=== PATIENT | female | born 1950 | race Caucasian/White ===

== ENCOUNTER 2019-11-01 13:56 | Outpatient (CLI) | payer MEDICARE, SELFPAY ==
--- NOTE | ~2019-11-01 | MM_ITS ---
EXAMINATION: MM screening luiza BI w armen HISTORY: Screening mammogram, family history of breast cancer in her mother. TECHNIQUE: Craniocaudal and mediolateral oblique 3-D tomosynthesis images were obtained and synthetic 2-D images were generated. CAD analysis was submitted and interpreted. COMPARISON: 10/27/2018, 08/14/2017, 08/05/2017, 04/22/2016 BREAST PARENCHYMAL COMPOSITION: The breasts are heterogeneously dense, which may obscure small masses . FINDINGS: There is no evidence of suspicious mass, calcification, or architectural distortion to sugg est malignancy in either breast. There has been no suspicious interval change. IMPRESSION: 1. No mammographic evidence of malignancy. 2. Recommend routine screening mammography in one year. BI-RADS Category 1: Negative Reviewed, dictated and finalized at location A.
--- NOTE | ~2019-11-01 | DEXA_ITS ---
Bone Density Report Name: Jane Pereyra Age: 68 Sex: Female Ethnicity: White Date of : 1950 Indication: postmenopausal osteoporosis; parental hip fracture; height loss; prior fracture; hysterectomy; Referring Provider: Valarie Velasquez Study: Bone densitometry was performed. Exam Date: November 01, 2019 Accession number: [id number] Bone Density: Region BMD T-score Z-score Classification AP Spine (L1-L4) 0.797 -2.3 -0.1 Osteopenia Femoral Neck (Left) 0.556 -2.6 -0.8 Osteoporosis Total Hip (Left) 0.646 -2.4 -0.9 Osteopenia Total Hip Bilateral Avg 0.633 -2.5 -1.0 Osteoporosis Femoral Neck (Right) 0.534 -2.8 -1.0 Osteoporosis Total Hip (Right) 0.619 -2.6 -1.1 Osteoporosis World Health Organization criteria for BMD impression classify patients as: Normal (T-score at or above -1.0), Osteopenia (T-score between -1.0 and -2.5), or Osteoporosis (T-score at or below -2.5). 10-year Fracture Risk: FRAX not reported because: Some T-score for Spine Total or Hip Total or Femoral Neck at or below -2.5 Previous Exams: Region Exam Age BMD T-score BMD Change BMD Change Date g/cm2 vs Baseline vs Previous AP Spine(L1-L4) 11/01/2019 68 0.797 -2.3 0.011(1.4%) -0.028(-3.4%)* 02/24/2017 66 0.824 -2.0 0.038(4.9%)* 0.038(4.9%)* 07/11/2014 63 0.786 -2.4 Total Hip(Left) 11/01/2019 68 0.646 -2.4 0.040(6.6%)* 0.026(4.2%) 02/24/2017 66 0.620 -2.6 0.014(2.3%) 0.014(2.3%) 07/11/2014 63 0.606 -2.8 Total Hip(Right) 11/01/2019 68 0.619 -2.6 -0.002(-0.3%) -0.009(-1.4%) 02/24/2017 66 0.627 -2.6 0.006(1.0%) 0.006(1.0%) 07/11/2014 63 0.621 -2.6 *Denotes significance at 95% confidence level, LSC for AP Spine = 0.022 g/cm2, LSC for Total Hip = 0.027 g/cm2 Clinical Information Provided by Patient: Has had a low trauma fracture Parent has had a hip fracture Has used the following medications: Vitamin D Has the following medical conditions: Hysterectomy Patient maximum height was 69 Menopause Age: 43 Drinks caffeinated beverages Onset of menses at age 10 Number of children 2 Impression: The patient has established osteoporosis, based on the Right Femoral Neck T-score and the existence of a prior fracture. The patient has risk factors, including: parental hip fracture, previous fracture. The BMD for the AP Spine(L1-L4) decreased, changing by -3.4% since the last DXA exam. Discussion: HIGH RISK OF FRACTURE. BONE DENSITY IS UNDESIRAB
== END 2019-11-01 13:57 | disposition home or self-care (01) ==
PROVIDERS: PCP Family Medicine; Visit Provider Nurse Practitioner
DX: Z12.31 Encounter for screening mammogram for malignant neoplasm of breast (principal); Z78.0 Asymptomatic menopausal state; M85.89 Other specified disorders of bone density and structure, multiple sites; M81.0 Age-related osteoporosis without current pathological fracture
CPT/HCPCS: 77063; 77067; 77080

== ENCOUNTER 2020-06-09 11:59 | Outpatient (CLI) | payer MEDICARE, SELFPAY ==
--- NOTE | ~2020-06-09 | CT_ITS ---
EXAMINATION:CT chest w con DATE: 06/09/2020 12:33 INDICATION: Ascending aortic aneurysm. TECHNIQUE: Computed tomography (CT) of the chest was performed with 75 mL Omnipaque 350 intravenous c ontrast. Automated exposure control and iterative reconstruction technique were employed. The dose-le ngth product (DLP) was 189.25 mGy-cm. COMPARISON: Chest CT 04/23/2019 FINDINGS: There is mild scarring at the lung apices. Again seen are numerous nodules and groundglass nodules scattered the lungs measuring up to 5 mm, likely benign. No pleural effusion. The heart size is normal. No pericardial effusion. There is ectasia of ascending aorta measuring 4.7 cm. Descending aorta is normal in caliber. There is moderate thoracic spondylosis. There is a hemangioma in upper th oracic spine. IMPRESSION: 1. Stable ectasia of ascending aorta measuring 4.7 cm. Reviewed, dictated and finalized at location A. ER/[facility]
[2020-06-09 12:25] LABS: Estimated Glomerular Filt Rate > 60
== END 2020-06-09 12:00 | disposition home or self-care (01) ==
PROVIDERS: PCP Family Medicine; Visit Provider Internal Medicine Cardiovascular Disease
DX: I71.2 Thoracic aortic aneurysm, without rupture (principal)
CPT/HCPCS: 71260; Q9967

== ENCOUNTER 2020-09-29 16:33 | Outpatient (CLI) | payer MEDICARE, SELFPAY ==
--- NOTE | ~2020-09-29 | CT_ITS ---
EXAMINATION: CT facial bones wo con DATE: 09/29/2020 16:55 INDICATION: Face injury. TECHNIQUE: Computed tomography (CT) of the facial bones and maxillofacial region was performed withou t intravenous contrast. Automated exposure control and iterative reconstruction technique were employ ed. The dose-length product was 283.00 mGy-cm. COMPARISON: None. FINDINGS: There is soft tissue swelling in the perihilar regions and right frontal scalp. The orbits are normal. There is a 2.5 cm mass in right sylvian fissure. There is a fracture of the right nasal b one. There is leftward deviation of the nasal septum. There is mild mucosal thickening in the ethmoid sinuses. IMPRESSION: 1. Fracture of the right nasal bone. 2. 2.5 cm mass in the right sylvian fissure, which may be an aneurysm or meningioma. Head CTA is mahad mmended. Reviewed, dictated and finalized at location A. OW SHADE CUTTER IMPRESSION: 1. Fracture of the right nasal bone. 2. 2.5 cm mass in the right sylvian fissure, which may be an aneurysm or mening ioma. Head CTA is recommended.
--- NOTE | ~2020-09-29 | CT_ITS ---
EXAMINATION: CT brain wo con DATE: 09/29/2020 16:56 INDICATION: Head injury. TECHNIQUE: Computed tomography (CT) of the head was performed without intravenous contrast. The mA wa s adjusted according to patient size. Iterative reconstruction technique was employed. The dose-lengt h product was 605.33 mGy-cm. COMPARISON: Head CT 08/17/2012 FINDINGS: There is a 1.8 x 2.3 x 2.4 cm hyperdense mass in right sylvian fissure. There are scattered areas of low attenuation in the cerebral white matter. There is no intracranial hemorrhage or acute ischemic infarct. There is a right frontal scalp hematoma. There is mild mucosal thickening in the pa ranasal sinuses. The orbits are normal. The mastoid air cells are normal. IMPRESSION: 1. 2.4 cm hyperdense mass in right sylvian fissure, which may be an aneurysm or meningioma. Head CTA is recommended. 2. Mild nonspecific cerebral white matter disease, which likely represents chronic small vessel ische sakshi disease. Reviewed, dictated and finalized at location A. PROFESSOR IMPRESSION: 1. 2.4 cm hyperdense mass in right sylvian fissure, which may be an aneurysm or meningioma. Head CTA is recommended. 2. Mild nonspecific cerebral white matter disease, which likely represents assistant department manager chely small vessel ischemic disease.
== END 2020-09-29 16:34 | disposition home or self-care (01) ==
PROVIDERS: PCP Family Medicine; Visit Provider Nurse Practitioner
DX: S02.2XXA Fracture of nasal bones, initial encounter for closed fracture (principal); S00.83XA Contusion of other part of head, initial encounter; W19.XXXA Unspecified fall, initial encounter; R93.89 Abnormal findings on diagnostic imaging of other specified body structures; R90.82 White matter disease, unspecified
CPT/HCPCS: 70450; 70486

== ENCOUNTER 2020-09-29 17:50 | Emergency (ER) | payer MEDICARE, SELFPAY ==
--- NOTE | ~2020-09-29 | CT_ITS ---
EXAMINATION: CTA brain carotid DATE: 09/29/2020 20:41 INDICATION: Brain mass. TECHNIQUE: Computed tomographic angiography (CTA) of the head was performed with 100 mL Omnipaque-350 intravenous contrast. CTA of the neck was performed with intravenous contrast. Automated exposure co ntrol and iterative reconstruction technique were employed. The dose-length product was 1019.34 mGy-c m. Maximum intensity projection and volume rendered 3D-reconstructions were created by the [employer] on a separate workstation. COMPARISON: Head CT 09/29/2020, chest CT 06/09/2020 FINDINGS: HEAD CTA: There is no acute ischemic infarct or intracranial hemorrhage. There is a 2.4 x 2.1 cm hype rdense mass in right sylvian fissure. The ventricles are normal in size. There is mild mucosal thicke mervin in the ethmoid sinuses. The mastoid air cells are normal. There is soft tissue swelling in the p eriorbital regions and right frontal scalp. There is a 4 mm aneurysm in a sulcus in posterior left fr ontal lobe. Right vertebral artery is dominant. There is no significant stenosis of basilar artery or the posterior cerebral arteries. There is a dissection of distal left cervical internal carotid gricelda ry. There is no significant stenosis of the anterior or middle cerebral arteries. Anterior communicat ing artery is normal. The posterior communicating arteries are normal. NECK CTA: There is mild scarring at the lung apices. Again seen are multiple nodules in the lungs dudley suring up to 4 mm, likely benign. There is ectasia of ascending aorta measuring 4.7 cm. 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 There is an intimal flap in distal right vertebral artery. There is mild plaque in proximal right internal carotid artery. There is 0% stenosis of the proximal right internal carotid artery relative to normal distal artery lumen diameter (NASCET criteria). The re is 0% stenosis of the proximal left internal carotid artery relative to normal distal artery lumen diameter. 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 There is mild cervical spondylosis. There is a hemangioma in T10 vertebral body. IMPRESSION: 1. 2.4 cm mass in right sylvian fissure, consistent with a meningioma. 2. 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 3. 0% stenosis of the proximal internal carotid arteries relative to normal distal artery lumen diam eters (NASCET criteria). 4. Dissections involving right subclavian artery, distal right vertebral artery, and cervical left in ternal carotid artery. 5. Stable ectasia of ascending aorta measuring 4.7 cm. Reviewed, dictated and finalized at location A. STRAIGHTENER IMPRESSION: 1. 2.4 cm mass in right sylvian fissure, consistent with a meningioma. 2. 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 3. 0% stenosis of the proximal internal carotid arteries relative to normal di stal artery lumen diameters (NASCET criteria). 4. Dissections involving right subclavian artery, distal right vertebral artery , and cervical left internal carotid artery. 5. Stable ectasia of ascending aorta measuring 4.7 cm.
[2020-09-29 19:25] VITALS: BP 176/116; PULSE 75; RESP 16; TEMP 37.1; O2SAT 99
[2020-09-29 19:45] VITALS: BP 185/116; PULSE 70; RESP 17; O2SAT 100
--- NOTE | 2020-09-29 19:48 | ED.FALL ---
HPI - Fall General Chief Complaint: Fall <CARTER Gutierrez Last Filed: 09/29/20 22:39> Stated Complaint: fall/needs more imaging <CARTER Gutierrez Last Filed: 09/29/20 22:39> Time Seen by Provider: 09/29/20 19:33 <CARTER Gutierrez Last Filed: 09/29/20 22:39> Source: patient <CARTER Gutierrez Last Filed: 09/29/20 22:39> Mode of arrival: ambulatory <CARTER Gutierrez Last Filed: 09/29/20 22:39> Limitations: no limitations <CARTER Gutierrez Last Filed: 09/29/20 22:39> History of Present Illness HPI Narrative: This is a 69 year old female that presents to the ER for abnormal imaging that was done outpatient. Reports she had a fall yesterday. Reports she was walking in the parking lot and tripped. Reports falling forward and hitting her face. Reports she was seen by her primary today and had some outpatient imaging. Reports she was told to come to the ED for further evaluation due to a mass versus an aneurysm. She is on Xarelto for A. fib. Denies loss of consciousness, other injuries, prodromal symptoms, vision changes, vomiting, numbness, or weakness. <CARTER Gutierrez Last Filed: 09/29/20 22:39> Related Data Home Medications: Home Medications Medication Instructions Recorded Confirmed metoprolol tartrate 100 mg tablet 50 mg PO tablet 09/13/19 09/29/20 rivaroxaban 20 mg tablet 20 mg PO DAILY 03/10/20 09/29/20 lisinopril 10 mg tablet 20 mg PO DAILY tablet 08/31/20 09/29/20 sotalol 80 mg tablet 40 mg PO BID tablet 08/31/20 09/29/20 <CARTER Guteirrez Last Filed: 09/29/20 22:39> Allergies/Adverse Reactions: Allergies Allergy/AdvReac Type Severity Reaction Status Date / Time No Known Allergies Allergy Verified 09/29/20 19:44 <CARTER Gutierrez Last Filed: 09/29/20 22:39> Review of Systems Review of Systems: Narrative: CONSTITUTIONAL: Denies fever EYES: Denies visual changes GASTROINTESTINAL: Denies vomiting MUSCULOSKELETAL: Denies back pain, joint pain, or myalgia. NEUROLOGIC: Denies headache, numbness, or weakness. <Tequila Hale PA-C - Last Filed: 09/29/20 22:39> All systems reviewed & are unremarkable except as noted in HPI and below <Tequila Hale PA-C - Last Filed: 09/29/20 22:39> PMFSH Past Medical History Medical History: Medical History Age-related osteoporosis without current pathological fracture Atrial fibrillation, chronic Breast cancer screening Coronary artery disease involving [place] coronary artery of [place] heart without angina pectoris Essential hypertension Hyperlipidemia, unspecified Hypothyroidism, unspecified <Tequila Hale PA-C - Last Filed: 09/29/20 22:39> Family History Family History: Family History Sibling Family history of malignant neoplasm of male breast, Onset Age: 30 Other Family history of cardiovascular disease Family history of malignant neoplasm of breast Hypertension <Tequila Hale PA-C - Last Filed: 09/29/20 22:39> Social History Social History: Social History Smoking status: Never smoker Second hand tobacco smoke exposure: No Alcohol intake: never Gender identity (if verbalized by the patient): Female Sexual Orientation (if Verbalized by the Patient): Straight or Heterosexual <Tequila Hale PA-C - Last Filed: 09/29/20 22:39> Exam Narrative: Exam Narrative: GENERAL: Elderly, well-nourished, and in no acute distress. HEAD: Normocephalic. Bruising of the upper and lower eyelids EYES: PERRLA and EOMI. ENT: Nares clear, no rhinorrhea or epistaxis. Mucous membranes moist. Oropharynx without tonsillar hypertrophy exudate or other lesions. Bilateral TMs pearly hawkins non-bulging NECK: Supple. No adenopathy or masses. CHEST: Clear to auscultation. No re
[2020-09-29] MEDS: LABETALOL HCL INJ 100 MG/20 ML VIAL 20 MG IV PUSH ×2 (19:54→21:21)
[2020-09-29 19:56] LABS: Basophils Percent Auto 0.5 % (0.2-1.2); Eosinophils Absolute Auto 0.1 K/mm3 (0-0.3); Eosinophils Percent Auto 1.8 % (0-4.4); Hematocrit 41.3 % (37.0-47.0); Hemoglobin 13.4 g/dL (12.0-15.0); Immature Granulocyte Absolute 0.01 K/mm3 (0.00-0.031); Immature Granulocyte Percent A 0.2 % (0-0.5); Lymphocytes Absolute Auto 2.05 K/mm3 (0.9-3.2); Lymphocytes Percent Auto 32.7 % (18.3-44.2); Mean Corpuscular HGB Conc 32.4 g/dl (32-36); Mean Corpuscular Hemoglobin 29.4 pg (26-34); Mean Corpuscular Volume 90.6 fl (80-100); Mean Platelet Volume 10.5 fl (7.4-10.4); Monocytes Absolute Auto 0.5 K/mm3 (0.1-0.6); Monocytes Percent Auto 7.8 % (2.6-8.5); Neutrophils Absolute Auto 3.6 K/mm3 (1.3-6.7); Platelet Count Result 189 k/mm3 (150-375); Red Blood Count 4.56 M/mm3 (4.2-5.4); Red Cell Distribution Width 13.7 % (11.5-14.5); White Blood Count 6.3 K/mm3 (4.5-10.0)
[2020-09-29 20:05] LABS: Prothrombin Time 13.4 Seconds (11.1-14.7)
[2020-09-29 20:06] LABS: Partial Thromboplastin Time 29.3 SECONDS (22.3-36.8)
[2020-09-29 20:09] LABS: Anion Gap 3 mmol/L (8-16); Blood Urea Nitrogen 12 mg/dL (7-17); Calcium 9.1 mg/dL (8.4-10.2); Carbon Dioxide 32 mmol/L (22-30); Chloride 105 mmol/L (98-107); Estimated CRCL calculation 76 ml/min; Estimated Glomerular Filt Rate > 60; Glucose 95 mg/dL (65-105); Potassium 3.6 mmol/L (3.4-5.0); Sodium 140 mmol/L (137-145)
[2020-09-29 20:22] VITALS: BP 176/108; PULSE 71; RESP 16; O2SAT 100
[2020-09-29 21:50] VITALS: BP 156/113; PULSE 75; RESP 16; O2SAT 99
[2020-09-29 22:39] VITALS: BP 152/104; PULSE 82; RESP 16; O2SAT 99
== END 2020-09-29 22:51 | disposition left against medical advice (07) ==
PROVIDERS: Physician Assistant; Emergency Provider Emergency Medicine; PCP Family Medicine
DX: I77.74 Dissection of vertebral artery (principal); I77.71 Dissection of carotid artery; I77.79 Dissection of other specified artery; I67.1 Cerebral aneurysm, nonruptured; S02.2XXA Fracture of nasal bones, initial encounter for closed fracture; I48.20 Chronic atrial fibrillation, unspecified; Z79.01 Long term (current) use of anticoagulants; M81.0 Age-related osteoporosis without current pathological fracture; I25.10 Atherosclerotic heart disease of native coronary artery without angina pectoris; I10 Essential (primary) hypertension; E78.5 Hyperlipidemia, unspecified; E03.9 Hypothyroidism, unspecified; W01.0XXA Fall on same level from slipping, tripping and stumbling without subsequent striking against object, initial encounter
CPT/HCPCS: 36415; 70450; 70486; 70496; 70498; 80048; 85025; 85610; 85730; 96374; 96376; 99284; Q9967

== ENCOUNTER 2020-10-14 00:55 | Inpatient (IN) | payer MEDICARE, SELFPAY ==
[2020-10-14] VITALS (24 sets, daily range): BP systolic 112–151; BP diastolic 78–97; PULSE 60–190; RESP 12–24; TEMP 36.1–36.7; O2SAT 94–99; BMI 28.4
--- NOTE | ~2020-10-14 | XR_ITS ---
EXAMINATION: XR chest 1V portable DATE: 10/14/2020 01:20 INDICATION: Chest pain. TECHNIQUE: A single frontal view of the chest was obtained on 2 radiographs. COMPARISON: Chest 2 views 08/05/2017, chest CT 06/09/2020, neck CTA 09/29/2020 FINDINGS: There is mild scarring at the lung apices. There is mild atelectasis at the lung bases. No pleural effusion or pneumothorax. The heart size is normal. IMPRESSION: 1. Mild atelectasis at the lung bases and mild scarring at the lung apices. Reviewed, dictated and finalized at location A. [facility]
--- NOTE | 2020-10-14 00:59 | PC.NURSE ---
12mg adenosine given at this time.
--- NOTE | 2020-10-14 01:02 | PC.NURSE ---
pt given 20mg cardizem at this time
[2020-10-14 01:24] LABS: Basophils Percent Auto 0.4 % (0.2-1.2); Eosinophils Absolute Auto 0.1 K/mm3 (0-0.3); Eosinophils Percent Auto 0.8 % (0-4.4); Hematocrit 44.2 % (37.0-47.0); Hemoglobin 14.3 g/dL (12.0-15.0); Immature Granulocyte Absolute 0.04 K/mm3 (0.00-0.031); Immature Granulocyte Percent A 0.4 % (0-0.5); Lymphocytes Absolute Auto 2.28 K/mm3 (0.9-3.2); Mean Corpuscular HGB Conc 32.4 g/dl (32-36); Mean Corpuscular Hemoglobin 30.4 pg (26-34); Mean Corpuscular Volume 93.8 fl (80-100); Mean Platelet Volume 10.6 fl (7.4-10.4); Monocytes Absolute Auto 0.5 K/mm3 (0.1-0.6); Monocytes Percent Auto 4.8 % (2.6-8.5); Neutrophils Absolute Auto 7.4 K/mm3 (1.3-6.7); Neutrophils Percent Auto 71.6 % (45.5-73.1); Platelet Count Result 265 k/mm3 (150-375); Red Blood Count 4.71 M/mm3 (4.2-5.4); Red Cell Distribution Width 13.6 % (11.5-14.5); White Blood Count 10.4 K/mm3 (4.5-10.0)
[2020-10-14 01:34] LABS: INR 1.7; Prothrombin Time 20.2 Seconds (11.1-14.7)
[2020-10-14 01:35] LABS: Alanine Aminotransferase 182 U/L (4-35); Albumin Level 3.7 g/dL (3.5-5.1); Alkaline Phosphatase 71 U/L (38-126); Anion Gap 6 mmol/L (8-16); Aspartate Amino Transferase 227 U/L (14-36); Bilirubin,Total 0.4 mg/dL (0.2-1.3); Blood Urea Nitrogen 24 mg/dL (7-17); Carbon Dioxide 29 mmol/L (22-30); Chloride 106 mmol/L (98-107); Estimated CRCL calculation 54 ml/min; Estimated Glomerular Filt Rate 55; Glucose 214 mg/dL (65-105); Partial Thromboplastin Time 36.5 SECONDS (22.3-36.8); Potassium 3.9 mmol/L (3.4-5.0); Sodium 141 mmol/L (137-145)
--- NOTE | 2020-10-14 01:47 | ECG_ITS ---
Measurements Intervals [place] Rate: 193 P: [place]: 0 QRS: 6 QRSD: 101 T: 144 QT: 246 QTc: 441 Interpretive Statements SUPRAVENTRICULAR TACHYCARDIA LEFT VENTRICULAR HYPERTROPHY WITH ST-T CHANGE ST-T WAVE ABNORMALITY IN ANTEROLAT/HIGH LAT LEADS- CONSIDER ISCHEMIA OR RATE RELATED BASELINE WANDER- V3-V5 ABNORMAL ECG Electronically Signed On 10-14-2020 7:34:56 GAME PROGRAMER by Black Zeng D.O.
[2020-10-14 01:49] LABS: NT Pro B Type Natriuretic Pept 1330 PG/ML (5-100); Troponin I 0.084 ng/mL (0.000-0.034)
--- NOTE | 2020-10-14 01:49 | ECG_ITS ---
Measurements Intervals [place] Rate: 81 P: [place]: 0 QRS: 15 QRSD: 87 T: 69 QT: 327 QTc: 381 Interpretive Statements SINUS RHYTHM WITH SINUS ARRHYTHMIA WITH FIRST DEGREE AV BLOCK BORDERLINE ST-T WAVE ABNORMALITY- DIFFUSE LEADS BASELINE ARTIFACT- III, V1-V3 ABNORMAL ECG Electronically Signed On 10-14-2020 7:25:47 CLIENT RELATION SPECIALIST by Black Zeng D.O.
--- NOTE | 2020-10-14 02:04 | ED.GENADULT ---
HPI - General Adult General Chief complaint: Arrhythmia/Palpitations Stated complaint: rapid heart rate History of Present Illness HPI narrative: Patient is a 69-year-old female who presents the emergency department with chief complaint of chest pain and palpitations. The patient reports she has history of atrial fibrillation and tonight noticed that she started having discomfort in her chest. The patient noticed also that her heart was beating fast when EMS was called she was found to have a heart rate in the 200s. Patient was treated with adenosine in the field which had a brief slowing of the patient's heart rate they were unable to tell whether the patient was in a supraventricular rhythm or she was atrial fibrillation. The patient does carry a prior history of atrial fibrillation she is on chronic anticoagulation on sotalol. The patient states that she was having chest discomfort whenever her heart was beating fast. Related Data Home Medications Medication Instructions Recorded Confirmed metoprolol tartrate 100 mg tablet 50 mg PO tablet 09/13/19 09/29/20 rivaroxaban 20 mg tablet 20 mg PO DAILY 03/10/20 09/29/20 lisinopril 10 mg tablet 20 mg PO DAILY tablet 08/31/20 09/29/20 sotalol 80 mg tablet 40 mg PO BID tablet 08/31/20 09/29/20 Allergies Allergy/AdvReac Type Severity Reaction Status Date / Time No Known Allergies Allergy Verified 09/29/20 19:44 Review of Systems Review of Systems: Narrative: GENERAL: Well-appearing, well-nourished, and in no acute distress. HEAD: Normocephalic, atraumatic. EYES: PERRLA and EOMI. ENT: Nares clear, no rhinorrhea or epistaxis. Mucous membranes moist. NECK: Supple. CHEST: Clear to auscultation. No respiratory distress. HEART: Regular rate and rhythm. No murmur heard. Normal peripheral pulses. ABDOMEN: Soft, nontender, nondistended, normal active bowel sounds. EXTREMITIES: Normal range of motion. No edema. SKIN: Warm, dry, no rash. NEURO: No focal deficits. Alert and oriented x3. PSYCH: Normal mood and affect. [facility] Past Medical History Medical History Age-related osteoporosis without current pathological fracture Atrial fibrillation, chronic Breast cancer screening Coronary artery disease involving [place] coronary artery of [place] heart without angina pectoris Essential hypertension Hyperlipidemia, unspecified Hypothyroidism, unspecified Family History Family History Sibling Family history of malignant neoplasm of male breast, Onset Age: 30 Other Family history of cardiovascular disease Family history of malignant neoplasm of breast Hypertension Social History Social History Smoking status: Never smoker Second hand tobacco smoke exposure: No Alcohol intake: never Gender identity (if verbalized by the patient): Female Exam Narrative: Exam Narrative: GENERAL: Well-appearing, well-nourished, and in no acute distress. HEAD: Normocephalic, atraumatic. EYES: PERRLA and EOMI. ENT: Nares clear, no rhinorrhea or epistaxis. Mucous membranes moist. NECK: Supple. CHEST: Clear to auscultation. No respiratory distress. HEART: Regular rate and rhythm. No murmur heard. Normal peripheral pulses. ABDOMEN: Soft, nontender, nondistended, normal active bowel sounds. EXTREMITIES: Normal range of motion. No edema. SKIN: Warm, dry, no rash. NEURO: No focal deficits. Alert and oriented x3. PSYCH: Normal mood and affect. Course Vital Signs Vital signs: Vital Signs Temperature 36.7 C 10/14/20 00:59 Pulse Rate 188 H 10/14/20 00:59 Respiratory Rate 24 H 10/14/20 00:59 Blood Pressure 143/89 H 10/14/20 00:59 Pulse Oximetry 94 10/14/20 00:59 Temperature 36.7 C 10/14/20 00:59 Pulse Rate 64 10/14/20 01:38 Respiratory Rate 18 10/14/20 01:38 Blood Pressure 112
[2020-10-14 02:39] LABS: Add Urine Microscopic? YES; Appearance Urine Cloudy (Clear); Bacteria Urine Trace /hpf; Bilirubin Urine Negative (Negative); Color Urine Yellow (Yellow); Glucose Urine UA 1+ mg/dL (Negative); Ketones Urine Negative (Negative); Leukocyte Esterase Ur Negative LEU/UL (Negative); Mucus Urine Rare /lpf; Nitrate Urine Negative (Negative); Protein Urine 2+ mg/dL (Negative); Specific Grav Ur 1.013 (1.001-1.035); Squamous Epithelial Cell Urine Occasional /hpf (Few); Urobilinogen Urine Negative mg/dL (<2.0)
[2020-10-14 02:40] LABS: Blood Urine Negative (Negative)
[2020-10-14] MEDS: dilTIAZem HCl INJ 25 MG/5 ML VIAL (03:16)
--- NOTE | 2020-10-14 03:16 | PC.NURSE ---
vorb-20mg diltiazem
[2020-10-14 04:35] LABS: Troponin I 0.402 ng/mL (0.000-0.034)
--- NOTE | 2020-10-14 04:49 | ADMGEN ---
This patient, Jane Pereyra, was admitted to IMU Room 205-01. Patient/family oriented to hospital policies and general routines including ID bracelet, bed and alarms, visiting hours, pain management, procedures, bathroom and other care routines, personal items, smoking policy, room service/diet, and visiting hours. Information on how to activate the Rapid Response Team has been discussed. Patient/Family are encouraged to report perceived risks to care and to ask questions if they do not understand what they are told or what they should do.
--- NOTE | 2020-10-14 05:12 | ECG_ITS ---
Measurements Intervals [place] Rate: 66 P: 65 [place]: 181 QRS: 7 QRSD: 85 T: 61 QT: 453 QTc: 475 Interpretive Statements SINUS RHYTHM PROLONGED QT INTERVAL ABNORMAL ECG Electronically Signed On 10-14-2020 7:27:53 JEWEL SETTER by Black Zeng D.O.
[2020-10-14 05:41] LABS: Troponin I 0.453 ng/mL (0.000-0.034)
--- NOTE | 2020-10-14 05:47 | PM.IMHP ---
H&P: HPI History of Present Illness Date/Time: 10/14/20 05:47 Chief Complaint: Palpitations++ Narrative: This is a pleasant 69 year old female with known history of paroxysmal atrial fibrillation on chronic anticoagulation with Xarelto, hypothyroidism, HTN, and hyperlipidemia who presented to the hospital with a complaint of heart palpitations this evening. She states her symptoms started around 8 pm. She denies any overt chest pain but stated that her chest felt weird due to her rapid heart rate. EMS found the patient with a heart rate in the 200s on arrival. ER provider managed to slow her heart rate down and observe a rhythm of atrial fibrillation with 12 mg of Adenosine IVP. The patient was started on a Cardizem IV drip for rate control in the ER. Routine labs were obtained which showed a mildly elevated troponin in the ER today as well as elevated liver enzymes. The patient has been compliant with her medications. She has a previous history of myocardial infarction but denies any history of stents. On further questioning she denies any fever, chills, headache, nausea, coughing, shortness of breath, abdominal pain, vomiting, diarrhea or rectal bleeding. The patient reports suffering a fall a few weeks ago that led to facial trauma. She doesn't believe she passed out but can't tell me the details surrounding her fall. Review of Systems Review of Systems: All systems reviewed & are unremarkable except as noted in HPI and below PMFSH Past Medical History Medical History Age-related osteoporosis without current pathological fracture Atrial fibrillation, chronic Breast cancer screening Coronary artery disease involving [place] coronary artery of [place] heart without angina pectoris Essential hypertension Hyperlipidemia, unspecified Hypothyroidism, unspecified Family History Family History Sibling Family history of malignant neoplasm of male breast, Onset Age: 30 Other Family history of cardiovascular disease Family history of malignant neoplasm of breast Hypertension Social History Social History Smoking status: Never smoker Second hand tobacco smoke exposure: No Alcohol intake: never Substance use: never Gender identity (if verbalized by the patient): Female Spiritual care concerns: Yes ([employer] [place]) Comments Past surgical history is reviewed and noncontributory. Meds Home Medications and Allergies Home Medications Medication Instructions Recorded Confirmed Type metoprolol tartrate 100 mg tablet 50 mg PO BID tablet 09/13/19 10/14/20 History rivaroxaban 20 mg tablet 20 mg PO DAILY 03/10/20 10/14/20 History lisinopril 10 mg tablet 20 mg PO DAILY tablet 08/31/20 10/14/20 History sotalol 80 mg tablet 40 mg PO BID tablet 08/31/20 10/14/20 History alendronate 70 mg PO WEEKLY 10/14/20 10/14/20 History atorvastatin 20 mg PO DAILY 10/14/20 10/14/20 History levothyroxine 75 mcg PO DAILY 10/14/20 10/14/20 History Allergies Allergy/AdvReac Type Severity Reaction Status Date / Time No Known Allergies Allergy Verified 09/29/20 19:44 Vital Signs Vital Signs - 24 hr 10/14/20 00:59 10/14/20 01:08 10/14/20 01:15 Temperature 36.7 C Pulse Rate 188 H 78 98 Respiratory Rate 24 H 18 Blood Pressure 143/89 H 143/89 H 143/89 H Pulse Oximetry 94 99 10/14/20 01:23 10/14/20 01:38 10/14/20 03:12 Temperature Pulse Rate 93 64 190 H Respiratory Rate 16 18 Blood Pressure 112/87 112/84 Pulse Oximetry 96 99 10/14/20 03:18 10/14/20 04:35 10/14/20 05:00 Temperature 36.1 C L Pulse Rate 95 75 72 Respiratory Rate 20 18 18 Blood Pressure 112/94 H 122/91 H 132/87 Pulse Oximetry 97 98 99 Exam Const: General: cooperative, no acute distress, alert and awake Nutritional Appearance: well nourished Orientation/consciousn
[2020-10-14] MEDS: ACETAMINOPHEN 325 MG TABLET 650 MG PO ×2 (06:16→12:15)
--- NOTE | 2020-10-14 06:20 | ECHO_ITS ---
Patient Info Name: Jane Pereyra Age: 69 years : 1950 Gender: Female Ht: 69 in Wt: 192 lbs BSA: 2.08 m2 HR: 78 bpm BP: 132 / 87 mmHg Heart Rhythm: Sinus Rhythm Technical Quality: Good Exam Date: 10/14/2020 8:55 AM Exam Location: [facility] Pulmonary Exam Room: Patient Status: Inpatient Admit Date: 10/14/2020 Staff Ordering Physician: Sae Enriquez MD Post Partum Nurse: Shaye Vides RDCS Attending Provider: Pramod Gonzalez MD Referring Physician: Zoe LINDSAY; Exam Type: CA echo doppler color flow Study Info Indications - AFIB W/ RVRV Complete two-dimensional, color flow and Doppler transthoracic echocardiogram is performed. Summary 1. Complete two-dimensional, color flow and Doppler transthoracic echocardiogram is performed. 2. Left ventricular systolic function is normal, estimated at 65-70%. 3. There is mildly increased left ventricular wall thickness. 4. The left ventricular diastolic function is grade II diastolic dysfunction. 5. Left atrial chamber dimension is mildly enlarged. 6. There is no aortic valve stenosis. 7. There is mild tricuspid valve regurgitation. 8. Mild pulmonary hypertension, estimated pulmonary arterial systolic pressure is 35 mmHg. Left Ventricle Left ventricular chamber dimension is normal. Left ventricular systolic function is normal, estimated at 65-70%. There is mildly increased left ventricular wall thickness. The left ventricular diastolic function is grade II diastolic dysfunction. Right Ventricle Right ventricular chamber dimension is normal. Right ventricular systolic function is normal. Left Atria Left atrial chamber dimension is mildly enlarged. Right Atria Right atrial chamber dimension is mildly enlarged. Aortic Valve The aortic valve is probable trileaflet. There is mild aortic valve sclerosis. There is no aortic valve stenosis. There is no aortic valve regurgitation. Pulmonic Valve The pulmonic valve is not well visualized. There is trace pulmonic regurgitation. Mitral Valve The mitral valve has normal leaflets. There is trace mitral valve regurgitation. The mitral valve annulus is mildly calcified. Tricuspid Valve The tricuspid valve leaflets are normal. There is mild tricuspid valve regurgitation. Mild pulmonary hypertension, estimated pulmonary arterial systolic pressure is 35 mmHg. Pericardium/Pleural The pericardium appears normal. There is small pericardial effusion. Inferior Vena Cava Normal inferior vena cava with >50% collapse upon inspiration consistent with normal right atrial pressure, 5 mmHg. Aorta The aortic root size at the sinus of Valsalva is normal. There is mild aortic atherosclerosis. Left Ventricular Outflow Tract Name Value Normal LVOT 2D LVOT Diameter 2.0 cm LVOT Doppler LVOT Peak Gradient 5 mmHg LVOT Mean Gradient 3 mmHg LVOT VTI 25 cm LVOT VTI/AV VTI Ratio 0.8 LVOT Stroke Volume 78 ml LVOT CO
[2020-10-14 07:26] LABS: Hemoglobin A1C 5.2 % (<5.7)
[2020-10-14 07:46] LABS: Troponin I 0.483 ng/mL (0.000-0.034)
[2020-10-14] MEDS: METOPROLOL TARTRATE 50 MG TAB PO (08:18)
[2020-10-14] MEDS: ASPIRIN 81 MG CHEWABLE TABLET PO (08:18)
[2020-10-14] MEDS: LEVOTHYROXINE SODIUM 75 MCG TABLET PO (08:18)
[2020-10-14] MEDS: SOTALOL HCL 40 MG TABLET PO ×2 (08:18→16:14)
[2020-10-14] MEDS: ATORVASTATIN 20 MG TABLET PO (08:18)
[2020-10-14] MEDS: lisinopriL 20 MG TABLET PO (08:18)
--- NOTE | 2020-10-14 09:17 | PM.IMPN ---
Progress Note: A&P Assessment and Plan (1) Atrial fibrillation with rapid ventricular response: Code(s): I48.91 - Unspecified atrial fibrillation Status: Resolved Assessment and Plan: convered to sinus rhytm with cardizem gtt. restarted on sotalol and metoprolol which are home meds. TSH nromal. ECHO pending. (2) Elevated troponin: Code(s): R77.8 - Other specified abnormalities of plasma proteins Status: Acute Assessment and Plan: serial CE with elevation. cardiology consultation (3) Transaminitis: Code(s): R74.01 - Elevation of levels of liver transaminase levels Status: Acute Assessment and Plan: unclear etiology. will rehcekc to monitor. (4) Abnormal glucose: Code(s): R73.09 - Other abnormal glucose Status: Acute Assessment and Plan: check a1c (5) Hypothyroidism, unspecified: Qualifiers: Hypothyroidism type: unspecified Qualified Code(s): E03.9 - Hypothyroidism, unspecified Code(s): E03.9 - Hypothyroidism, unspecified Status: Chronic Assessment and Plan: tsh nromal (6) Hyperlipidemia, unspecified: Qualifiers: Hyperlipidemia type: unspecified Qualified Code(s): E78.5 - Hyperlipidemia, unspecified Code(s): E78.5 - Hyperlipidemia, unspecified Status: Chronic Assessment and Plan: home meds (7) Essential hypertension: Code(s): I10 - Essential (primary) hypertension Status: Chronic Assessment and Plan: stable. home meds (8) Aneurysm, cerebral: Code(s): I67.1 - Cerebral aneurysm, nonruptured Status: Acute Assessment and Plan: Recent fall with noted workup found 4 mm saccular aneurysm left frontal lobe: Head/Neck CTA 09/29/20 20:43 IMPRESSION: 1. 2.4 cm mass in right sylvian fissure, consistent with a meningioma. 2. 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 3. 0% stenosis of the proximal internal carotid arteries relative to normal distal artery lumen diameters (NASCET criteria). 4. Dissections involving right subclavian artery, distal right vertebral artery, and cervical left internal carotid artery. 5. Stable ectasia of ascending aorta measuring 4.7 cm. She left against medical advice at that time a month ago. she is planned to see neurosurgery soon for this. Subjective Date/time seen: 10/14/20 09:17 Interval history: no overnight events, remainson sinus rhythm. no chest pain, sob. feels well. fell couple of week ago and had aneurysm in her brain. no weakness or headache Review of Systems Constitutional: Constitutional: Denies chills and Denies lethargy Eyes: Eyes: Denies blurry vision and Denies photophobia ENT: Denies epistaxis, Denies nasal discharge and Denies tinnitus Cardiovascular: Cardiovascular: Denies chest pain, Reports lightheadedness and Reports palpitations Respiratory: Respiratory: Denies dyspnea and Denies dyspnea on exertion Gastrointestinal: Gastrointestinal: Denies abdominal pain, Denies bloating, Denies nausea and Denies vomiting Genitourinary: Genitourinary: Denies hematuria and Denies flank pain Musculoskeletal: Musculoskeletal: Denies arthralgias and Denies joint swelling Integumentary/Breasts: Skin/Breast: Denies dry skin and Denies pruritus Neurologic: Denies headache(s) and Denies numbness Psychiatric: Psychiatric: Denies anxiety and Denies depression Exam Const: General: cooperative, no acute distress, alert and awake Nutritional Appearance: well nourished Orientation/consciousness: patient oriented x3 HENMT: Head: normal to inspection and periorbital ecchymosis General nose exam: Normal external nose present Face and sinus: edema Mouth: Yes Normal oral and palatal mucosa present and Yes oropharynx normal Eyes: Pupils: Equal, round and reactive pupils present EOM: EOMs intact bilaterally Neck: Neck: supple and no JVD Thyroid: thyroid normal Lymphatic: lympha
[2020-10-14 10:31] LABS: Alanine Aminotransferase 168 U/L (4-35); Albumin Level 3.9 g/dL (3.5-5.1); Alkaline Phosphatase 77 U/L (38-126); Aspartate Amino Transferase 146 U/L (14-36); Bilirubin,Total 0.4 mg/dL (0.2-1.3)
[2020-10-14] MEDS: RIVAROXABAN 20 MG TABLET PO (16:14)
--- NOTE | 2020-10-14 16:57 | PM.CNCAR ---
Assessment and Plan Assessment and plan (1) SVT (supraventricular tachycardia): Code(s): I47.1 - Supraventricular tachycardia Status: Acute Assessment and Plan: This appears to be a new diagnosis. Rapid narrow complex regular arrhythmia consistent with SVT, possible AVNRT, less likely atrial flutter with 1:1 conduction. Patient highly symptomatic and did not tolerate well. No documented atrial fibrillation thus far this hospitalization. Maintaining sinus rhythm upon resumption of home medical therapy. Continue metoprolol and sotalol. Discussed that titration of metoprolol to 75 mg twice daily as tolerated. Continue telemetry monitoring overnight. If stable without recurrence consider discharge home tomorrow. (2) Paroxysmal atrial fibrillation: Code(s): I48.0 - Paroxysmal atrial fibrillation Status: Acute Assessment and Plan: Longstanding history none this hospitalization today. Continue medical therapy and systemic anticoagulation. (3) Encounter for monitoring sotalol therapy: Code(s): Z51.81 - Encounter for therapeutic drug level monitoring; Z79.899 - Other intermediate project manager (current) drug therapy Status: Acute Assessment and Plan: QT corrected 475 milliseconds. Continue current regimen. Recheck 12 lead EKG in a.m.. (4) QT prolongation: Code(s): R94.31 - Abnormal electrocardiogram [ECG] [EKG] Status: Acute Assessment and Plan: Mild prolongation 475 milliseconds as noted above. Recheck in a.m.. Continue sotalol 40 mg twice daily. (5) Elevated troponin: Code(s): R77.8 - Other specified abnormalities of plasma proteins Status: Acute Assessment and Plan: Most likely secondary to very rapid SVT. Patient has a history of elevated troponin with negative ischemic evaluation. Records indicate normal coronary anatomy left heart catheterization 2008. Follow-up with us as an outpatient. Will discuss ischemic evaluation at that time. EKG without acute ischemic changes. 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 Expressed my concerns given these findings and the fact that she left against medical advice from the emergency department. We discussed the risks on anticoagulation and or propagation of the dissections with potential catastrophic complications in this regard. Defer to primary service. (7) Aortic aneurysm: Code(s): I71.9 - Aortic aneurysm of unspecified site, without rupture Status: Acute Assessment and Plan: Moderate in size 4.7 cm stable. History of Present Illness History of Present Illness Consult date/time: Date of service: 10/14/20 16:57 Cardiology consultation at the request of Dr. Enriquez for our opinion regarding atrial fibrillation with RVR Requesting physician: Sae Enriquez MD Consult reason: atrial fibrillation Reason For Visit: atrial fibrillation w/ rapid ventricular response Narrative: Patient is a complicated 69 year female followed by Dr. Christine as an outpatient with a history of paroxysmal atrial fibrillation maintained on sotalol, metoprolol, and Xarelto. Patient presents to the emergency department with complaints of very rapid heart rate, fatigue, chest discomfort radiating to her left arm, and shortness of breath. Patient states symptoms began around 8 or 9:00 p.m. and she called EMS as she could not take it any longer. Upon their arrival she was noted to be very tachycardic with heart rate around 200 beats per minute. She is given IV adenosine 6 mg and 12 mg subsequently which day described as suggesting underlying atrial fibrillation. Twelve lead EKG in the emergency department is clearly not atrial fi
[2020-10-14] MEDS: METOPROLOL TARTRATE 25 MG TABLET 75 MG PO (20:20)
[2020-10-15] VITALS (18 sets, daily range): BP systolic 110–136; BP diastolic 70–90; PULSE 56–85; RESP 18–20; TEMP 36.3–36.4; O2SAT 92–100
--- NOTE | 2020-10-15 03:01 | PC.NURSE ---
Daylight Savings Time For Daylight Savings Time Ending in the Fall - Clocks are moved back. For Daylight Savings Time Beginning in the Spring - Clocks are moved ahead. For [facility], the time of change occurs at 0200 hrs. Time is taken from the senior sql server developer. This entry on the patient's chart recognizes the change in time reflected during documentation. Example: 2 entries for vital signs may be charted for 0200 hrs.
[2020-10-15 04:58] LABS: Basophils Percent Auto 0.4 % (0.2-1.2); Eosinophils Absolute Auto 0.2 K/mm3 (0-0.3); Eosinophils Percent Auto 2.4 % (0-4.4); Hematocrit 39.9 % (37.0-47.0); Immature Granulocyte Absolute 0.02 K/mm3 (0.00-0.031); Immature Granulocyte Percent A 0.3 % (0-0.5); Lymphocytes Absolute Auto 2.28 K/mm3 (0.9-3.2); Lymphocytes Percent Auto 32.7 % (18.3-44.2); Mean Corpuscular HGB Conc 32.6 g/dl (32-36); Mean Corpuscular Hemoglobin 29.6 pg (26-34); Mean Corpuscular Volume 90.9 fl (80-100); Mean Platelet Volume 10.6 fl (7.4-10.4); Monocytes Absolute Auto 0.5 K/mm3 (0.1-0.6); Monocytes Percent Auto 7.7 % (2.6-8.5); Neutrophils Absolute Auto 3.9 K/mm3 (1.3-6.7); Neutrophils Percent Auto 56.5 % (45.5-73.1); Platelet Count Result 194 k/mm3 (150-375); Red Blood Count 4.39 M/mm3 (4.2-5.4); Red Cell Distribution Width 13.8 % (11.5-14.5)
[2020-10-15 05:11] LABS: Alanine Aminotransferase 96 U/L (4-35); Albumin Level 3.3 g/dL (3.5-5.1); Alkaline Phosphatase 59 U/L (38-126); Anion Gap 2 mmol/L (8-16); Aspartate Amino Transferase 53 U/L (14-36); Bilirubin,Total 0.5 mg/dL (0.2-1.3); Blood Urea Nitrogen 16 mg/dL (7-17); Calcium 8.9 mg/dL (8.4-10.2); Carbon Dioxide 30 mmol/L (22-30); Chloride 108 mmol/L (98-107); Estimated CRCL calculation 75 ml/min; Estimated Glomerular Filt Rate > 60; Glucose 101 mg/dL (65-105); Potassium 3.7 mmol/L (3.4-5.0); Sodium 140 mmol/L (137-145)
[2020-10-15] MEDS: LEVOTHYROXINE SODIUM 75 MCG TABLET PO (05:50)
[2020-10-15] MEDS: ACETAMINOPHEN 325 MG TABLET 650 MG PO (08:10)
[2020-10-15] MEDS: SOTALOL HCL 40 MG TABLET PO (09:32)
[2020-10-15] MEDS: METOPROLOL TARTRATE 25 MG TABLET 75 MG PO ×2 (09:32→21:02)
[2020-10-15] MEDS: lisinopriL 20 MG TABLET PO (09:32)
[2020-10-15] MEDS: ATORVASTATIN 20 MG TABLET PO (09:33)
[2020-10-15] MEDS: ASPIRIN 81 MG CHEWABLE TABLET PO (09:34)
--- NOTE | 2020-10-15 10:52 | ECG_ITS ---
Measurements Intervals [place] Rate: 55 P: -41 NM: 156 QRS: -6 QRSD: 85 T: 47 QT: 516 QTc: 497 Interpretive Statements SINUS BRADYCARDIA ATRIAL AND VENTRICULAR PREMATURE COMPLEXES BORDERLINE ST ABNORMALITY- HIGH LATERAL LEADS PROLONGED QT INTERVAL BASELINE ARTIFACT- I, III, AVL, AVF ABNORMAL ECG Electronically Signed On 10-15-2020 14:14:42 CDT by Black Zeng D.O.
--- NOTE | 2020-10-15 12:40 | PM.PNCARD ---
Progress Note: A&P Assessment and Plan (1) SVT (supraventricular tachycardia): Code(s): I47.1 - Supraventricular tachycardia Status: Acute Assessment and Plan: This appears to be a new diagnosis. Rapid narrow complex regular arrhythmia consistent with SVT, possible AVNRT, less likely atrial flutter with 1:1 conduction. Patient highly symptomatic and did not tolerate well. No documented atrial fibrillation thus far this hospitalization. Maintaining sinus rhythm upon resumption of home medical therapy. Discontinue sotalol due to QT prolongation. Increase metoprolol to 100 mg twice daily starting 2 days post discharge. Follow-up in the office in 2 weeks. (2) Paroxysmal atrial fibrillation: Code(s): I48.0 - Paroxysmal atrial fibrillation Status: Acute Assessment and Plan: Longstanding history none this hospitalization today. Continue medical therapy and systemic anticoagulation. (3) Encounter for monitoring sotalol therapy: Code(s): Z51.81 - Encounter for therapeutic drug level monitoring; Z79.899 - Other residential (current) drug therapy Status: Acute Assessment and Plan: QT corrected 475 milliseconds. Continue current regimen. Recheck 12 lead EKG in a.m.. (4) QT prolongation: Code(s): R94.31 - Abnormal electrocardiogram [ECG] [EKG] Status: Acute Assessment and Plan: QT prolonged 505 milliseconds on 12 EKG this morning. Unfortunately risk for continuing sotalol likely outweighs benefit. Recommend discontinuation at this time. Increase metoprolol to 100 mg twice daily in 2 days post discharge. (5) Elevated troponin: Code(s): R77.8 - Other specified abnormalities of plasma proteins Status: Acute Assessment and Plan: Most likely secondary to very rapid SVT. Patient has a history of elevated troponin with negative ischemic evaluation. Records indicate normal coronary anatomy left heart catheterization 2008. Follow-up with us as an outpatient. Will discuss ischemic evaluation at that time. EKG without acute ischemic changes. 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 Expressed my concerns given these findings and the fact that she left against medical advice from the emergency department. We discussed the risks on anticoagulation and or propagation of the dissections with potential catastrophic complications in this regard. Defer to primary service. (7) Aortic aneurysm: Code(s): I71.9 - Aortic aneurysm of unspecified site, without rupture Status: Acute Assessment and Plan: Moderate in size 4.7 cm stable. Subjective Date/time seen: Date of Service: 10/15/20 12:40 Follow-up for SVT, history of atrial fibrillation No new issues overnight. Telemetry revealed asymptomatic transient atrial fibrillation with RVR earlier this morning. Otherwise no other episodes, no recurrent SVT. No chest pain, shortness of breath. Patient states she feels well on his rate to be discharged home. Review of Systems Review of Systems: All systems reviewed & are unremarkable except as noted in HPI and below Constitutional: Constitutional: Reports as per HPI, Reports no additional constitutional complaints and Reports weakness Eyes: Eyes: Reports as per HPI and Reports no additional eye complaints ENT: Reports system reviewed and no additional complaints, except as documented and Reports as per HPI Cardiovascular: Cardiovascular: Reports as per HPI, Reports no additional cardiovascular complaints, Reports chest pain, Reports palpitations and Reports dyspnea Respiratory: Respiratory: Reports as per HPI, Reports no additional respiratory complaints
--- NOTE | 2020-10-15 15:07 | PM.IMPN ---
Progress Note: A&P Assessment and Plan (1) SVT (supraventricular tachycardia): Code(s): I47.1 - Supraventricular tachycardia Status: Acute Assessment and Plan: On Metoprolol Sotalol has been discontinued due to QT prolongation. Appreciate Cardiology note (2) QT prolongation: Code(s): R94.31 - Abnormal electrocardiogram [ECG] [EKG] Status: Acute Assessment and Plan: Will stay overnight on Telemetry to monitor Sotalol has been stopped. (3) Elevated troponin: Code(s): R77.8 - Other specified abnormalities of plasma proteins Status: Acute Assessment and Plan: Likely secondary to tachycardia Type ii most likely (4) Transaminitis: Code(s): R74.01 - Elevation of levels of liver transaminase levels Status: Acute Assessment and Plan: Likely secondary to liver congestion. (5) Fall: Code(s): W19.XXXA - Unspecified fall, initial encounter Status: Acute Assessment and Plan: Only minor injuries Supportive care (6) Aortic aneurysm: Code(s): I71.9 - Aortic aneurysm of unspecified site, without rupture Status: Acute Assessment and Plan: Metoprol has been increased Follow up in the outpaient setting. Subjective Date/time seen: 10/15/20 15:07 States that she feels fine. Review of Systems Review of Systems: Narrative: no new issues overnight. Constitutional: Comments: no fevers, no rigors, no chills. Cardiovascular: Comments: no chest pain. Respiratory: Comments: no sob, no cough, no sputum production. Gastrointestinal: Comments: no n/v/abdominal pain. Musculoskeletal: Comments: no joint pain. Integumentary/Breasts: Comments: no rashes. Neurologic: Comments: no sensory motor deficit. Exam Narrative: Exam Narrative: Lying in bed. Const: General: comfortable, no acute distress, alert, awake and Physically active Nutritional Appearance: average body habitus Orientation/consciousness: patient oriented x3 HENMT: Head: normal to inspection and normocephalic Ears: hearing grossly normal bilaterally General nose exam: Normal external nose present Face and sinus: normal facial exam Eyes: Pupils: Equal, round and reactive pupils present EOM: EOMs intact bilaterally Neck: Neck: no lymphadenopathy, supple and no JVD Resp: Effort & Inspection: normal respiratory effort and able to speak in complete sentences Auscultation: clear to auscultation bilaterally Cardio: Jugular venous distension: no JVD Rate: regular rate Rhythm: regular rhythm GI: Inspection: normal to inspection GI Palp: Yes Soft to palpation and Yes No hepatosplenomegaly present Skin: Rashes: no rashes Wounds: no wounds Neuro: General: patient oriented x3 and CN's II-XI intact bilaterally Cranial nerves: Yes CN's II-XII intact bilaterally, Yes Equal, round and reactive pupils present and Yes Bilaterally intact EOM present Speech: normal speech Motor exam (neuro): 5/5 motor strength present throughout Extrem: General: no pedal edema Objective Data Vital Signs Vital Signs: Vital Signs - 24 hr 10/14/20 16:00 10/14/20 16:14 10/14/20 18:00 Temperature 97.7 F Pulse Rate 60 66 75 Respiratory Rate 16 Blood Pressure 136/92 H Pulse Oximetry 97 10/14/20 19:52 10/14/20 20:00 10/14/20 20:20 Temperature 97.8 F Pulse Rate 68 72 69 Respiratory Rate 18 Blood Pressure 133/87 Pulse Oximetry 97 10/14/20 21:56 10/14/20 23:40 10/15/20 00:00 Temperature 97.7 F Pulse Rate 66 67 60 Respiratory Rate 16 Blood Pressure 135/88 Pulse Oximetry 96 10/15/20 03:00 10/15/20 04:00 10/15/20 06:00 Temperature 97.5 F L Pulse Rate 62 65 60 Respiratory Rate 18 Blood Pressure 110/75 Pulse Oximetry 92 10/15/20 08:00 10/15/20 08:07 10/15/20 09:32 Temperature 97.3 F L Pulse Rate 69 72 85 Respiratory Rate 20 Blood Pressure 130/88 Pulse Oximetry 99 10/15/20 10:00 10/15/20 12:00 10/15/20
[2020-10-15] MEDS: RIVAROXABAN 20 MG TABLET PO (16:55)
[2020-10-16] VITALS (10 sets, daily range): BP systolic 112–130; BP diastolic 72–90; PULSE 63–83; RESP 20; TEMP 36.3; O2SAT 97–98
--- NOTE | 2020-10-16 06:00 | ECG_ITS ---
Measurements Intervals [place] Rate: 76 P: 36 MD: 186 QRS: -1 QRSD: 83 T: 66 QT: 421 QTc: 475 Interpretive Statements SINUS RHYTHM ATRIAL PREMATURE COMPLEX LEFT VENTRICULAR HYPERTROPHY WITH ST-T CHANGE BASELINE ARTIFACT- I, III, AVL, AVF, V1-V2, V5-V6 BORDERLINE ECG Electronically Signed On 10-17-2020 15:22:37 CDT by Black Zeng D.O.
[2020-10-16] MEDS: LEVOTHYROXINE SODIUM 75 MCG TABLET PO (06:13)
[2020-10-16] MEDS: METOPROLOL TARTRATE 25 MG TABLET 75 MG PO (07:58)
[2020-10-16] MEDS: ATORVASTATIN 20 MG TABLET PO (07:58)
[2020-10-16] MEDS: lisinopriL 20 MG TABLET PO (07:59)
[2020-10-16] MEDS: ASPIRIN 81 MG CHEWABLE TABLET PO (07:59)
[2020-10-16] MEDS: METOPROLOL TARTRATE 25 MG TABLET PO (09:35)
--- NOTE | 2020-10-16 09:53 | PM.PNCARD ---
Progress Note: A&P Assessment and Plan (1) SVT (supraventricular tachycardia): Code(s): I47.1 - Supraventricular tachycardia Status: Acute Assessment and Plan: This appears to be a new diagnosis. Rapid narrow complex regular arrhythmia consistent with SVT, possible AVNRT, less likely atrial flutter with 1:1 conduction. Patient highly symptomatic and did not tolerate well. -No recurrence of this new arrhythmia. However, subsequent discontinuation of sotalol may increase recurrence risk. ----Likely outpatient electrophysiology referral and consideration for ablation. Discussed with Dr. Christine who agrees. -Follow-up in 1 week in the office. Patient to remain off work until seen in the office. -notify the office immediately with recurrence and or new concerns. Patient verbalized understanding and agreed with plan of care. Avoid any and all strenuous activity. -Stable for discharge home today per hospitalist service. (2) Paroxysmal atrial fibrillation: Code(s): I48.0 - Paroxysmal atrial fibrillation Status: Acute Assessment and Plan: Longstanding history none this hospitalization today. Continue medical therapy and systemic anticoagulation. -continue Xarelto 20 mg daily. -metoprolol tartrate 100 mg twice daily. (3) Encounter for monitoring sotalol therapy: Code(s): Z51.81 - Encounter for therapeutic drug level monitoring; Z79.899 - Other intermediate teacher (current) drug therapy Status: Acute Assessment and Plan: Sotalol discontinued secondary to QT prolongation at greater than 500 milliseconds. Unable to consider alternative antiarrhythmic therapy until further washout sotalol. This will need to be considered as an outpatient basis. Discussed with Dr. Christine who agrees. -do not resume sotalol at discharge. (4) QT prolongation: Code(s): R94.31 - Abnormal electrocardiogram [ECG] [EKG] Status: Acute Assessment and Plan: QT prolonged 505 milliseconds 10/15/2020 by EKG improved to 475 once again this morning after discontinuation of sotalol. Unfortunately risk for continuing sotalol likely outweighs benefit. -as above, do not resume sotalol discharge. (5) Elevated troponin: Code(s): R77.8 - Other specified abnormalities of plasma proteins Status: Acute Assessment and Plan: Most likely secondary to very rapid SVT. Patient has a history of elevated troponin with negative ischemic evaluation. Records indicate normal coronary anatomy left heart catheterization 2008. Follow-up with us as an outpatient. Will discuss ischemic evaluation at that time. EKG without acute ischemic changes. 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 Expressed my concerns given these findings and the fact that she left against medical advice from the emergency department. We discussed the risks on anticoagulation and or propagation of the dissections with potential catastrophic complications in this regard. Defer to primary service. (7) Aortic aneurysm: Code(s): I71.9 - Aortic aneurysm of unspecified site, without rupture Status: Acute Assessment and Plan: Moderate in size 4.7 cm stable. Subjective Date/time seen: Date of service: 10/16/20 09:53 Follow-up for SVT, paroxysmal atrial fibrillation, QT prolongation Stable overnight had transient AFib with RVR early this morning for several minutes. Asymptomatic. Patient denies chest pain, shortness of breath or dizziness. Sotalol discontinued yesterday. No fevers, chills, palpitations. No bleeding. Review of Systems Review of Systems: All systems reviewed & are unremarkable except as noted in HPI and below C
--- NOTE | 2020-10-16 11:54 | PM.DS ---
DS: Admitting Diagnosis Admitting Diagnosis Admitting Diagnosis: palpitation DS: Discharge Diagnosis Discharge Diagnosis (1) QT prolongation: Code(s): R94.31 - Abnormal electrocardiogram [ECG] [EKG] Status: Acute Assessment and Plan: repeat ECG showed resolution of QT prolonging (2) Encounter for monitoring sotalol therapy: Code(s): Z51.81 - Encounter for therapeutic drug level monitoring; Z79.899 - Other snf (current) drug therapy Status: Acute Assessment and Plan: sotalol was discontinued (3) Paroxysmal atrial fibrillation: Code(s): I48.0 - Paroxysmal atrial fibrillation Status: Acute Assessment and Plan: converted to sinus rhythm (4) SVT (supraventricular tachycardia): Code(s): I47.1 - Supraventricular tachycardia Status: Acute Assessment and Plan: resolved (5) Aneurysm, cerebral: Code(s): I67.1 - Cerebral aneurysm, nonruptured Status: Acute Assessment and Plan: will follow-up in the outpatient setting (6) Atrial fibrillation with rapid ventricular response: Code(s): I48.91 - Unspecified atrial fibrillation Status: Resolved Assessment and Plan: patient maintained sinus rhythm follow-up in the outpatient setting on metoprolol and rivaroxaban (7) Essential hypertension: Code(s): I10 - Essential (primary) hypertension Status: Chronic Assessment and Plan: continue home meds continue to monitor (8) Coronary artery disease involving [place] coronary artery of [place] heart without angina pectoris: Code(s): I25.10 - Atherosclerotic heart disease of [place] coronary artery without angina pectoris Status: Chronic Assessment and Plan: no history of stents DS: Summary Hospital Course Reason for hospitalization: palpitation Hospital Course: This is a pleasant 69 year old female with past medical history of paroxysmal atrial fibrillation on chronic anticoagulation with Xarelto, hypothyroidism, HTN, and hyperlipidemia who presented to emergency room with a complaint of heart palpitations. She states that this started at around dinner time. She had no chest pain but weird feeling due to her rapid heart rate. EMS found the patient with a heart rate in the 200s on arrival. In ED managed to slow her heart rate down and observe a rhythm of atrial fibrillation with 12 mg of Adenosine given IV push. The patient was started on a Cardizem IV drip for rate control in the ER. Routine labs were obtained which showed a mildly elevated troponin as well as elevated liver enzymes. The patient has been compliant with her medications. She has history of myocardial infarction but denied having any stents. On further questioning she denied any fever, chills, headache, nausea, coughing, shortness of breath, abdominal pain, vomiting, diarrhea or rectal bleeding. the patient had been in her usual state of health up to the point that set up for a mechanical fall that she suffered while in the parking lot she fell face forward with trauma to her forehead. patient was admitted to IMU on Cardizem drip and sotalol therapy was started, after cardiology consult was obtained. patient converted to sinus rhythm however she had QT prolonging and she was kept overnight for monitoring. no new issues where present overnight patient remained in sinus rhythm no events were registered on telemonitoring she was discharged home in a stable medical condition with follow-up in the outpatient setting with Cardiology. consults obtained : Cardiology Procedures: None Status at Discharge Cognitive/behavioral status at discharge: AOx3 Functional status at discharge: independent ambulation Time Spent with Patient Time attestation: Total time spent providing and/or coordinating discharge services: Time spent: Greater than 30 minutes Exam Const: General: comfortable, no acute distress,
== END 2020-10-16 14:26 | disposition home or self-care (01) | DRG 310 ==
LOC: ANHED 02:05 → ANHIMU 05:38
PROVIDERS: Admitting Provider Family Medicine; Emergency Provider Emergency Medicine; PCP Family Medicine; Visit Provider Internal Medicine
DX: I48.91 Unspecified atrial fibrillation (principal); E03.9 Hypothyroidism, unspecified; E78.5 Hyperlipidemia, unspecified; I25.10 Atherosclerotic heart disease of native coronary artery without angina pectoris; I67.1 Cerebral aneurysm, nonruptured; I47.1 Supraventricular tachycardia; Z91.81 History of falling
CPT/HCPCS: 36415; 51701; 71045; 80053; 80076; 81001; 83036; 83735; 83880; 84443; 84484; 85025; 85610; 85730; 87086; 93005; 93306; 96365; 99285; A9270

== ENCOUNTER 2020-10-20 01:54 | Emergency (ER) | payer MEDICARE, SELFPAY ==
[2020-10-20] VITALS (7 sets, daily range): BP systolic 89–110; BP diastolic 66–78; PULSE 66–183; RESP 16–22; TEMP 36.5; O2SAT 93–100
--- NOTE | ~2020-10-20 | XR_ITS ---
EXAMINATION: XR chest 1V portable DATE: 10/20/2020 02:28 INDICATION: Chest pain. TECHNIQUE: A single frontal view of the chest was obtained. COMPARISON: Chest single view 10/14/2020, chest CT 06/09/2020 FINDINGS: There is a diffuse interstitial pattern in the lungs, consistent with mild pulmonary edema. No pleural effusion or pneumothorax. The heart size is normal. IMPRESSION: 1. Mild pulmonary edema. Reviewed, dictated and finalized at location A. IMPRESSION: 1. Mild pulmonary edema.
[2020-10-20] MEDS: SODIUM CHLORIDE 0.9% IV 1,000 ML 999 ML ×2 (02:00→02:49)
--- NOTE | 2020-10-20 02:04 | ECG_ITS ---
Measurements Intervals [place] Rate: 166 P: [place]: 0 QRS: 66 QRSD: 85 T: 116 QT: 269 QTc: 447 Interpretive Statements SUPRAVENTRICULAR TACHYCARDIA ST-T WAVE ABNORMALITY IN INF/LAT LEADS- CONSIDER ISCHEMIA BASELINE WANDER- II, III, AVR, AVL, AVF, V2 ABNORMAL ECG Electronically Signed On 10-20-2020 7:10:39 CDT by Black Zeng D.O.
--- NOTE | 2020-10-20 02:05 | PC.NURSE ---
Pt presents to ED with complaints of chest pain and chest tightness that onset 2200. Pt rates pain 2200. Pt noted to be alert and oriented x4 and conversing with staff. Pacer pads attached and pt on monitoring and evaluation advisor. EDMD presented to bedside.
[2020-10-20] MEDS: dilTIAZem HCl INJ 25 MG/5 ML VIAL 20 MG IV PUSH (02:08)
--- NOTE | 2020-10-20 02:08 | PC.NURSE ---
Pt is diaphoretic but remains alert and oriented and conversing with staff.
--- NOTE | 2020-10-20 02:13 | PC.NURSE ---
Pt resting on cart in its lowest position with call button and personal items within reach. Pt remains alert and oriented x4 and breathing is even and unlabored at this time. Pt states whatever he gave me, I feel so much better . HR is now 75 with atrial fibrillation and bigeminy. Pt now rates pain at a zero.
[2020-10-20 02:15] LABS: Basophils Absolute Auto 0.1 K/mm3 (0.0-0.1); Basophils Percent Auto 0.5 % (0.2-1.2); Eosinophils Absolute Auto 0.2 K/mm3 (0-0.3); Eosinophils Percent Auto 1.8 % (0-4.4); Hematocrit 45.1 % (37.0-47.0); Hemoglobin 14.8 g/dL (12.0-15.0); Immature Granulocyte Absolute 0.03 K/mm3 (0.00-0.031); Immature Granulocyte Percent A 0.3 % (0-0.5); Lymphocytes Absolute Auto 3.77 K/mm3 (0.9-3.2); Lymphocytes Percent Auto 39.4 % (18.3-44.2); Mean Corpuscular HGB Conc 32.8 g/dl (32-36); Mean Corpuscular Hemoglobin 30.5 pg (26-34); Monocytes Absolute Auto 0.6 K/mm3 (0.1-0.6); Monocytes Percent Auto 6.6 % (2.6-8.5); Neutrophils Absolute Auto 4.9 K/mm3 (1.3-6.7); Neutrophils Percent Auto 51.4 % (45.5-73.1); Platelet Count Result 211 k/mm3 (150-375); Red Blood Count 4.85 M/mm3 (4.2-5.4); Red Cell Distribution Width 13.6 % (11.5-14.5); White Blood Count 9.6 K/mm3 (4.5-10.0)
--- NOTE | 2020-10-20 02:17 | PC.NURSE ---
Pt provided 20ml bolus of cardizem and heart rate improved from 187 and is now 75. Hypotension noted 84/65 and pt placed in trendelenburg position and tolerating well with BP 93/66. pt remains alert and oriented x4.
[2020-10-20 02:29] LABS: INR 1.9; Partial Thromboplastin Time 35.1 SECONDS (22.3-36.8); Prothrombin Time 22.7 Seconds (11.1-14.7)
[2020-10-20 02:49] LABS: Alanine Aminotransferase 115 U/L (4-35); Albumin Level 3.4 g/dL (3.5-5.1); Alkaline Phosphatase 79 U/L (38-126); Anion Gap 4 mmol/L (8-16); Aspartate Amino Transferase 162 U/L (14-36); Bilirubin,Total 0.3 mg/dL (0.2-1.3); Blood Urea Nitrogen 21 mg/dL (7-17); Calcium 8.8 mg/dL (8.4-10.2); Carbon Dioxide 24 mmol/L (22-30); Chloride 110 mmol/L (98-107); Estimated Glomerular Filt Rate > 60; Glucose 207 mg/dL (65-105); Lipase 164 U/L (23-300); Potassium 3.2 mmol/L (3.4-5.0); Sodium 138 mmol/L (137-145)
--- NOTE | 2020-10-20 02:49 | ED.GENADULT ---
HPI - General Adult General Chief complaint: Chest Pain Stated complaint: svt with chest tightness Time Seen by Provider: 10/20/20 02:04 History of Present Illness HPI narrative: Patient is a 69-year-old female presents to emergency department with chief complaint of palpitations and chest discomfort. Patient reports she has history of A. fib with RVR and was recently admitted to the hospital after she had had an episode of A. fib requiring a Cardizem bolus and Cardizem drip the patient states this evening she started feeling as though her heart was racing and had tightness in her chest. Patient states it felt exactly like whenever she had A. fib before in the past. Related Data Home Medications Medication Instructions Recorded Confirmed rivaroxaban 20 mg tablet 20 mg PO DAILY 03/10/20 10/14/20 lisinopril 10 mg tablet 20 mg PO DAILY tablet 08/31/20 10/14/20 alendronate 70 mg PO WEEKLY 10/14/20 10/14/20 atorvastatin 20 mg PO DAILY 10/14/20 10/14/20 levothyroxine 75 mcg PO DAILY 10/14/20 10/14/20 Allergies Allergy/AdvReac Type Severity Reaction Status Date / Time No Known Allergies Allergy Verified 09/29/20 19:44 Review of Systems Review of Systems: Narrative: A 10 system review of systems was completed on the patient and is negative except for what is stated in the HPI. Nursing and ancillary documentation was reviewed. [facility] Past Medical History Medical History Age-related osteoporosis without current pathological fracture Atrial fibrillation, chronic Breast cancer screening Coronary artery disease involving [place] coronary artery of [place] heart without angina pectoris Essential hypertension Hyperlipidemia, unspecified Hypothyroidism, unspecified Family History Family History Sibling Family history of malignant neoplasm of male breast, Onset Age: 30 Other Family history of cardiovascular disease Family history of malignant neoplasm of breast Hypertension Social History Social History Smoking status: Never smoker Second hand tobacco smoke exposure: No Alcohol intake: never Substance use: never Gender identity (if verbalized by the patient): Female Spiritual care concerns: Yes ([facility]) Exam Narrative: Exam Narrative: GENERAL: Well-appearing, well-nourished, and in no acute distress. HEAD: Normocephalic, atraumatic. EYES: PERRLA and EOMI. ENT: Nares clear, no rhinorrhea or epistaxis. Mucous membranes moist. NECK: Supple. CHEST: Clear to auscultation. No respiratory distress. HEART: Regular rate and rhythm. No murmur heard. Normal peripheral pulses. ABDOMEN: Soft, nontender, nondistended, normal active bowel sounds. EXTREMITIES: Normal range of motion. No edema. SKIN: Warm, dry, no rash. NEURO: No focal deficits. Alert and oriented x3. PSYCH: Normal mood and affect. Course Course Emergency Course: Patient was treated by EMS with adenosine without resolution patient was given a bolus of Cardizem in the emergency department and had resolution in her narrow complex tachycardia. The patient is currently asymptomatic the case was discussed with Dr. Lorenzo who recommended that the patient follow-up as an outpatient with cardiology the case was discussed with cardiology they will be happy to follow the patient up as an outpatient Vital Signs Vital signs: Vital Signs Pulse Oximetry 97 10/20/20 02:00 Pulse Rate 68 10/20/20 03:27 Respiratory Rate 22 H 10/20/20 03:27 Blood Pressure 110/78 10/20/20 03:27 Pulse Oximetry 97 10/20/20 03:27 Medical Decision Making Vital Signs Vital Signs: Vital Signs Pulse Oximetry 97 10/20/20 02:00 Pulse Rate 68 10/20/20 03:27 Respiratory Rate 22 H 10/20/20 03:27 Blood Pressure 110/78 10/20/20 03:27 Pulse Oximetry 97 03
[2020-10-20 03:01] LABS: Troponin I < 0.012 ng/mL (0.000-0.034)
--- NOTE | 2020-10-20 03:22 | PC.NURSE ---
Pt has been removed from [place] position and is tolerating well. Pt remains alert and oriented x4. Pt has been assisted on and off of bed [place]. No complaints or concerns voiced at this time. Pt advise to press call button for assistance.
--- NOTE | 2020-10-20 04:57 | PC.NURSE ---
Pt resting on cart in its lowest position with call button and personal items within reach. Pt noted to have incontinent episode of urine. Pt lolly area cleansed and linens changed. Pt has no complaints or concerns voiced and is aware of poc. Pt resting comfortably with stable vitals and is in no obvious distress at this time. Pt advised to press call button for assistance.
--- NOTE | 2020-10-20 06:32 | PC.NURSE ---
Pt resting on cart in its lowest position with call button and personal items within reach. Pt states she will have a friend pick her up in approx one hour. pt resting on cart and in no obvious distress with call button and personal items within reach. Advised to press call button for assistance.
--- NOTE | 2020-10-20 07:27 | PC.NURSE ---
Pt dc home with friend alert, stable and in no obvious distress. Pt left ER via wheelchair.
== END 2020-10-20 07:27 | disposition home or self-care (01) ==
PROVIDERS: Emergency Provider Emergency Medicine; PCP Family Medicine
DX: I47.1 Supraventricular tachycardia (principal); I48.20 Chronic atrial fibrillation, unspecified; I10 Essential (primary) hypertension; I25.10 Atherosclerotic heart disease of native coronary artery without angina pectoris; E03.9 Hypothyroidism, unspecified; M81.0 Age-related osteoporosis without current pathological fracture; Z79.01 Long term (current) use of anticoagulants; R94.31 Abnormal electrocardiogram [ECG] [EKG]
CPT/HCPCS: 36415; 71045; 80053; 83690; 84484; 85025; 85610; 85730; 93005; 96361; 96365; 99284; J7030

== ENCOUNTER 2020-10-29 20:54 | Observation (INO) | payer MEDICARE, SELFPAY ==
[2020-10-29] VITALS (12 sets, daily range): BP systolic 88–140; BP diastolic 64–91; PULSE 65–188; RESP 18–23; TEMP 36.1–36.4; O2SAT 95–98; BMI 28.2
--- NOTE | ~2020-10-29 | XR_ITS ---
EXAMINATION: XR chest 1V portable EXAM DATE: 10/29/2020 21:16 INDICATION: Rapid atrial fibrillation, SVT, chest tightness. History of coronary artery disease and h ypertension. TECHNIQUE: Portable AP frontal chest x-ray was obtained. Comparison is made to prior examination from 10/20/2020. FINDINGS: The lungs are hyperinflated which can be seen with chronic obstructive pulmonary disease (a clinical diagnosis of functional impairment), but is not diagnostic of it. There is tortuosity of th e aorta. The cardiomediastinal silhouette is prominent but magnified on this AP technique. No conflue nt consolidation, pneumothorax or pleural effusion suspected. There are bony degenerative changes. IMPRESSION: No acute cardiopulmonary findings. Hyperinflation. Reviewed, dictated and finalized at location A.
--- NOTE | 2020-10-29 20:59 | ECG_ITS ---
Measurements Intervals [place] Rate: 181 P: [place]: 0 QRS: 16 QRSD: 98 T: 198 QT: 247 QTc: 429 Interpretive Statements SUPRAVENTRICULAR TACHYCARDIA VENTRICULAR PREMATURE COMPLEX ST-T WAVE ABNORMALITY IN DIFFUSE LEADS- CONSIDER ISCHEMIA OR RATE RELATED ABNORMAL ECG Electronically Signed On 11-03-2020 13:23:59 CDT by Black Zeng D.O.
[2020-10-29] MEDS: dilTIAZem HCl INJ 25 MG/5 ML VIAL 10 MG IV PUSH ×2 (21:09→21:56)
[2020-10-29 21:16] LABS: Basophils Percent Auto 0.5 % (0.2-1.2); Eosinophils Absolute Auto 0.1 K/mm3 (0-0.3); Eosinophils Percent Auto 1.4 % (0-4.4); Hematocrit 41.1 % (37.0-47.0); Hemoglobin 13.6 g/dL (12.0-15.0); Immature Granulocyte Absolute 0.03 K/mm3 (0.00-0.031); Immature Granulocyte Percent A 0.4 % (0-0.5); Lymphocytes Absolute Auto 2.32 K/mm3 (0.9-3.2); Lymphocytes Percent Auto 27.3 % (18.3-44.2); Mean Corpuscular HGB Conc 33.1 g/dl (32-36); Mean Corpuscular Hemoglobin 30.4 pg (26-34); Mean Corpuscular Volume 91.7 fl (80-100); Mean Platelet Volume 10.7 fl (7.4-10.4); Monocytes Absolute Auto 0.8 K/mm3 (0.1-0.6); Monocytes Percent Auto 9.5 % (2.6-8.5); Neutrophils Absolute Auto 5.2 K/mm3 (1.3-6.7); Neutrophils Percent Auto 60.9 % (45.5-73.1); Platelet Count Result 180 k/mm3 (150-375); Red Blood Count 4.48 M/mm3 (4.2-5.4); Red Cell Distribution Width 13.5 % (11.5-14.5); White Blood Count 8.5 K/mm3 (4.5-10.0)
--- NOTE | 2020-10-29 21:16 | ED.CHESTPAIN ---
HPI - Chest Pain General Chief Complaint: Arrhythmia/Palpitations Stated Complaint: CP/ RAPID HR Time Seen by Provider: 10/29/20 21:00 Source: patient, EMS and RN notes reviewed Mode of arrival: EMS Limitations: no limitations History of Present Illness HPI narrative: Patient is 69 years old white female presented to the ED by ambulance with chest pain, started 1 hour prior to arrival to the emergency room. threat monitoring analyst showed tachycardia, patient received adenosine twice without any improvement. On arrival to the emergency room patient EKG showing A. fib with RVR. Patient denies any fever, chills, nausea, vomiting, shortness of breath, lightheadedness, back pain or headache patient on metoprolol tartrate 100 mg twice daily and Xarelto. Related Data Home Medications Medication Instructions Recorded Confirmed rivaroxaban 20 mg tablet 20 mg PO DAILY 03/10/20 10/14/20 lisinopril 10 mg tablet 20 mg PO DAILY tablet 08/31/20 10/14/20 alendronate 70 mg PO WEEKLY 10/14/20 10/14/20 atorvastatin 20 mg PO DAILY 10/14/20 10/14/20 levothyroxine 75 mcg PO DAILY 10/14/20 10/14/20 Allergies Allergy/AdvReac Type Severity Reaction Status Date / Time No Known Allergies Allergy Verified 09/29/20 19:44 Review of Systems Review of Systems: Narrative: CONSTITUTIONAL: Denies fever, chills, or sweats. EYES: Denies visual changes, redness, or discharge. ENT: Denies rhinorrhea, congestion, sore throat, or otalgia. CARDIOVASCULAR: Denies chest pain, palpitations, or edema. RESPIRATORY: Denies cough or dyspnea. GASTROINTESTINAL: Denies abdominal pain, nausea, vomiting, or diarrhea. GENITOURINARY: Denies dysuria or hematuria. SKIN: Denies rash or itching. MUSCULOSKELETAL: Denies back pain, joint pain, or myalgia. NEUROLOGIC: Denies headache, numbness, or weakness. PSYCHIATRIC: Denies anxiety or depression. [facility] Past Medical History Medical History Age-related osteoporosis without current pathological fracture Atrial fibrillation, chronic Breast cancer screening Coronary artery disease involving [place] coronary artery of [place] heart without angina pectoris Essential hypertension Hyperlipidemia, unspecified Hypothyroidism, unspecified Family History Family History Sibling Family history of malignant neoplasm of male breast, Onset Age: 30 Other Family history of cardiovascular disease Family history of malignant neoplasm of breast Hypertension Social History Social History Smoking status: Never smoker Second hand tobacco smoke exposure: No Alcohol intake: never Substance use: never Gender identity (if verbalized by the patient): Female Spiritual care concerns: Yes ([facility]) Exam Narrative: Exam Narrative: General appearance: Well-developed, well-nourished Skin: Normal color Head: Normocephalic, nontraumatic Eyes: Clear conjunctiva ENT: Oropharynx normal, ears normal, nose normal Neck: Supple, nontender Chest and respiratory: Airway patent, no respiratory distress, no accessory muscle use Heart: Irregular irregularity, tachycardia Abdomen: Soft, nontender, no organomegaly, quiet bowel sounds Vascular: Normal peripheral pulses, normal capillary refill. Musculoskeletal: Normal range of motion, nontender back Neurologic: Alert and oriented ?3, [employer] is normal as tested, no gross motor deficit Course Course Emergency Course: Improving Vital Signs Vital signs: Vital Signs Temperature 36.4 C L 10/29/20 21:01 Pulse Rate 188 H 10/29/20 21:01 Respiratory Rate 18
[2020-10-29 21:24] LABS: INR 2.2; Prothrombin Time 25.2 Seconds (11.1-14.7)
[2020-10-29 21:27] LABS: Alanine Aminotransferase 20 U/L (4-35); Albumin Level 3.9 g/dL (3.5-5.1); Alkaline Phosphatase 63 U/L (38-126); Anion Gap 3 mmol/L (8-16); Aspartate Amino Transferase 24 U/L (14-36); Bilirubin,Total 0.3 mg/dL (0.2-1.3); Blood Urea Nitrogen 15 mg/dL (7-17); Carbon Dioxide 28 mmol/L (22-30); Chloride 108 mmol/L (98-107); Estimated CRCL calculation 59 ml/min; Estimated Glomerular Filt Rate > 60; Glucose 146 mg/dL (65-105); Potassium 3.6 mmol/L (3.4-5.0); Sodium 139 mmol/L (137-145)
[2020-10-29 21:52] LABS: NT Pro B Type Natriuretic Pept 631 PG/ML (5-100); Troponin I 0.047 ng/mL (0.000-0.034)
--- NOTE | 2020-10-29 22:25 | ECG_ITS ---
Measurements Intervals [place] Rate: 93 P: 91 [place]: 228 QRS: 6 QRSD: 91 T: 61 QT: 370 QTc: 462 Interpretive Statements SINUS RHYTHM WITH FIRST DEGREE AV BLOCK LOW QRS VOLTAGE IN PRECORDIAL LEADS BORDERLINE ST-T WAVE ABNORMALITY- HIGH LATERAL LEADS BASELINE ARTIFACT- I, II, III, AVR, AVL, AVF ABNORMAL ECG Electronically Signed On 10-30-2020 7:03:41 CDT by Black Zeng D.O.
--- NOTE | 2020-10-29 22:25 | ECG_ITS ---
Measurements Intervals [place] Rate: 91 P: 90 [place]: 243 QRS: 9 QRSD: 85 T: 69 QT: 377 QTc: 465 Interpretive Statements SINUS RHYTHM WITH FIRST DEGREE AV BLOCK BORDERLINE ST ABNORMALITY- LAT/HIGH LAT LEADS BASELINE ARTIFACT- I, II, III, AVR, AVL,A VF ABNORMAL ECG Electronically Signed On 10-30-2020 7:02:38 CDT by Black Zeng D.O.
[2020-10-29] MEDS: SODIUM CHLORIDE 0.9% IV 1,000 ML 999 ML IV CONT (22:39)
--- NOTE | 2020-10-29 22:40 | PM.IMHP ---
H&P: HPI History of Present Illness Date/Time: 10/29/20 22:40 this is a 69-year-old female patient who has a history of SVT, atrial fibrillation, versus atrial flutter. The patient had been on sotalol at 1 point but developed a prolonged QT wave and therefore was taken off of her sotalol and her metoprolol had been increased. The patient stated that her heart rate usually under control. However tonight she took a shower and 10 minutes later she laid on the bed and felt like she was having palpitations. She had no nausea vomiting. No fever chills. This started 1 hour prior to the emergency room. The patient was given adenosine 6 mg and 12 mg in the ambulance. When the patient arrived to the emergency room according to the ED her EKG was showing AFib with RVR. The patient was placed on a Cardizem drip after she received 2 boluses Cardizem. However since I have was in the room the patient was showing sinus rhythm with frequent PVCs. The patient was in his sinus rhythm until she got to the bedside commode and that is when she went back into the AFib. At this current time a Cardizem drip is off due to low blood pressure and she was given an IV bolus. Patient has no complaints of shortness of breath or chest pain at this time. The patient stated that she has been compliant with her medications. The patient stated that she has 2 aneurysms and she recently had an angiogram to check on her cerebral aneurysm. The only complaint that the patient has at this time is back pain. First troponin was mildly 0.047. BNP 631. 1st degree AV block. With frequent PVCs. Heart rates 93. According to cardiology note from her last admission on 10/16/2020 Dr. Cheek it noted that the patient likely needs outpatient electrophysiology referral and consideration for ablation. This was discussed with Dr. merino at the time who agreed. She has a follow-up and 1 week in the office however she has not been back to the cardiology office since then. Patient is being admitted to observation the date of service of 10/21/2020 Chief Complaint: Palpitations Review of Systems Review of Systems: All systems reviewed & are unremarkable except as noted in HPI and below Constitutional: Constitutional: Reports as per HPI and Reports no additional constitutional complaints Eyes: Eyes: Reports as per HPI and Reports no additional eye complaints ENT: Reports system reviewed and no additional complaints, except as documented and Reports Normal hearing present Cardiovascular: Cardiovascular: Reports no additional cardiovascular complaints Respiratory: Respiratory: Reports no additional respiratory complaints and Reports no additional respiratory complaints Gastrointestinal: Gastrointestinal: Reports as per HPI and Reports no additional gastrointestinal complaints Musculoskeletal: Musculoskeletal: Reports no additional musculoskeletal complaints Integumentary/Breasts: Skin/Breast: Reports system reviewed and no additional complaints, except as docu and Reports as per HPI Neurologic: Reports system reviewed and no additional complaints, except as documented, Reports as per HPI and Reports Normal hearing present Psychiatric: Psychiatric: Reports no additional psychiatric complaints and Reports as per HPI Endocrine: Endocrine: Reports no additional endocrine complaints Hematologic/Lymphatic: Hematologic/Lymphatic: Reports no additional hematologic/lymphatic complaints Allergic/Immunologic: Allergic/Immunologic: Reports no additional allergic/immunologic complaints [facility] Past Medical History Medical History (Updated 10/29/20 @ 22:54 by Flor Tadeo NP) Age-related osteoporosis without current pathological fracture Atrial fibrillation, chronic Breast cancer screening Coronary aneurysm Follows with [facility] Coronary artery disease involving [place] coronary artery of [place] heart without angina pectoris Essential hypertension Hyperlipidemia, unspecified Hypothyroidism, u
--- NOTE | 2020-10-29 23:35 | PC.NURSE ---
Report given by Abel in the ED at 1742. Report given by telephone.
--- NOTE | 2020-10-29 23:53 | ADMGEN ---
This patient, Jane Pereyra, was admitted to IMU Room 200-01 at 2345 from the Emergency Department. Patient/family oriented to hospital policies and general routines including ID bracelet, bed and alarms, visiting hours, pain management, procedures, bathroom and other care routines, personal items, smoking policy, room service/diet, and visiting hours. Information on how to activate the Rapid Response Team has been discussed. Patient/Family are encouraged to report perceived risks to care and to ask questions if they do not understand what they are told or what they should do.
[2020-10-30] VITALS (15 sets, daily range): BP systolic 123–146; BP diastolic 76–106; PULSE 61–103; RESP 16–20; TEMP 36.1–36.5; O2SAT 96–100
[2020-10-30 01:28] LABS: Troponin I 0.055 ng/mL (0.000-0.034)
[2020-10-30 04:01] LABS: Troponin I 0.068 ng/mL (0.000-0.034)
[2020-10-30 06:30] LABS: Anion Gap 5 mmol/L (8-16); Blood Urea Nitrogen 12 mg/dL (7-17); Calcium 8.3 mg/dL (8.4-10.2); Carbon Dioxide 25 mmol/L (22-30); Chloride 111 mmol/L (98-107); Estimated CRCL calculation 86 ml/min; Estimated Glomerular Filt Rate > 60; Glucose 99 mg/dL (65-105); Magnesium 1.9 mg/dL (1.6-2.3); Potassium 3.5 mmol/L (3.4-5.0); Sodium 141 mmol/L (137-145)
[2020-10-30 06:32] LABS: Basophils Percent Auto 0.3 % (0.2-1.2); Eosinophils Absolute Auto 0.1 K/mm3 (0-0.3); Eosinophils Percent Auto 1.4 % (0-4.4); Hematocrit 36.5 % (37.0-47.0); Hemoglobin 11.9 g/dL (12.0-15.0); Immature Granulocyte Absolute 0.02 K/mm3 (0.00-0.031); Immature Granulocyte Percent A 0.3 % (0-0.5); Lymphocytes Absolute Auto 2.08 K/mm3 (0.9-3.2); Lymphocytes Percent Auto 31.2 % (18.3-44.2); Mean Corpuscular HGB Conc 32.6 g/dl (32-36); Mean Corpuscular Hemoglobin 30.3 pg (26-34); Mean Corpuscular Volume 92.9 fl (80-100); Mean Platelet Volume 11.2 fl (7.4-10.4); Monocytes Absolute Auto 0.6 K/mm3 (0.1-0.6); Monocytes Percent Auto 8.9 % (2.6-8.5); Neutrophils Absolute Auto 3.9 K/mm3 (1.3-6.7); Neutrophils Percent Auto 57.9 % (45.5-73.1); Platelet Count Result 156 k/mm3 (150-375); Red Blood Count 3.93 M/mm3 (4.2-5.4); Red Cell Distribution Width 13.6 % (11.5-14.5); White Blood Count 6.7 K/mm3 (4.5-10.0)
--- NOTE | 2020-10-30 15:12 | PM.CNCAR ---
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 Her regimen of metoprolol is obviously not preventing recurrences of this this was discontinued and changed from sotalol to a couple of weeks ago because of long QT interval. The concept of an EP referral was discussed with the patient but no arrangements for this have been made. I am going to recommend continuing her Xarelto, I will reduce her metoprolol to 50 mg b.i.d. and start flecainide at a dosage of 100 mg q.12 hours in hopes of effectively treating this atrial flutter in this fashion. Certainly if we cannot find a medical regimen that provides a good response an EP referral will be in order. I have made clear to the patient and her family that [facility] does not have those facilities. I am not sure of the reason for concerned that this patient had a cerebral angiogram done last week at [place]. I will try to assemble some of that information when I am able to look in her electronic record. We will keep patient in the hospital at least about 48 hours to assess her response to initiation of flecainide. Carlitos Butler MD [facility] History of Present Illness History of Present Illness Consult date/time: 10/30/20 15:12 Reason For Visit: A. fib with RVR converted to normal sinus rhythm Narrative: This is a 69-year-old woman I am seeing at the request of the hospitalist for assistance with the evaluation and management of atrial tachyarrhythmias. The patient is unknown to me prior to this encounter and has a history of episodes of rapid tachycardia and palpitations associated with some sense of chest discomfort that began to happen earlier in October of this year. She was hospitalized within the last couple weeks for this and was seen by Dr. Edwards. The patient apparently had been taking sotalol for antiarrhythmic treatment with the diagnosis of paroxysmal atrial fibrillation. It was noted during the hospitalization that her QT interval was over 500 milliseconds and so sotalol was stopped and she was placed on standard metoprolol at a dosage of 100 mg b.i.d.. She also had been anticoagulated with Xarelto. The patient has a history of a normal coronary angiogram being done back in 2008 when some chest pain was being evaluated. Apparently she had a fall at home recently with some facial trauma that was being evaluated downtown at [place]. She says that after her most recent discharge from [facility] she was down at [place] as an outpatient on Friday of last week having a cerebral angiogram performed and she is post go back there next week to receive the results of that. In that whole background she came to the hospital again here last night with a rapid tachycardia and palpitations she was treated with intravenous adenosine and looks like was some intravenous diltiazem as well. Her heart rate has improved and now it looks like she is back in sinus rhythm with heart rates in the 70s. She is currently asymptomatic. The possibility of referring her to an general manager food for evaluation treatment of this were discussed during the last hospitalization no appointments for this have been arranged at the time of this dictation. The the EKGs during this admission in the last admission were reviewed by myself in detail. I believe the most likely atrial arrhythmia is 8 is atypical atrial flutter with rapid ventricular response. Review of Systems Constitutional: Constitutional: Reports no additional constitutional complaints Eyes: Eyes: Reports no additional eye complaints ENT: Reports system reviewed and no additional complaints, except as documented Cardiovascular: Cardiovascular: Reports as per HPI Respiratory: Respiratory: Reports as per HPI and Reports dyspnea Gastrointestinal: Gastrointestinal: Reports no additional gastrointestinal complaints Musculoskeletal: Musculoskelet
[2020-10-30] MEDS: POTASSIUM CHLORIDE 20 MEQ TABLET 40 MEQ PO (15:16)
--- NOTE | 2020-10-30 15:28 | PM.IMPN ---
Progress Note: A&P Assessment and Plan (1) Atrial fibrillation with rapid ventricular response: Code(s): I48.91 - Unspecified atrial fibrillation Status: Acute Assessment and Plan: Patient had been on a Cardizem drip. However her rate is now in the 80s to 90s. Her blood pressure was starting dropped to her drip was stopped. Cardiology has been consulted. The patient was seen by Cardiology earlier this month and she did not had the opportunity to follow-up outpatient isidro. However it was recommended that the patient remain off work until she was seen at the office. The patient was sent notify the office immediately for recurrence or do concerns. The patient has been taking medications on a regular basis. The patient had been on sotalol but then developed a prolonged QT. It was noted per Dr. 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 Likely outpatient electrophysiology referral consideration for ablation. This was discussed with Dr. merino who agreed with this. Patient had her metoprolol increased her last admission. Will continue with that if her blood pressure allows. The patient is on Xarelto. The patient was thought to be in SVT with narrow complex QRS with a heart rate in the 180s. The patient was given adenosine and route to the ER. 10/30/20 15:28 patient is a 69-year-old female with history of atrial fibrillation initially patient was treated with sotalol but it was discontinued because of prolonged QT interval, patient was switched over metoprolol however patient presented emergency depart with complaint palpitation and just not feeling very well, in emergency depart patient was found to after fibrillation with RVR and was given IV diltiazem which did improve her rate, today patient is seen by her Principal Cyber Engineer and started the patient metoprolol 50 mg b.i.d.and started flecainide at a dosage of 100 mg q.12 hours to bring the patient rate under control, and Xarelto for anticoagulation if this treatment does not improve her rate and symptoms patient will benefit consultation with EP, will continue to monitor and further recommendation to follow. (2) Aortic aneurysm: Code(s): I71.9 - Aortic aneurysm of unspecified site, without rupture Status: Acute Assessment and Plan: The patient is being followed outpatient. (3) QT prolongation: Code(s): R94.31 - Abnormal electrocardiogram [ECG] [EKG] Status: Acute Assessment and Plan: Patient who was taken off of sotalol. She is being followed by Cardiology. (4) Elevated troponin: Code(s): R77.8 - Other specified abnormalities of plasma proteins Status: Acute Assessment and Plan: Most likely related to her RVR. However will continue to trend. (5) Hypothyroidism, unspecified: Qualifiers: Hypothyroidism type: unspecified Qualified Code(s): E03.9 - Hypothyroidism, unspecified Code(s): E03.9 - Hypothyroidism, unspecified Status: Chronic Assessment and Plan: Check her thyroid level and continue levothyroxine (6) Essential hypertension: Code(s): I10 - Essential (primary) hypertension Status: Chronic Assessment and Plan: Going to hold the lisinopril for tonight because her blood pressure is soft. Please re-evaluate tomorrow. Subjective Date/time seen: 10/30/20 15:28 patient is a 69-year-old female with history of atrial fibrillation initially patient was treated with sotalol but it was discontinued because of prolonged QT interval, patient was switched over metoprolol however patient presented emergency depart with complaint palpitation and just not feeling very well, in emergency depart patient was found to after fibrillation with RVR and was given IV diltiazem which did improve her rate, today patient is seen by her Principal Cyber Engineer and started the patient metoprolol 50 mg b.i.d.and started flecainide at a dosage of 100 mg q.12 hours to
[2020-10-30] MEDS: RIVAROXABAN 20 MG TABLET PO (16:36)
[2020-10-30] MEDS: METOPROLOL TARTRATE 50 MG TAB PO (21:04)
[2020-10-30] MEDS: FLECAINIDE ACETATE 100 MG TABLET PO (21:04)
[2020-10-31] VITALS (20 sets, daily range): BP systolic 132–142; BP diastolic 64–105; PULSE 62–83; RESP 18–20; TEMP 35.7–36.7; O2SAT 96–100
[2020-10-31 05:00] LABS: Hematocrit 36.1 % (37.0-47.0); Hemoglobin 12.1 g/dL (12.0-15.0); Mean Corpuscular HGB Conc 33.5 g/dl (32-36); Mean Corpuscular Hemoglobin 30.9 pg (26-34); Mean Corpuscular Volume 92.1 fl (80-100); Mean Platelet Volume 10.7 fl (7.4-10.4); Platelet Count Result 147 k/mm3 (150-375); Red Blood Count 3.92 M/mm3 (4.2-5.4); Red Cell Distribution Width 13.7 % (11.5-14.5); White Blood Count 5.8 K/mm3 (4.5-10.0)
[2020-10-31 05:18] LABS: Anion Gap 1 mmol/L (8-16); Blood Urea Nitrogen 13 mg/dL (7-17); Calcium 8.6 mg/dL (8.4-10.2); Carbon Dioxide 31 mmol/L (22-30); Chloride 108 mmol/L (98-107); Estimated CRCL calculation 86 ml/min; Estimated Glomerular Filt Rate > 60; Glucose 89 mg/dL (65-105); Potassium 4.2 mmol/L (3.4-5.0); Sodium 140 mmol/L (137-145)
[2020-10-31] MEDS: METOPROLOL TARTRATE 50 MG TAB PO ×2 (08:37→20:31)
[2020-10-31] MEDS: FLECAINIDE ACETATE 100 MG TABLET PO ×2 (08:37→20:32)
--- NOTE | 2020-10-31 11:44 | PM.PNCARD ---
Progress Note: A&P Assessment and Plan (1) Atrial fibrillation with rapid ventricular response: Code(s): I48.91 - Unspecified atrial fibrillation Status: Acute Assessment and Plan: In sinus rhythm on flecainide and Xarelto for anticoagulation. EKG is ordered to evaluate QRS and QT intervals. Likely DC home tomorrow (2) SVT (supraventricular tachycardia): Code(s): I47.1 - Supraventricular tachycardia Status: Acute Assessment and Plan: Found sinus rhythm (3) Essential hypertension: Code(s): I10 - Essential (primary) hypertension Status: Chronic Assessment and Plan: At goal (4) Elevated troponin: Code(s): R77.8 - Other specified abnormalities of plasma proteins Status: Acute Assessment and Plan: Probably a type 2 infarction but given flecainide use, she will need an outpatient stress test even though she had no no obstructive coronary disease but this was over 10 years Subjective Date/time seen: 10/31/20 11:44 Interval history: 69-year-old admitted because of atrial tachyarrhythmia. Started on flecainide yesterday and is currently doing well. She also chest pain. Date of service 10/31/2020: She feels well today. She has no chest pain, shortness of breath, arrhythmia. No palpitations or syncope Review of Systems Constitutional: Constitutional: Reports no additional constitutional complaints Eyes: Eyes: Reports no additional eye complaints ENT: Reports system reviewed and no additional complaints, except as documented Cardiovascular: Cardiovascular: Reports as per HPI and Reports dyspnea Respiratory: Respiratory: Reports as per HPI and Reports dyspnea Gastrointestinal: Gastrointestinal: Reports no additional gastrointestinal complaints Musculoskeletal: Musculoskeletal: Reports no additional musculoskeletal complaints Integumentary/Breasts: Skin/Breast: Reports system reviewed and no additional complaints, except as docu Neurologic: Reports system reviewed and no additional complaints, except as documented Endocrine: Endocrine: Reports no additional endocrine complaints Hematologic/Lymphatic: Hematologic/Lymphatic: Reports no additional hematologic/lymphatic complaints Allergic/Immunologic: Allergic/Immunologic: Reports no additional allergic/immunologic complaints Exam Const: General: comfortable and no acute distress Other: Pleasant somewhat frail looking elderly lady visiting with her family in no distress of any kind currently HENMT: Mouth: Yes moist mucous membranes Eyes: Pupils: Equal, round and reactive pupils present Neck: Neck: supple and no JVD Thyroid: thyroid normal Other: Carotid upstrokes are intact there are no audible bruits Resp: Effort & Inspection: normal respiratory effort Auscultation: clear to auscultation bilaterally Cardio: Rate: regular rate Rhythm: regular rhythm Other: Very soft systolic murmur at the left precordial region no radiation no diastolic murmur GI: Auscultation: normal bowel sounds Skin: General skin exam: normal color Neuro: Cranial nerves: Yes Equal, round and reactive pupils present Cognition (Neuro): normal cognition Extrem: General: normal to inspection Objective Data Vital Signs Vital Signs: Vital Signs - 24 hr 10/30/20 11:53 10/30/20 12:00 10/30/20 14:00 Temperature 36.5 C Pulse Rate 70 79 80 Respiratory Rate 16 Blood Pressure 129/97 H Pulse Oximetry 99 10/30/20 16:00 10/30/20 18:00 10/30/20 20:00 Temperature 36.4 C L 36.5 C Pulse Rate 103 H 76 90 Respiratory Rate 16 20 Blood Pressure 123/90 131/106 H Pulse Oximetry 100 96 10/30/20 21:04 10/30/20 22:00 10/30/20 23:25 Temperature 36.4 C Pulse Rate 78 61 63 Respiratory Rate 18 Blood Pressure 130/76 Pulse Oximetry 96 10/31/20 00:00 10/31/20 02:00 10/31/20 04:00 Temperature 36.7 C Pulse Rate 65 69 78 Respiratory Rate 20 Blood Pressure 137/67 Pulse Oximetry 96 9
--- NOTE | 2020-10-31 14:55 | PM.IMPN ---
Progress Note: A&P Assessment and Plan (1) Atrial fibrillation with rapid ventricular response: Code(s): I48.91 - Unspecified atrial fibrillation Status: Acute Assessment and Plan: 10/31/20 14:55 Patient had been on a Cardizem drip. However her rate is now in the 80s to 90s. Her blood pressure was starting dropped to her drip was stopped. Cardiology has been consulted. The patient was seen by Cardiology earlier this month and she did not had the opportunity to follow-up outpatient isidro. However it was recommended that the patient remain off work until she was seen at the office. The patient was sent notify the office immediately for recurrence or do concerns. The patient has been taking medications on a regular basis. The patient had been on sotalol but then developed a prolonged QT. It was noted per Dr. 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 Likely outpatient electrophysiology referral consideration for ablation. This was discussed with Dr. merino who agreed with this. Patient had her metoprolol increased her last admission. Will continue with that if her blood pressure allows. The patient is on Xarelto. The patient was thought to be in SVT with narrow complex QRS with a heart rate in the 180s. The patient was given adenosine and route to the ER. 10/30/20 15:28 patient is a 69-year-old female with history of atrial fibrillation initially patient was treated with sotalol but it was discontinued because of prolonged QT interval, patient was switched over metoprolol however patient presented emergency depart with complaint palpitation and just not feeling very well, in emergency depart patient was found to after fibrillation with RVR and was given IV diltiazem which did improve her rate, today patient is seen by her Cost Engineer and started the patient metoprolol 50 mg b.i.d.and started flecainide at a dosage of 100 mg q.12 hours to bring the patient rate under control, and Xarelto for anticoagulation if this treatment does not improve her rate and symptoms patient will benefit consultation with EP, will continue to monitor and further recommendation to follow. 10/31 on 10/30 Cost Engineer and started the patient metoprolol 50 mg b.i.d.and started flecainide at a dosage of 100 mg q.12 hours and anticoagulated with Eliquis today patient is sinus rhythm and stats feeling much better compare to yesterday, today patient is seen by her math and science instructor and recommended to [facility] and ordered EKG to check QT interval, will continue monitor and if remains clinically stable, will discharge patient home tomorrow. (2) Aortic aneurysm: Code(s): I71.9 - Aortic aneurysm of unspecified site, without rupture Status: Acute Assessment and Plan: The patient is being followed outpatient. (3) QT prolongation: Code(s): R94.31 - Abnormal electrocardiogram [ECG] [EKG] Status: Acute Assessment and Plan: Patient who was taken off of sotalol. She is being followed by Cardiology. (4) Elevated troponin: Code(s): R77.8 - Other specified abnormalities of plasma proteins Status: Acute Assessment and Plan: Most likely related to her RVR. However will continue to trend. (5) Hypothyroidism, unspecified: Qualifiers: Hypothyroidism type: unspecified Qualified Code(s): E03.9 - Hypothyroidism, unspecified Code(s): E03.9 - Hypothyroidism, unspecified Status: Chronic Assessment and Plan: Check her thyroid level and continue levothyroxine (6) Essential hypertension: Code(s): I10 - Essential (primary) hypertension Status: Chronic Assessment and Plan: Going to hold the lisinopril for tonight because her blood pressure is soft. Please re-evaluate tomorrow. Subjective Date/time seen: 10/31/20 14:55 Patient had been on a Cardizem drip. However her rate is now in the 80s to 90s. Her blood pressure was starting dr
[2020-10-31] MEDS: RIVAROXABAN 20 MG TABLET PO (16:02)
[2020-11-01] VITALS (8 sets, daily range): BP systolic 112–128; BP diastolic 72–90; PULSE 58–74; RESP 12–20; TEMP 36.6–36.7; O2SAT 98–99
[2020-11-01 05:52] LABS: Hematocrit 38.4 % (37.0-47.0); Hemoglobin 12.6 g/dL (12.0-15.0); Mean Corpuscular HGB Conc 32.8 g/dl (32-36); Mean Corpuscular Hemoglobin 30.3 pg (26-34); Mean Corpuscular Volume 92.3 fl (80-100); Platelet Count Result 169 k/mm3 (150-375); Red Blood Count 4.16 M/mm3 (4.2-5.4); Red Cell Distribution Width 13.5 % (11.5-14.5)
[2020-11-01 06:05] LABS: Anion Gap 5 mmol/L (8-16); Blood Urea Nitrogen 13 mg/dL (7-17); Calcium 8.9 mg/dL (8.4-10.2); Carbon Dioxide 29 mmol/L (22-30); Chloride 106 mmol/L (98-107); Estimated CRCL calculation 75 ml/min; Estimated Glomerular Filt Rate > 60; Glucose 88 mg/dL (65-105); Sodium 140 mmol/L (137-145)
[2020-11-01] MEDS: METOPROLOL TARTRATE 50 MG TAB PO (08:19)
[2020-11-01] MEDS: FLECAINIDE ACETATE 100 MG TABLET PO (08:19)
--- NOTE | 2020-11-01 08:48 | ECG_ITS ---
Measurements Intervals [place] Rate: 54 P: 58 AK: 203 QRS: 3 QRSD: 86 T: 50 QT: 484 QTc: 460 Interpretive Statements SINUS BRADYCARDIA CHANGE IN SINGLE QRS MORPHOLOGY COMPLEX BORDERLINE AV CONDUCTION DELAY BORDERLINE ST ABNORMALITY- HIGH LATERAL LEADS BORDERLINE ECG Electronically Signed On 11-01-2020 8:35:39 CDT by Black Zeng D.O.
--- NOTE | 2020-11-01 09:46 | PM.PNCARD ---
Progress Note: A&P Assessment and Plan (1) Atrial fibrillation with rapid ventricular response: Code(s): I48.91 - Unspecified atrial fibrillation Status: Acute Assessment and Plan: In sinus rhythm on flecainide and Xarelto for anticoagulation. EKG is ordered to evaluate QRS and QT intervals. Likely DC home tomorrow (2) SVT (supraventricular tachycardia): Code(s): I47.1 - Supraventricular tachycardia Status: Acute Assessment and Plan: Found sinus rhythm (3) Essential hypertension: Code(s): I10 - Essential (primary) hypertension Status: Chronic Assessment and Plan: Resume lisinopril. Will start her at a lower dose lisinopril at 10 mg daily. Continue lower dose of metoprolol 50 mg p.o. b.i.d. (4) Elevated troponin: Code(s): R77.8 - Other specified abnormalities of plasma proteins Status: Acute Assessment and Plan: Type 2 infarction from supply demand mismatch from her elevated heart rate but given flecainide use, she will need an outpatient stress test even though she had no no obstructive coronary disease but this was over 10 years Continue alendronate, atorvastatin, levothyroxine. Okay for discharge from cardiac perspective Subjective Date/time seen: 11/01/20 09:46 Interval history: 69-year-old admitted because of atrial tachyarrhythmia. Started on flecainide yesterday and is currently doing well. She also chest pain. Date of service 10/31/2020: She feels well today. She has no chest pain, shortness of breath, arrhythmia. No palpitations or syncope Review of Systems Constitutional: Constitutional: Reports no additional constitutional complaints Eyes: Eyes: Reports no additional eye complaints ENT: Reports system reviewed and no additional complaints, except as documented Cardiovascular: Cardiovascular: Reports as per HPI and Reports dyspnea Respiratory: Respiratory: Reports as per HPI and Reports dyspnea Gastrointestinal: Gastrointestinal: Reports no additional gastrointestinal complaints Musculoskeletal: Musculoskeletal: Reports no additional musculoskeletal complaints Integumentary/Breasts: Skin/Breast: Reports system reviewed and no additional complaints, except as docu Neurologic: Reports system reviewed and no additional complaints, except as documented Endocrine: Endocrine: Reports no additional endocrine complaints Hematologic/Lymphatic: Hematologic/Lymphatic: Reports no additional hematologic/lymphatic complaints Allergic/Immunologic: Allergic/Immunologic: Reports no additional allergic/immunologic complaints Exam Const: General: comfortable and no acute distress Other: Pleasant somewhat frail looking elderly lady visiting with her family in no distress of any kind currently HENMT: Mouth: Yes moist mucous membranes Eyes: Pupils: Equal, round and reactive pupils present Neck: Neck: supple and no JVD Thyroid: thyroid normal Other: Carotid upstrokes are intact there are no audible bruits Resp: Effort & Inspection: normal respiratory effort Auscultation: clear to auscultation bilaterally Cardio: Rate: regular rate Rhythm: regular rhythm Other: Very soft systolic murmur at the left precordial region no radiation no diastolic murmur GI: Auscultation: normal bowel sounds Skin: General skin exam: normal color Neuro: Cranial nerves: Yes Equal, round and reactive pupils present Cognition (Neuro): normal cognition Extrem: General: normal to inspection Objective Data Vital Signs Vital Signs: Vital Signs - 24 hr 10/31/20 10:00 10/31/20 12:00 10/31/20 12:57 Temperature 35.8 C L Pulse Rate 71 66 62 Respiratory Rate 18 Blood Pressure 140/87 Pulse Oximetry 100 10/31/20 14:00 10/31/20 16:00 10/31/20 16:37 Temperature 36.1 C L Pulse Rate 70 66 67 Respiratory Rate 18 Blood Pressure 132/81 Pulse Oximetry 96 10/31/20 18:00 10/31/20 19:48 10/31/20 20:00 Temperature 36.4 C P
[2020-11-01] MEDS: lisinopriL 10 MG TABLET PO (10:35)
--- NOTE | 2020-11-01 11:11 | PM.DS ---
DS: Admitting Diagnosis Admitting Diagnosis Admitting Diagnosis: Chief Complaint: Palpitations DS: Discharge Diagnosis Discharge Diagnosis (1) Atrial fibrillation with rapid ventricular response: Code(s): I48.91 - Unspecified atrial fibrillation Status: Acute Assessment and Plan: 10/31/20 14:55 Patient had been on a Cardizem drip. However her rate is now in the 80s to 90s. Her blood pressure was starting dropped to her drip was stopped. Cardiology has been consulted. The patient was seen by Cardiology earlier this month and she did not had the opportunity to follow-up outpatient isidro. However it was recommended that the patient remain off work until she was seen at the office. The patient was sent notify the office immediately for recurrence or do concerns. The patient has been taking medications on a regular basis. The patient had been on sotalol but then developed a prolonged QT. It was noted per Dr. 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 Likely outpatient electrophysiology referral consideration for ablation. This was discussed with Dr. merino who agreed with this. Patient had her metoprolol increased her last admission. Will continue with that if her blood pressure allows. The patient is on Xarelto. The patient was thought to be in SVT with narrow complex QRS with a heart rate in the 180s. The patient was given adenosine and route to the ER. 10/30/20 15:28 patient is a 69-year-old female with history of atrial fibrillation initially patient was treated with sotalol but it was discontinued because of prolonged QT interval, patient was switched over metoprolol however patient presented emergency depart with complaint palpitation and just not feeling very well, in emergency depart patient was found to after fibrillation with RVR and was given IV diltiazem which did improve her rate, today patient is seen by her Manager Summer and started the patient metoprolol 50 mg b.i.d.and started flecainide at a dosage of 100 mg q.12 hours to bring the patient rate under control, and Xarelto for anticoagulation if this treatment does not improve her rate and symptoms patient will benefit consultation with EP, will continue to monitor and further recommendation to follow. 10/31 on 10/30 Manager Summer and started the patient metoprolol 50 mg b.i.d.and started flecainide at a dosage of 100 mg q.12 hours and anticoagulated with Eliquis today patient is sinus rhythm and stats feeling much better compare to yesterday, today patient is seen by her manager air and recommended to [facility] and ordered EKG to check QT interval, will continue monitor and if remains clinically stable, will discharge patient home tomorrow. (2) Aortic aneurysm: Code(s): I71.9 - Aortic aneurysm of unspecified site, without rupture Status: Acute Assessment and Plan: The patient is being followed outpatient. (3) QT prolongation: Code(s): R94.31 - Abnormal electrocardiogram [ECG] [EKG] Status: Acute Assessment and Plan: Patient who was taken off of sotalol. She is being followed by Cardiology. (4) Elevated troponin: Code(s): R77.8 - Other specified abnormalities of plasma proteins Status: Acute Assessment and Plan: Most likely related to her RVR. However will continue to trend. (5) Hypothyroidism, unspecified: Qualifiers: Hypothyroidism type: unspecified Qualified Code(s): E03.9 - Hypothyroidism, unspecified Code(s): E03.9 - Hypothyroidism, unspecified Status: Chronic Assessment and Plan: Check her thyroid level and continue levothyroxine (6) Essential hypertension: Code(s): I10 - Essential (primary) hypertension Status: Chronic Assessment and Plan: Going to hold the lisinopril for tonight because her blood pressure is soft. Please re-evaluate tomorrow. DS: Summary Hospital Course Reason for hospitalizati
== END 2020-11-01 12:25 | disposition home or self-care (01) ==
LOC: ANHED 21:40 → ANHIMU 10-30 01:08
PROVIDERS: Admitting Provider Internal Medicine; Emergency Provider Emergency Medicine; PCP Family Medicine; Visit Provider Family Medicine
DX: I48.91 Unspecified atrial fibrillation (principal); R00.2 Palpitations; I71.9 Aortic aneurysm of unspecified site, without rupture; R94.31 Abnormal electrocardiogram [ECG] [EKG]; R77.8 Other specified abnormalities of plasma proteins; E03.9 Hypothyroidism, unspecified; I10 Essential (primary) hypertension; I47.1 Supraventricular tachycardia; Z79.899 Other long term (current) drug therapy
CPT/HCPCS: 36415; 71045; 80048; 80053; 83735; 83880; 84484; 85025; 85027; 85610; 85730; 93005; 96361; 96365; 96366; 96367; 99285; A9270; G0378; J0131; J7030

== ENCOUNTER 2021-01-10 15:15 | Emergency (ER) | payer MEDICARE, SELFPAY ==
[2021-01-10] VITALS (21 sets, daily range): BP systolic 116–156; BP diastolic 81–103; PULSE 16–96; RESP 13–25; TEMP 36.8; O2SAT 78–100
--- NOTE | ~2021-01-10 | XR_ITS ---
EXAMINATION: XR chest 2V DATE: 01/10/2021 15:29 INDICATION: Chest tightness. TECHNIQUE: Frontal and lateral views of the chest were obtained. COMPARISON: Chest single view 10/29/2020 FINDINGS: There is mild scarring at the lung apices. A calcified left lung nodule is consistent with old granulomatous disease. No pleural effusion or pneumothorax. The heart size is normal. IMPRESSION: 1. Mild scarring at the lung apices. Reviewed, dictated and finalized at location A.
--- NOTE | 2021-01-10 15:17 | ECG_ITS ---
Measurements Intervals [place] Rate: 55 P: 58 [place]: 196 QRS: 0 QRSD: 102 T: 59 QT: 473 QTc: 454 Interpretive Statements SINUS BRADYCARDIA LEFT VENTRICULAR HYPERTROPHY WITH ST-T CHANGE BASELINE ARTIFACT- I, II, III, AVR, AVL, AVF, V1-V6 BORDERLINE ECG Electronically Signed On 01-10-2021 15:37:09 CDT by Black Zeng D.O.
[2021-01-10 16:27] LABS: Basophils Percent Auto 0.3 % (0.2-1.2); Eosinophils Absolute Auto 0.1 K/mm3 (0-0.3); Eosinophils Percent Auto 1.8 % (0-4.4); Hematocrit 43.7 % (37.0-47.0); Hemoglobin 14.2 g/dL (12.0-15.0); Immature Granulocyte Absolute 0.02 K/mm3 (0.00-0.031); Immature Granulocyte Percent A 0.3 % (0-0.5); Lymphocytes Absolute Auto 1.84 K/mm3 (0.9-3.2); Lymphocytes Percent Auto 25.6 % (18.3-44.2); Mean Corpuscular HGB Conc 32.5 g/dl (32-36); Mean Corpuscular Hemoglobin 29.6 pg (26-34); Mean Corpuscular Volume 91.2 fl (80-100); Mean Platelet Volume 10.3 fl (7.4-10.4); Monocytes Absolute Auto 0.5 K/mm3 (0.1-0.6); Monocytes Percent Auto 6.7 % (2.6-8.5); Neutrophils Absolute Auto 4.7 K/mm3 (1.3-6.7); Neutrophils Percent Auto 65.3 % (45.5-73.1); Platelet Count Result 196 k/mm3 (150-375); Red Blood Count 4.79 M/mm3 (4.2-5.4); Red Cell Distribution Width 13.2 % (11.5-14.5); White Blood Count 7.2 K/mm3 (4.5-10.0)
[2021-01-10 16:40] LABS: Prothrombin Time 13.9 Seconds (11.1-14.7)
[2021-01-10 16:41] LABS: Partial Thromboplastin Time 27.4 SECONDS (22.3-36.8)
[2021-01-10 16:43] LABS: Anion Gap 10 mmol/L (8-16); Blood Urea Nitrogen 17 mg/dL (7-17); Calcium 9.5 mg/dL (8.4-10.2); Carbon Dioxide 25 mmol/L (22-30); Chloride 106 mmol/L (98-107); Estimated CRCL calculation 68 ml/min; Estimated Glomerular Filt Rate > 60; Glucose 119 mg/dL (65-105); Potassium 3.9 mmol/L (3.4-5.0); Sodium 141 mmol/L (137-145)
[2021-01-10 16:55] LABS: Troponin I < 0.012 ng/mL (0.000-0.034)
[2021-01-10] MEDS: ASPIRIN 81 MG CHEWABLE TABLET 324 MG PO (16:56)
--- NOTE | 2021-01-10 17:14 | ED.CHESTPAIN ---
HPI - Chest Pain General Chief Complaint: Chest Pain Stated Complaint: RAPID HR,CHEST TIGHTNESS Time Seen by Provider: 01/10/21 16:07 Source: patient, RN notes reviewed and old records reviewed Mode of arrival: ambulatory Limitations: no limitations History of Present Illness HPI narrative: Patient is a 70-year-old female who presents to emergency department for evaluation of sensation of rapid heart rate and chest discomfort that occurred today patient notes that she had 2 of these episodes which were self-limited and presents to emergency department on arrival notes that her symptoms have resolved patient has had similar occurrences in the past noting that she had had some yesterday patient notes history of A. fib with RVR and is currently being set up to see ladle operator or cardiology at an outside facility for ablation patient is followed by cardiology at [facility] Dr. Christine patient notes that she has been compliant with her medications to include anticoagulation on arrival patient in no distress denies any recent illness or other complaints lives at home by herself Related Data Home Medications Medication Instructions Recorded Confirmed rivaroxaban 20 mg tablet 20 mg PO DAILY 03/10/20 10/30/20 lisinopril 10 mg tablet 20 mg PO DAILY tablet 08/31/20 10/30/20 Allergies Allergy/AdvReac Type Severity Reaction Status Date / Time No Known Allergies Allergy Verified 01/10/21 15:18 Review of Systems Review of Systems: All systems reviewed & are unremarkable except as noted in HPI and below PMFSH Past Medical History Medical History Age-related osteoporosis without current pathological fracture Atrial fibrillation, chronic Breast cancer screening Coronary aneurysm Follows with Dr. merino Coronary artery disease involving [place] coronary artery of [place] heart without angina pectoris Essential hypertension Hyperlipidemia, unspecified Hypothyroidism, unspecified S/P angiogram of extremity Right femoral area Surgical History Surgical History H/O: hysterectomy Family History Family History Mother Family history of malignant neoplasm of breast Other Family history of cardiovascular disease Hypertension Social History Social History Social History: The patient is . She has 2 children a son and a daughter. She does not have a durable power shuttle hand but would appoint her daughter as the power shuttle hand. The patient denies any alcohol, marijuana, or illicit drugs. 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 Smoking status: Never smoker Second hand tobacco smoke exposure: No Alcohol intake: never Substance use: never Substance use type: does not use Gender identity (if verbalized by the patient): Female Spiritual care concerns: No Exam Narrative: Exam Narrative: GENERAL: Well-appearing, well-nourished, and in no acute distress. HEAD: Normocephalic, atraumatic. EYES: PERRLA and EOMI. ENT: Nares clear, no rhinorrhea or epistaxis. Mucous membranes moist. CHEST: Clear to auscultation. No respiratory distress. No wheezes rales or rhonchi HEART: Regular rate and rhythm. No murmur heard. Normal peripheral pulses. ABDOMEN: Soft, nontender, nondistended EXTREMITIES: Normal range of motion. No edema. SKIN: Warm, dry, no rash. NEURO: No focal deficits. Alert and oriented x3. Cranial nerves II through XII grossly intact PSYCH: Normal mood and affect. Course Reevaluation(s) Reevaluation #1: Patient resting in the room at this time in no distress does not appear uncomfortable. Patient denying any pain patient with sinus bradycardia on the cardiac rn. Case was discussed with the patient's pharmacy technician who agrees the
[2021-01-10 17:17] LABS: Add Urine Microscopic? YES; Appearance Urine Clear (Clear); Bacteria Urine Trace /hpf; Bilirubin Urine Negative (Negative); Blood Urine Negative (Negative); Color Urine Yellow (Yellow); Glucose Urine UA Negative (Negative); Ketones Urine Negative (Negative); Leukocyte Esterase Ur 2+ LEU/UL (Negative); Nitrate Urine Negative (Negative); Protein Urine Negative (Negative); RBC Urine 0-2 /hpf (0-2); Specific Grav Ur 1.012 (1.001-1.035); Squamous Epithelial Cell Urine Rare /hpf (Few); Urobilinogen Urine Negative mg/dL (<2.0); WBC Urine 31-50 /hpf
[2021-01-10 18:30] LABS: Troponin I < 0.012 ng/mL (0.000-0.034)
== END 2021-01-10 19:58 | disposition home or self-care (01) ==
PROVIDERS: Emergency Medicine; Emergency Medicine Emergency Medical Services; Emergency Provider Emergency Medicine; PCP Family Medicine
DX: R07.9 Chest pain, unspecified (principal); N39.0 Urinary tract infection, site not specified; I48.20 Chronic atrial fibrillation, unspecified; I25.10 Atherosclerotic heart disease of native coronary artery without angina pectoris; E78.5 Hyperlipidemia, unspecified; E03.9 Hypothyroidism, unspecified; M81.0 Age-related osteoporosis without current pathological fracture; Z79.01 Long term (current) use of anticoagulants; R00.1 Bradycardia, unspecified; I51.7 Cardiomegaly
CPT/HCPCS: 36415; 71046; 80048; 81001; 84484; 85025; 85610; 85730; 87086; 93005; 96365; 99284; A9270; J0696

== ENCOUNTER 2021-03-30 11:12 | Emergency (ER) | payer MEDICARE, MEDICAID, SELFPAY ==
[2021-03-30 11:57] VITALS: BP 133/83; PULSE 64; RESP 16; TEMP 36.4; O2SAT 99
[2021-03-30 12:03] VITALS: BP 133/83; PULSE 64; RESP 16; TEMP 36.4; O2SAT 99
--- NOTE | 2021-03-30 13:04 | ED.GENADULT ---
HPI - General Adult General Chief complaint: Extremity Problem,Nontraumatic Stated complaint: Left Hip Pain Time Seen by Provider: 03/30/21 13:10 Source: patient Mode of arrival: ambulatory Limitations: no limitations History of Present Illness HPI narrative: Jane Pereyra is a 70-year-old female with a prior history of A. fib, hypertension, high cholesterol, chronic anticoagulation, 3 heart attacks in October, atrial ablation, numbness of pain in her left butt cheek that goes into her posterior upper thigh when bends forward. Started 3 days ago pain can be elicited by moving leg posteriorly and anteriorly and is painful for her to try and stand on the left leg Related Data Home Medications Medication Instructions Recorded Confirmed rivaroxaban 20 mg tablet 20 mg PO DAILY 03/10/20 03/30/21 atorvastatin 20 mg PO DAILY 03/30/21 03/30/21 levothyroxine 75 mcg PO DAILY 03/30/21 03/30/21 lisinopril 20 mg PO DAILY 03/30/21 03/30/21 pantoprazole 40 mg PO DAILY 03/30/21 03/30/21 Allergies Allergy/AdvReac Type Severity Reaction Status Date / Time No Known Allergies Allergy Verified 03/30/21 11:55 Review of Systems Review of Systems: CONSTITUTIONAL: Denies fever, chills, sweats. EYES: Denies visual changes, redness, discharge. ENT: Denies rhinorrhea, congestion, sore throat, otalgia. CARDIOVASCULAR: Denies chest pain, palpitations, edema. RESPIRATORY: Denies dyspnea, wheezing, cough GASTROINTESTINAL: Denies abdominal pain, nausea, vomiting, diarrhea. GENITOURINARY: Denies dysuria, hematuria, abnormal discharge SKIN: Denies rash or itching. NEUROLOGIC: Denies numbness, or focal weakness. PSYCHIATRIC: Denies anxiety or depression. Left buttock pain PMFSH Past Medical History Medical History Age-related osteoporosis without current pathological fracture Atrial fibrillation with rapid ventricular response Atrial fibrillation, chronic Breast cancer screening Coronary aneurysm Follows with Dr. merino Coronary artery disease involving [place] coronary artery of [place] heart without angina pectoris Essential hypertension Fall Hyperlipidemia, unspecified Hypothyroidism, unspecified S/P angiogram of extremity Right femoral area SVT (supraventricular tachycardia) Surgical History Surgical History H/O: hysterectomy Family History Family History Mother Family history of malignant neoplasm of breast Other Family history of cardiovascular disease Hypertension Social History Social History Social History: The patient is . She has 2 children a son and a daughter. She does not have a durable power contract attorney but would appoint her daughter as the power contract attorney. The patient denies any alcohol, marijuana, or illicit drugs. 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 Smoking status: Never smoker Second hand tobacco smoke exposure: No Alcohol intake: never Substance use: never Substance use type: does not use Gender identity (if verbalized by the patient): Female Sexual Orientation (if Verbalized by the Patient): Straight or Heterosexual Spiritual care concerns: No Comments At time of signature, I agree with nursing past medical, surgical, social and family history. There is no relevant family history pertinent to the presenting complaint. Exam Narrative: GENERAL: This is a well-nourished, well-developed patient, in moderate distress. HEAD: normocephalic, atraumatic. EYES: Sclera clear/white. Vision is grossly intact. EARS: External ears normal, Hearing grossly intact. NOSE: External nose normal without nasal discharge, nares without redness, no rhinorrhea. THROAT: Mucous membranes moist, NECK: Neck supple, CARDIOVASCULAR: Regular rate and r
== END 2021-03-30 13:21 | disposition home or self-care (01) ==
PROVIDERS: Emergency Provider Nurse Practitioner; PCP Family Medicine
DX: G57.02 Lesion of sciatic nerve, left lower limb (principal); M81.0 Age-related osteoporosis without current pathological fracture; I48.91 Unspecified atrial fibrillation; I25.10 Atherosclerotic heart disease of native coronary artery without angina pectoris; I10 Essential (primary) hypertension; E78.5 Hyperlipidemia, unspecified; E03.9 Hypothyroidism, unspecified
CPT/HCPCS: 99213; G0463

== ENCOUNTER 2021-06-11 11:02 | Outpatient (CLI) | payer MEDICARE, MEDICAID, SELFPAY ==
--- NOTE | ~2021-06-11 | CT_ITS ---
EXAMINATION: CT diagnostic chest wo con EXAM DATE: 06/11/2021 11:27 INDICATION: Ascending aortic aneurysm. TECHNIQUE: Spiral CT of the chest without contrast. Axial, coronal and sagittal images of the chest were reviewed. Coronal maximum intensity pixel images of chest reviewed. The dose-length product ( DLP) for this examination was 240.24 mGy-cm. The exposure was tailored according to patient size (au to mA exposure control), and iterative reconstruction (ASIR) was used as additional dose reduction te chnique. Comparison is made to prior examination from 06/09/2020. FINDINGS: The ascending aorta measures up to 4.8 cm, not significantly changed. Again there are innu merable upper lobe predominant tree-in-bud pattern nodular opacities up to 4 mm in size likely postin fectious process. There are no pleural or pericardial effusions. Mild emphysema. Tracheobronchial tr ee is patent. There is no mediastinal, hilar or axillary lymphadenopathy. There is no pneumothora x. Heart normal in size. No evidence of coronary arterial calcification. Upper abdomen is unrema rkable. There is mild thoracic spondylosis without osteoblastic or osteolytic lesions identified. IMPRESSION: 1. Stable ascending aortic 4.8 cm aneurysm. 2. Chronic lobe predominant tree-in-bud nodules, likely postinfectious. 3. Mild emphysema. Reviewed, dictated and finalized at location A. SAFETY INSPECTOR
== END 2021-06-11 11:03 | disposition home or self-care (01) ==
LOC: ANHIMG 11:06
PROVIDERS: PCP Family Medicine; Visit Provider Internal Medicine Cardiovascular Disease
DX: I71.2 Thoracic aortic aneurysm, without rupture (principal); R91.8 Other nonspecific abnormal finding of lung field; J43.9 Emphysema, unspecified
CPT/HCPCS: 71250

== ENCOUNTER 2021-10-05 19:39 | Emergency (ER) | payer OTHER, MEDICARE, MEDICAID, SELFPAY ==
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
[2021-10-05 19:43] VITALS: BP 161/126; PULSE 75; RESP 18; TEMP 36.9; O2SAT 99
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
[2021-10-05 21:22] VITALS: BP 133/96; PULSE 63; RESP 16; O2SAT 96
== END 2021-10-05 21:24 | disposition home or self-care (01) ==
PROVIDERS: Emergency Provider Emergency Medicine; PCP Family Medicine
DX: Z04.1 Encounter for examination and observation following transport accident (principal); M81.0 Age-related osteoporosis without current pathological fracture; I48.91 Unspecified atrial fibrillation; I48.20 Chronic atrial fibrillation, unspecified; I25.10 Atherosclerotic heart disease of native coronary artery without angina pectoris; I10 Essential (primary) hypertension; E78.5 Hyperlipidemia, unspecified; E03.9 Hypothyroidism, unspecified; Z79.01 Long term (current) use of anticoagulants; G93.89 Other specified disorders of brain; V43.52XA Car driver injured in collision with other type car in traffic accident, initial encounter
CPT/HCPCS: 70450; 99284

== ENCOUNTER 2022-09-04 09:36 | Outpatient (CLI) | payer MEDICARE, MEDICAID, SELFPAY ==
--- NOTE | ~2022-09-04 | CT_ITS ---
EXAMINATION: CT diagnostic chest wo con DATE: 09/04/2022 11:51 INDICATION: Thoracic aortic aneurysm TECHNIQUE: Computed tomography (CT) of the chest was performed without intravenous contrast. The dose -length product (DLP) was 188.63 mGy-cm. Automated exposure control and iterative reconstruction tech [employer] were employed. COMPARISON: 06/11/2021 FINDINGS: There is a stable fusiform aneurysm of the ascending aorta measuring 4.8 cm in maximum dime nsion at the level of the main pulmonary artery. No dissection is identified. There are chronic upper lung zone predominant nodules without significant change. There is mild dependent atelectasis. No pl eural effusion or pneumothorax. Mild emphysema is noted. No pathologically enlarged thoracic lymph no michel are identified. The heart size is normal. There is mild thoracic spondylosis. IMPRESSION: 1. Stable 4.8 cm fusiform aneurysm of the ascending aorta. 2. Chronic upper lung zone predominant pulmonary nodules, consistent with chronic infection. Reviewed, dictated and finalized at location F. IVING SUPERVISOR IMPRESSION: 1. Stable 4.8 cm fusiform aneurysm of the ascending aorta. 2. Chronic upper lung zone predominant pulmonary nodules, consistent with chron ic infection.
== END 2022-09-04 09:37 | disposition home or self-care (01) ==
PROVIDERS: PCP Family Medicine; Visit Provider Internal Medicine Cardiovascular Disease
DX: I71.21 Aneurysm of the ascending aorta, without rupture (principal); R91.8 Other nonspecific abnormal finding of lung field
CPT/HCPCS: 71250

== ENCOUNTER 2022-10-22 14:36 | Emergency (ER) | payer MEDICARE, MEDICAID, SELFPAY ==
--- NOTE | 2022-10-22 15:14 | PC.NURSE ---
Pt left before being triaged.
== END 2022-10-22 16:43 | disposition left against medical advice (07) ==
LOC: ANHED 15:11
PROVIDERS: PCP Family Medicine
DX: Z53.21 Procedure and treatment not carried out due to patient leaving prior to being seen by health care provider (principal)
CPT/HCPCS: 99199

== ENCOUNTER 2023-01-01 07:03 | Emergency (ER) | payer MEDICARE, MEDICAID, SELFPAY ==
[2023-01-01] VITALS (7 sets, daily range): BP systolic 97–142; BP diastolic 71–105; PULSE 73–84; RESP 15–18; TEMP 36.6; O2SAT 97–100
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
--- NOTE | ~2023-01-01 | CT_ITS ---
EXAMINATION: CTA chest abdomen pelvis DATE: 01/01/2023 08:04 INDICATION: Chest pain. TECHNIQUE: Computed tomographic angiography (CTA) of the chest, abdomen, and pelvis was performed wit h 100 mL Omnipaque-350 intravenous contrast. Automated exposure control and iterative reconstruction technique were employed. The dose-length product was 755.45 mGy-cm. Maximum intensity projection 3D-r econstructions of the aorta and other arteries were constructed by the technologist on a separate wor kstation. COMPARISON: Chest CT 09/04/2022, CT abdomen and pelvis 02/04/2019 FINDINGS: CHEST CTA: There is mild scarring at the lung apices. There is mild atelectasis bilaterally. There is septal thi ckening in the lungs, consistent with mild pulmonary edema. Again seen are numerous nodules scattered in the lungs measuring up to 4 mm, likely benign. A calcified left lung nodule is consistent with ol d granulomatous disease. No pleural effusion. Cardiomegaly is noted. No pericardial effusion. There i s ectasia of ascending aorta measuring 4.7 cm. There is mild aortic atherosclerosis. There is moderat e thoracic spondylosis. There is mild chronic anterior wedging of multiple midthoracic vertebral bodi es. ABDOMEN AND PELVIS CTA: The liver is normal. The common duct is mildly dilated to 9 mm. The gallbladder is distended. The spl een, pancreas, and adrenal glands are normal. There is cortical thinning of the kidneys. There are cy sts in the kidneys measuring up to 11 mm on the left. There are no dilated loops of bowel. The append ix is normal. There are no pathologically enlarged lymph nodes. There is no free intraperitoneal flui d. Abdominal aorta is normal in caliber. There is mild aortic atherosclerosis. No dissection. There i s no significant stenosis of celiac axis, superior mesenteric artery, the renal arteries, or inferior mesenteric artery. There is moderate lumbar spondylosis. IMPRESSION: 1. Stable ectasia of ascending aorta measuring 4.7 cm. 2. Mildly dilated common duct. 3. Gallbladder distention, which may be secondary to fasting. Correlate with physical exam to exclude acute cholecystitis. 4. Mild pulmonary edema. Reviewed, dictated and finalized at location A. IMPRESSION: 1. Stable ectasia of ascending aorta measuring 4.7 cm. 2. Mildly dilated common duct. 3. Gallbladder distention, which may be secondary to fasting. Correlate with ph ysical exam to exclude acute cholecystitis. 4. Mild pulmonary edema.
--- NOTE | ~2023-01-01 | CT_ITS ---
EXAMINATION: CT cervical spine wo con DATE: 01/01/2023 08:04 INDICATION: Fall with head injury TECHNIQUE: Computed tomography (CT) of the cervical spine was performed without intravenous contrast. Automated exposure control and iterative reconstruction technique were employed. The dose-length pro duct was 161.24 mGy-cm. COMPARISON: 08/05/2017 FINDINGS: Alignment is normal. Vertebral body and disc heights are normal. No fracture. Moderate osteoarthritis at the atlantoaxial articulation. No stenosis of the osseous central canal. There is multilevel mild uncovertebral osteoarthritis and severe left-sided and moderate to severe right-sided cervical facet osteoarthritis. The left C2-C3 facet joint is fused. This contributes to multilevel bilateral mild c ervical neural foraminal stenosis. Cervical soft tissues are unremarkable. Biapical pleural-parenchym al scarring. IMPRESSION: 1. Severe cervical facet osteoarthritis. No acute osseous abnormality. Reviewed, dictated and finalized at location B.
--- NOTE | ~2023-01-01 | XR_ITS ---
EXAMINATION: XR chest 2V DATE: 01/01/2023 07:43 INDICATION: Midsternal chest pain radiating to the left arm TECHNIQUE: frontal and lateral views of the chest were obtained. COMPARISON: Chest radiograph dated 01/10/[address] dated 09/04/2022 FINDINGS: Unchanged mild biapical pleural-parenchymal scarring. Calcified nodule at the left upper lung zone co nsistent with old granulomatous disease. No other airspace opacities, pulmonary edema, pleural effusi on or pneumothorax. Heart size is normal. Tortuous thoracic aorta. Upper thoracic kyphosis with moder ate spondylosis and chronic mild anterior wedging of a few mid thoracic vertebral bodies. IMPRESSION: 1. No acute cardiopulmonary disease. Reviewed, dictated and finalized at location B.
--- NOTE | 2023-01-01 07:12 | ECG_ITS ---
Measurements Intervals [place] Rate: 78 P: 95 [place]: 184 QRS: -6 QRSD: 88 T: 55 QT: 432 QTc: 494 Interpretive Statements SINUS RHYTHM SEPTAL MYOCARDIAL INFARCTION , PROBABLY RECENT BASELINE ARTIFACT- I, II, AVR, AVL, AVF ABNORMAL ECG COMPARED TO ECG 01/10/2021 15:19:02 SINUS RHYTHM NOW PRESENT SEPTAL INFARCT, RECENT NOW PRESENT Electronically Signed On 01-01-2023 8:26:32 CDT by Black Zeng D.O.
--- NOTE | 2023-01-01 07:14 | ECG_ITS ---
Measurements Intervals [place] Rate: 75 P: 234 [place]: 140 QRS: 194 QRSD: 95 T: 138 QT: 455 QTc: 509 Interpretive Statements SINUS RHYTHM LATERAL MYOCARDIAL INFARCTION , OF INDETERMINATE AGE [40+ ms Q WAVE AND/OR ST/T ABNORMALITY IN I/aVL/V5/V6] ABNORMAL ECG Electronically Signed On 01-08-2023 13:28:50 CDT by Kem Christensen M.D.
[2023-01-01 07:24] LABS: Basophils Percent Auto 0.2 % (0.2-1.2); Eosinophils Percent Auto 0.2 % (0-4.4); Hemoglobin 13.1 g/dL (12.0-15.0); Immature Granulocyte Absolute 0.05 K/mm3 (0.00-0.031); Immature Granulocyte Percent A 0.4 % (0-0.5); Lymphocytes Absolute Auto 1.07 K/mm3 (0.9-3.2); Lymphocytes Percent Auto 8.6 % (18.3-44.2); Mean Corpuscular HGB Conc 33.6 g/dl (32-36); Mean Corpuscular Hemoglobin 30.5 pg (26-34); Mean Corpuscular Volume 90.7 fl (80-100); Mean Platelet Volume 9.7 fl (7.4-10.4); Monocytes Absolute Auto 0.8 K/mm3 (0.1-0.6); Monocytes Percent Auto 6.7 % (2.6-8.5); Neutrophils Absolute Auto 10.5 K/mm3 (1.3-6.7); Neutrophils Percent Auto 83.9 % (45.5-73.1); Platelet Count Result 223 k/mm3 (150-375); Red Cell Distribution Width 13.3 % (11.5-14.5); White Blood Count 12.5 K/mm3 (4.5-10.0)
[2023-01-01 07:35] LABS: INR 1.2
[2023-01-01 07:36] LABS: Alanine Aminotransferase 20 U/L (6-35); Albumin Level 4.2 g/dL (3.5-5.1); Alkaline Phosphatase 54 U/L (38-126); Anion Gap 7 mmol/L (8-16); Aspartate Amino Transferase 41 U/L (14-36); Bilirubin,Total 0.7 mg/dL (0.2-1.3); Blood Urea Nitrogen 13 mg/dL (7-17); Calcium 9.1 mg/dL (8.4-10.2); Carbon Dioxide 25 mmol/L (22-30); Chloride 100 mmol/L (98-107); Estimated CRCL calculation 86 ml/min; Estimated Glomerular Filt Rate > 60; Glucose 140 mg/dL (65-110); Lipase 81 U/L (23-300); Partial Thromboplastin Time 29.2 SECONDS (22.3-36.8); Potassium 3.5 mmol/L (3.4-5.0); Sodium 132 mmol/L (137-145)
--- NOTE | 2023-01-01 07:57 | PC.NURSE ---
Pt to CT scan/Xray via stretcher at this time.
[2023-01-01] MEDS: HEPARIN SODIUM 5,000 UNITS/ML VIAL 4000 UNITS IV PUSH (08:55)
[2023-01-01] MEDS: HEPARIN SOD/D5W 100 UNITS/ML 25,000 UNITS/250 ML BAG 8 UNITS IV CONT (08:57)
[2023-01-01] MEDS: MORPHINE SULFATE (*CRX) 4 MG/ML INJ IV PUSH ×2 (08:58→11:34)
[2023-01-01] MEDS: NITROGLYCERIN SL 0.4 MG TABLET SUBLINGUAL (08:59)
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
== END 2023-01-01 11:34 | disposition short-term general hospital (02) ==
PROVIDERS: Emergency Provider Emergency Medicine; PCP Family Medicine; Referring Provider Internal Medicine Cardiovascular Disease
DX: I21.4 Non-ST elevation (NSTEMI) myocardial infarction (principal); D32.0 Benign neoplasm of cerebral meninges; G93.6 Cerebral edema; I71.21 Aneurysm of the ascending aorta, without rupture; S79.911A Unspecified injury of right hip, initial encounter; S00.83XA Contusion of other part of head, initial encounter; I48.20 Chronic atrial fibrillation, unspecified; I10 Essential (primary) hypertension; E78.5 Hyperlipidemia, unspecified; E03.9 Hypothyroidism, unspecified; Z90.710 Acquired absence of both cervix and uterus; M47.812 Spondylosis without myelopathy or radiculopathy, cervical region; M16.0 Bilateral primary osteoarthritis of hip; Z79.01 Long term (current) use of anticoagulants; W19.XXXA Unspecified fall, initial encounter
CPT/HCPCS: 36415; 70450; 71046; 71275; 72125; 73502; 74174; 80053; 83690; 84484; 85025; 85610; 85730; 93005; 96365; 96366; 96375; 96376; 99285; A9270; J1644; J2270; Q9967

== ENCOUNTER 2023-02-11 17:24 | Observation (INO) | payer MEDICARE, SELFPAY ==
--- NOTE | ~2023-02-11 | CT_ITS ---
EXAMINATION: CT cervical spine wo con DATE: 02/11/2023 18:07 INDICATION: Neck injury. Fall. TECHNIQUE: Computed tomography (CT) of the cervical spine was performed without intravenous contrast. Automated exposure control and iterative reconstruction technique were employed. The dose-length pro duct was 259.84 mGy-cm. COMPARISON: CT cervical spine 01/01/2023 FINDINGS: Bone alignment is normal. Vertebral body heights are normal. There is mildly decreased disc height at C5-C6 and C6-C7. There is a hemangioma in T1 vertebral body. The following disc levels are specifically discussed: C2-C3: There is mild right uncovertebral joint osteoarthritis. There is ankylosis of the left facet j oints with mild hypertrophy. There is mild right facet joint osteoarthritis. There is no neural noreen inal stenosis. There is no central canal stenosis. C3-C4: There is mild bilateral uncovertebral joint osteoarthritis. There is severe bilateral facet cruz int osteoarthritis. There is mild right neural foraminal stenosis. There is no central canal stenosis . C4-C5: There is no uncovertebral joint osteoarthritis. There is severe bilateral facet joint osteoart hritis. There is mild bilateral neural foraminal stenosis. There is no central canal stenosis. C5-C6: There is no uncovertebral joint osteoarthritis. There is severe bilateral facet joint osteoart hritis. There is mild bilateral neural foraminal stenosis. There is no central canal stenosis. C6-C7: There is no uncovertebral joint osteoarthritis. There is severe bilateral facet joint osteoart hritis. There is mild bilateral neural foraminal stenosis. There is no central canal stenosis. C7-T1: There is no uncovertebral joint osteoarthritis. There is severe bilateral facet joint osteoart hritis. There is mild bilateral neural foraminal stenosis. There is no central canal stenosis. IMPRESSION: 1. No fracture. 2. Mild cervical spondylosis. Reviewed, dictated and finalized at location E.
--- NOTE | ~2023-02-11 | XR_ITS ---
EXAMINATION: XR chest 2V DATE: 02/11/2023 17:57 INDICATION: Weakness. Fall. TECHNIQUE: Frontal and lateral views of the chest were obtained. COMPARISON: Chest 2 views 01/01/2023, chest CT 01/01/2023 FINDINGS: Again seen is mild scarring at the lung apices. A calcified left lung nodule is consistent with old granulomatous disease. No pleural effusion or pneumothorax. The heart size is normal. There is ectasia of ascending aorta. IMPRESSION: 1. No acute cardiopulmonary disease. Reviewed, dictated and finalized at location E.
--- NOTE | ~2023-02-11 | CT_ITS ---
EXAMINATION: CT thoracic lumbar wo con DATE: 02/11/2023 19:07 INDICATION: Back pain. Fall. TECHNIQUE: Computed tomography (CT) of the thoracic and lumbar spine was performed without intravenou s contrast. Automated exposure control and iterative reconstruction technique were employed. The dose -length product was 1051.98 mGy-cm. COMPARISON: CT chest, abdomen, and pelvis 01/01/2023 FINDINGS: CT THORACIC SPINE: There is ectasia of ascending aorta measuring 4.9 cm. There is 8 degrees levocurva ture of thoracic spine. There is kyphosis of thoracic spine. There is mild chronic anterior wedging o f T6, T7, and T9 vertebral bodies. There is a hemangioma in T5 vertebral body. There is moderately de creased disc height at T5-T6 and T6-T7. There is mildly decreased disc height at multiple other level s. There is multilevel facet joint osteoarthritis, severe in upper thoracic spine. On the right, ther e is mild neural foraminal stenosis at T2-T3, T3-T4, T4-T5, and T8-T9. On the left, there is mild mikal ral foraminal stenosis at T3-T4 and T4-T5. No central canal stenosis. CT LUMBAR SPINE: Bone alignment is normal. Vertebral body heights are normal. There is mildly decreas ed disc height from L2-L3 through L5-S1. The following disc levels are specifically discussed: L1-L2: The disc does not extend beyond the endplate margin. There is no facet joint osteoarthritis. T here is no neural foraminal stenosis. There is no central canal stenosis. L2-L3: The disc is bulging. There is mild bilateral facet joint osteoarthritis. There is mild bilater al neural foraminal stenosis. There is mild central canal stenosis. L3-L4: The disc is bulging. There is mild bilateral facet joint osteoarthritis. There is mild bilater al neural foraminal stenosis. There is mild central canal stenosis. L4-L5: The disc is bulging. There is severe bilateral facet joint osteoarthritis. There is mild bilat eral neural foraminal stenosis. There is mild central canal stenosis. L5-S1: The disc is bulging. There is severe bilateral facet joint osteoarthritis. There is mild bilat eral neural foraminal stenosis. There is mild central canal stenosis. IMPRESSION: 1. Moderate thoracic spondylosis and mild lumbar spondylosis. 2. Ectasia of ascending aorta measuring 4.9 cm. Reviewed, dictated and finalized at location E.
--- NOTE | ~2023-02-11 | CT_ITS ---
EXAMINATION: CT brain wo con DATE: 02/11/2023 18:04 INDICATION: Headache. Fall. Weakness. TECHNIQUE: Computed tomography (CT) of the head was performed without intravenous contrast. The mA wa s adjusted according to patient size. Iterative reconstruction technique was employed. The dose-lengt h product was 1362.00 mGy-cm. COMPARISON: Head CT 01/01/2023, 10/05/21, CTA 09/29/20 FINDINGS: There is a 2.5 x 2.0 x 2.9 cm mass in right sylvian fissure. There is a large distribution of vasogenic edema in right cerebral hemisphere. There is a small old infarct in right cerebellum. Th ere is no acute ischemic infarct or intracranial hemorrhage. There is 10 mm leftward midline shift at the foramen of Monro. Right-sided uncal herniation is noted. The orbits are normal. There is mild mu cosal thickening in the ethmoid sinuses. The mastoid air cells are normal. IMPRESSION: 1. 2.9 cm mass in right sylvian fissure, increased from 2.6 cm on 10/05/21, consistent with a meningiom a. 2. Extensive right-sided cerebral vasogenic edema with leftward midline shift and right-sided uncal h erniation, present on 01/01/23, but new from 10/05/21. Reviewed, dictated and finalized at location E. IMPRESSION: 1. 2.9 cm mass in right sylvian fissure, increased from 2.6 cm on 10/05/21, consi stent with a meningioma. 2. Extensive right-sided cerebral vasogenic edema with leftward midline shift a nd right-sided uncal herniation, present on 01/01/23, but new from 10/05/21.
--- NOTE | ~2023-02-11 | XR_ITS ---
EXAMINATION: XR foot RT min 3V DATE: 02/11/2023 19:11 INDICATION: Right foot pain. Fall. TECHNIQUE: 4 views of right foot were obtained. COMPARISON: None. FINDINGS: Bone alignment is normal. No fracture. There is mild osteoarthritis of talonavicular joint and some of the interphalangeal joints. There are enthesophytes at the posterior and plantar aspects of calcaneal tuberosity. There is heterotopic ossification dorsal to navicular. IMPRESSION: 1. Mild polyarticular osteoarthritis. Reviewed, dictated and finalized at location E.
[2023-02-11 17:21] VITALS: BP 128/85; PULSE 62; RESP 22; TEMP 36.2; O2SAT 98
--- NOTE | 2023-02-11 17:26 | ECG_ITS ---
Measurements Intervals [place] Rate: 66 P: -16 PA: 174 QRS: -9 QRSD: 89 T: 71 QT: 452 QTc: 474 Interpretive Statements SINUS RHYTHM ATRIAL PREMATURE COMPLEX LEFT VENTRICULAR HYPERTROPHY WITH ST-T CHANGE CONSIDER INFERIOR INFARCT, AGE INDETERMINATE T WAVE ABNORMALITY IN ANTEROSEPTAL LEADS- CONSIDER ISCHEMIA BASELINE ARTIFACT- I, II, III, AVR, AVL, AVF ABNORMAL ECG COMPARED TO ECG 01/01/2023 07:14:56 NO SIGNIFICANT CHANGES Electronically Signed On 02-11-2023 20:21:44 CDT by Black Zeng D.O.
--- NOTE | 2023-02-11 17:52 | PC.NURSE ---
Pt to xray via stretcher at this time
[2023-02-11 18:01] LABS: Basophils Percent Auto 0.4 % (0.2-1.2); Eosinophils Absolute Auto 0.1 K/mm3 (0-0.3); Eosinophils Percent Auto 0.7 % (0-4.4); Hematocrit 38.5 % (37.0-47.0); Hemoglobin 12.6 g/dL (12.0-15.0); Immature Granulocyte Absolute 0.06 K/mm3 (0.00-0.031); Immature Granulocyte Percent A 0.7 % (0-0.5); Lymphocytes Absolute Auto 1.12 K/mm3 (0.9-3.2); Lymphocytes Percent Auto 12.4 % (18.3-44.2); Mean Corpuscular HGB Conc 32.7 g/dl (32-36); Mean Corpuscular Hemoglobin 31.3 pg (26-34); Mean Corpuscular Volume 95.5 fl (80-100); Mean Platelet Volume 9.7 fl (7.4-10.4); Monocytes Absolute Auto 0.6 K/mm3 (0.1-0.6); Monocytes Percent Auto 6.5 % (2.6-8.5); Neutrophils Absolute Auto 7.2 K/mm3 (1.3-6.7); Neutrophils Percent Auto 79.3 % (45.5-73.1); Platelet Count Result 199 k/mm3 (150-375); Red Blood Count 4.03 M/mm3 (4.2-5.4); Red Cell Distribution Width 14.6 % (11.5-14.5)
[2023-02-11 18:13] VITALS: BP 136/93; PULSE 69; RESP 20; O2SAT 98
[2023-02-11 18:23] LABS: Alanine Aminotransferase 17 U/L (6-35); Albumin Level 3.4 g/dL (3.5-5.1); Alkaline Phosphatase 55 U/L (38-126); Anion Gap 0 mmol/L (8-16); Aspartate Amino Transferase 21 U/L (14-36); Bilirubin,Total 0.5 mg/dL (0.2-1.3); Blood Urea Nitrogen 17 mg/dL (7-17); Calcium 8.6 mg/dL (8.4-10.2); Carbon Dioxide 29 mmol/L (22-30); Chloride 104 mmol/L (98-107); Creatine Kinase < 20 U/L (30-135); Estimated CRCL calculation 63 ml/min; Estimated Glomerular Filt Rate > 60; Glucose 109 mg/dL (65-110); Potassium 4.2 mmol/L (3.4-5.0); Sodium 133 mmol/L (137-145)
--- NOTE | 2023-02-11 18:25 | ED.WEAKNESS ---
HPI - Weakness General Chief complaint: Weakness <Tequila Hale PA-C - Last Filed: 02/12/23 09:30> Stated complaint: weakness, fall out of bed <Tequila Hale PA-C - Last Filed: 02/12/23 09:30> Source: patient <Tequila Hale PA-C - Last Filed: 02/12/23 09:30> Mode of arrival: EMS <Tequila Hale PA-C - Last Filed: 02/12/23 09:30> Limitations: other (poor historian) <Tequila Hale PA-C - Last Filed: 02/12/23 09:30> History of Present Illness HPI Narrative: This is a 72 year old female that presents to the ER after a fall today. Reports she was sitting on the end of her bed and fell off of her bed. EMS reported they were unsure how long she had been on the floor. She reports back pain and right foot pain. Otherwise has no focal complaints. She is unsure if she hit her head. She did not lose consciousness. Reports history of a brain tumor for which she follows with a doctor at [facility]. Denies fever, chest pain, shortness of breath, abdominal pain, vomiting, or dysuria. <Tequila Hale PA-C - Last Filed: 02/12/23 09:30> Related Data Home medications: Home Medications Medication Instructions Recorded Confirmed rivaroxaban 20 mg tablet (Xarelto) 20 mg PO DAILY 03/10/20 02/17/23 lisinopril 20 mg tablet 20 mg PO DAILY 03/30/21 02/17/23 atorvastatin 20 mg tablet 20 mg PO QHS 10/30/22 02/17/23 cholecalciferol (vitamin D3) 50 50 mcg PO DAILY 10/30/22 02/17/23 mcg (2,000 unit) capsule metoprolol tartrate 100 mg tablet 100 mg PO BID 10/30/22 02/17/23 vitamin E mixed 1,000 unit capsule 1,000 unit PO DAILY 10/30/22 02/17/23 [id number]-[id number] 8 mg-folic 400 1 tablet PO DAILY 01/01/23 02/17/23 mcg-K 50 mcg-lutein 300 mcg tablet (Centrum Silver Women) <Tequila Hale PA-C - Last Filed: 02/12/23 09:30> Allergies/Adverse reactions: Allergies Allergy/AdvReac Type Severity Reaction Status Date / Time No Known Allergies Allergy Verified 02/17/23 13:21 <Tequila Hale PA-C - Last Filed: 02/12/23 09:30> Review of Systems Review of Systems: CONSTITUTIONAL: Denies fever EYES: Denies visual changes CARDIOVASCULAR: Denies chest pain RESPIRATORY: Denies dyspnea. GASTROINTESTINAL: Denies abdominal pain, nausea, vomiting GENITOURINARY: Denies dysuria MUSCULOSKELETAL: Reports back pain, joint pain, and myalgia. NEUROLOGIC: Reports generalized weakness. Denies numbness <Tequila Hale PA-C - Last Filed: 02/12/23 09:30> All systems reviewed & are unremarkable except as noted in HPI and below <Tequila Hale PA-C - Last Filed: 02/12/23 09:30> [facility] Past Medical History Medical History: Medical History Age-related osteoporosis without current pathological fracture Atrial fibrillation with rapid ventricular response Atrial fibrillation, chronic Elbow fracture, left (~05/2021) Essential hypertension Fall Hyperlipidemia, unspecified Hypothyroidism, unspecified Meningioma, cerebral Positive colorectal cancer screening using Cologuard test S/P angiogram of extremity Right femoral area SVT (supraventricular tachycardia) <Tequila Hale PA-C - Last Filed: 02/12/23 09:30> Surgical History Surgical History: Surgical History H/O: hysterectomy History of cardiac radiofrequency ablation (~03/2021) for SVT History of elbow surgery (~05/2021) ORIF left elbow fracture <Tequila Hale PA-C - Last Filed: 02/12/23 09:30> Family History Family History: Family History Mother Family history of malignant neoplasm of breast Other Family history of cardiovascular disease Hypertension <CARTER Gutierrez Last Filed: 02/12/23 09:30> Social History Social History: Social History Social History: The patient is .
[2023-02-11] MEDS: ACETAMINOPHEN 500 MG TABLET 1000 MG PO (18:38)
[2023-02-11 18:57] LABS: Appearance Urine Clear (Clear); Bacteria Urine None Seen /hpf; Bilirubin Urine Negative (Negative); Blood Urine Negative (Negative); Color Urine Yellow (Yellow); Glucose Urine UA Negative (Negative); Ketones Urine Negative (Negative); Leukocyte Esterase Ur Negative LEU/UL (Negative); Nitrate Urine Negative (Negative); Non Pathogenic Casts 0-2; Protein Urine Trace mg/dL (Negative); RBC Urine 0-2 /hpf (0-2); Specific Grav Ur 1.009 (1.001-1.035); Squamous Epithelial Cell Urine None seen /hpf (Few); Urobilinogen Urine 0.2 mg/dL (<2.0); WBC Urine 0-5 /hpf; pH Urine 7.5 (5.0-9.0)
[2023-02-11 19:23] LABS: Add Urine Microscopic? YES
[2023-02-11 21:34] VITALS: BP 138/95; PULSE 70; RESP 19; O2SAT 99
--- NOTE | 2023-02-11 21:53 | PM.IMHP ---
H&P: HPI History of Present Illness Date/Time: 02/11/23 21:53 Chief Complaint: Fall Narrative: this is a 72-year-old female with past medical history significant for osteoporosis, meningioma, hypertension, chronic atrial fibrillation. patient was found down at home after she slipped off her bed I was not able to get back up patient denies any loss of consciousness she was brought to the emergency room for evaluation after she called EMS. preliminary workup was significant for CT of the head was reported as: EXAMINATION: CT brain wo con DATE: 02/11/2023 18:04 INDICATION: Headache. Fall. Weakness. TECHNIQUE: Computed tomography (CT) of the head was performed without intravenous contrast. The mA was adjusted according to patient size. Iterative reconstruction technique was employed. The dose-length product was 1362.00 mGy-cm. COMPARISON: Head CT 01/01/2023, 10/05/21, CTA 09/29/20 FINDINGS: There is a 2.5 x 2.0 x 2.9 cm mass in right sylvian fissure. There is a large distribution of vasogenic edema in right cerebral hemisphere. There is a small old infarct in right cerebellum. There is no acute ischemic infarct or intracranial hemorrhage. There is 10 mm leftward midline shift at the foramen of Monro. Right-sided uncal herniation is noted. The orbits are normal. There is mild mucosal thickening in the ethmoid sinuses. The mastoid air cells are normal. IMPRESSION: 1. 2.9 cm mass in right sylvian fissure, increased from 2.6 cm on 10/05/21, consistent with a meningioma. 2. Extensive right-sided cerebral vasogenic edema with leftward midline shift and right-sided uncal herniation, present on 01/01/23, but new from 10/05/21. Review of Systems Review of Systems: fall, generalized weakness. Constitutional: Constitutional: Denies chills, Denies fatigue, Denies fever(s), Denies frequent falls, Denies headache(s), Denies malaise, Denies night sweats and Reports weakness Eyes: Eyes: Denies change in vision ENT: Denies dysphagia, Denies vertigo, Denies dizziness and Denies odynophagia Cardiovascular: Cardiovascular: Denies chest pain, Denies syncope, Denies leg edema, Denies radiating jaw, neck or arm pain and Denies palpitations Respiratory: Respiratory: Denies chest congestion, Denies cough and Denies excessive phlegm production Gastrointestinal: Gastrointestinal: Denies dyspepsia, Denies heartburn, Denies diarrhea, Denies nausea and Denies vomiting Genitourinary: Genitourinary: Denies dysuria and Denies flank pain Musculoskeletal: Musculoskeletal: Reports muscle weakness Integumentary/Breasts: Skin/Breast: Denies rash Neurologic: Denies vertigo, Denies dizziness, Denies focal weakness, Denies Sensory deficit (Neuro), Denies tingling, Denies paresthesias, Denies tremor(s), Denies disequilibrium and Reports weakness Psychiatric: Psychiatric: Reports no additional psychiatric complaints and Reports as per HPI Endocrine: Endocrine: Denies cold intolerance, Denies flushing, Denies heat intolerance, Denies polyphagia, Denies polydipsia and Denies palpitations PMFSH Past Medical History Medical History Age-related osteoporosis without current pathological fracture Atrial fibrillation with rapid ventricular response Atrial fibrillation, chronic Elbow fracture, left (~05/2021) Essential hypertension Fall Hyperlipidemia, unspecified Hypothyroidism, unspecified Meningioma, cerebral Positive colorectal cancer screening using Cologuard test S/P angiogram of extremity Right femoral area SVT (supraventricular tachycardia) Surgical History Surgical History H/O: hysterectomy History of cardiac radiofrequency ablation (~03/2021) for SVT History of elbow surgery (~05/2021) ORIF left elbow fracture Family History Family History Mother Family history of
[2023-02-11 23:30] VITALS: BP 142/94; PULSE 77; RESP 18; TEMP 37; O2SAT 100; BMI 28.1
[2023-02-11 23:38] VITALS: BMI 28.1
--- NOTE | 2023-02-11 23:54 | ADMGEN ---
This patient, Jane Pereyra, was admitted to 3 [facility] Surg Room 303-01. Patient/family oriented to hospital policies and general routines including ID bracelet, bed and alarms, visiting hours, pain management, procedures, bathroom and other care routines, personal items, smoking policy, room service/diet, and visiting hours. Information on how to activate the Rapid Response Team has been discussed. Patient/Family are encouraged to report perceived risks to care and to ask questions if they do not understand what they are told or what they should do.
[2023-02-12 06:00] VITALS: BP 143/91; PULSE 92; RESP 19; TEMP 36.6; O2SAT 98
[2023-02-12] MEDS: DEXAMETHASONE SOD PHOS INJ 4 MG/ML VIAL IV PUSH ×4 (06:12→23:36)
--- NOTE | 2023-02-12 10:42 | PM.IMPN ---
Progress Note: A&P Assessment and Plan (1) Fall: Qualifiers: Encounter type: initial encounter Qualified Code(s): W19.XXXA - Unspecified fall, initial encounter Code(s): W19.XXXA - Unspecified fall, initial encounter Status: Acute Assessment and Plan: admit to regular medical floor physical therapy and occupational therapy evaluation fall precautions (2) Weakness: Code(s): R53.1 - Weakness Status: Acute Assessment and Plan: likely secondary to the use of steroids and chronic illness PT OT consult (3) Meningioma: Code(s): D32.9 - Benign neoplasm of meninges, unspecified Status: Acute Assessment and Plan: patient goes for treatment and to outside hospital on the cement as on for vasogenic edema. (4) Vasogenic cerebral edema: Code(s): G93.6 - Cerebral edema Status: Acute Assessment and Plan: unchanged according to CT comparison continue to monitor (5) Atrial fibrillation, chronic: Code(s): I48.20 - Chronic atrial fibrillation, unspecified Status: Chronic Assessment and Plan: rate control and anticoagulated Subjective Date/time seen: 02/12/23 10:42 Interval history: No complaints Exam Narrative: Patient is laying in a stretcher Const: General: comfortable, no acute distress, well developed, alert, awake and average body habitus Nutritional Appearance: average body habitus Orientation/consciousness: patient oriented x3 HENMT: Head: normal to inspection, normocephalic and atraumatic Ears: hearing grossly normal bilaterally Face/Nose/Sinus: normal facial exam Face and sinus: normal facial exam Eyes: General: appearance normal, both eyes and all related structures Pupils: Equal, round and reactive pupils present EOM: EOMs intact bilaterally Neck: Neck: full ROM, no lymphadenopathy and no JVD Thyroid: thyroid normal Lymphatic: no lymphadenopathy noted Resp: Effort & Inspection: normal respiratory effort and able to speak in complete sentences Auscultation: clear to auscultation bilaterally Cardio: Jugular venous distension: no JVD Rate: regular rate Rhythm: regular rhythm Heart sounds: S1 normal heart sound present and S2 normal heart sound present : General: Yes deferred Skin: Rashes: no rashes Wounds: no wounds Neuro: General: patient oriented x3, CN's II-XI intact bilaterally and Unable to assess gait Cranial nerves: Yes CN's II-XII intact bilaterally and Yes Equal, round and reactive pupils present Cognition (Neuro): normal cognition Speech: normal speech Gait exam (Neuro): Unable to assess gait Motor exam (neuro): 5/5 motor strength present throughout Sensory Exam: No Sensory deficit (Neuro) Extrem: General: normal to inspection, full ROM, no joint enlargement and no pedal edema Objective Data Vital Signs Vital Signs: Vital Signs - 24 hr 02/11/23 17:21 02/11/23 18:13 02/11/23 18:13 Temperature 97.2 F L Pulse Rate 62 69 69 Respiratory Rate 22 H 20 Blood Pressure 128/85 136/93 H Pulse Oximetry 98 98 Oxygen Delivery Room Air 02/11/23 21:34 02/11/23 23:30 02/12/23 06:00 Temperature 98.6 F 97.9 F Pulse Rate 70 77 92 Respiratory Rate 19 18 19 Blood Pressure 138/95 H 142/94 H 143/91 H Pulse Oximetry 99 100 98 Oxygen Delivery 02/12/23 08:00 Temperature Pulse Rate Respiratory Rate Blood Pressure Pulse Oximetry Oxygen Delivery Room Air Intake/Output Intake/Output: Intake & Output 02/09/23 02/10/23 02/11/23 02/12/23 23:59 23:59 23:59 23:59 Intake Total 440 Output Total 400 Balance 40 Meds/Results Medications: Active Medications Generic Name Dose Route Start Last Admin Trade Name Freq PRN Reason Stop Dose Admin Dexamethasone Sodium Phosphate 4 mg 02/12/23 06:02 02/12/23 06:12 Dexamethasone Sod Phos Inj 4 Mg/Ml Vial IV PUSH 4 mg Q6HR JYOTI Administration Radiology Results: ITS Impressio
[2023-02-12 11:26] VITALS: PULSE 86
[2023-02-12] MEDS: CHOLECALCIFEROL 1,000 UNITS TABLET 2000 UNITS PO (11:26)
[2023-02-12] MEDS: LEVOTHYROXINE SODIUM 75 MCG TABLET PO (11:26)
[2023-02-12] MEDS: METOPROLOL TARTRATE 50 MG TAB 100 MG PO ×2 (11:26→20:43)
[2023-02-12] MEDS: THERAPEUTIC MULTIVITAMINS/MINERALS TAB (*BKC) 1 TABLET PO (11:26)
[2023-02-12] MEDS: lisinopriL 20 MG TABLET PO (11:26)
[2023-02-12 14:00] VITALS: BP 123/87; PULSE 85; RESP 20; TEMP 37; O2SAT 98
--- NOTE | 2023-02-12 15:11 | PCCCNOTE ---
On 02/12/23, the student, [Cathie Hoover ], provided care and completed [facility] documentation on this patient. I have reviewed the student's documentation and agree with the findings.
[2023-02-12] MEDS: RIVAROXABAN 20 MG TABLET PO (17:29)
[2023-02-12 19:39] VITALS: BP 116/80; PULSE 95; RESP 18; TEMP 37.5; O2SAT 100
[2023-02-12 20:43] VITALS: PULSE 78
[2023-02-12] MEDS: ATORVASTATIN 20 MG TABLET PO (20:44)
[2023-02-13] MEDS: DEXAMETHASONE SOD PHOS INJ 4 MG/ML VIAL IV PUSH (05:41)
[2023-02-13] MEDS: LEVOTHYROXINE SODIUM 75 MCG TABLET PO (05:41)
[2023-02-13 06:00] VITALS: BP 141/89; PULSE 81; RESP 18; TEMP 37; O2SAT 99
[2023-02-13 09:04] VITALS: PULSE 80
[2023-02-13] MEDS: METOPROLOL TARTRATE 50 MG TAB 100 MG PO (09:04)
[2023-02-13] MEDS: VITAMIN E 1,000 UNIT CAPSULE 1000 UNIT PO (09:04)
[2023-02-13] MEDS: THERAPEUTIC MULTIVITAMINS/MINERALS TAB (*BKC) 1 TABLET PO (09:04)
[2023-02-13] MEDS: CHOLECALCIFEROL 1,000 UNITS TABLET 2000 UNITS PO (09:05)
[2023-02-13] MEDS: lisinopriL 20 MG TABLET PO (09:05)
--- NOTE | 2023-02-13 11:07 | PM.DS ---
DS: Admitting Diagnosis Discharge Date February 13, 2023 Admitting Diagnosis Fall, weakness DS: Discharge Diagnosis Discharge Diagnosis (1) Fall: Qualifiers: Encounter type: initial encounter Qualified Code(s): W19.XXXA - Unspecified fall, initial encounter Code(s): W19.XXXA - Unspecified fall, initial encounter Status: Acute Assessment and Plan: admit to regular medical floor physical therapy and occupational therapy evaluation fall precautions (2) Weakness: Code(s): R53.1 - Weakness Status: Acute Assessment and Plan: likely secondary to the use of steroids and chronic illness PT OT consult (3) Meningioma: Code(s): D32.9 - Benign neoplasm of meninges, unspecified Status: Acute Assessment and Plan: patient goes for treatment and to outside hospital on the cement as on for vasogenic edema. (4) Vasogenic cerebral edema: Code(s): G93.6 - Cerebral edema Status: Acute Assessment and Plan: unchanged according to CT comparison continue to monitor (5) Atrial fibrillation, chronic: Code(s): I48.20 - Chronic atrial fibrillation, unspecified Status: Chronic Assessment and Plan: rate control and anticoagulated DS: Summary Hospital Course Hospital Course: Patient is a 72-year-old female who came in with fall and generalized weakness. She does have a history of chronic steroid exposure. She is on steroids for chronic meningioma which she is following with a neurosurgeon for. She has no focal neurological deficits. Patient is ambulating in the halls and doing her normal activities. Physical therapy recommended home PT which will be set up on discharge. Otherwise patient needs follow-up with her neurosurgeon. One week of steroids were prescribed. Time Spent with Patient Time attestation: Total time spent providing and/or coordinating discharge services: Exam Narrative: Patient is laying in a stretcher Const: General: comfortable, no acute distress, well developed, alert, awake and average body habitus Nutritional Appearance: average body habitus Orientation/consciousness: patient oriented x3 HENMT: Head: normal to inspection, normocephalic and atraumatic Ears: hearing grossly normal bilaterally Face/Nose/Sinus: normal facial exam Face and sinus: normal facial exam Eyes: General: appearance normal, both eyes and all related structures Pupils: Equal, round and reactive pupils present EOM: EOMs intact bilaterally Neck: Neck: full ROM, no lymphadenopathy and no JVD Thyroid: thyroid normal Lymphatic: no lymphadenopathy noted Resp: Effort & Inspection: normal respiratory effort and able to speak in complete sentences Auscultation: clear to auscultation bilaterally Cardio: Jugular venous distension: no JVD Rate: regular rate Rhythm: regular rhythm Heart sounds: S1 normal heart sound present and S2 normal heart sound present : General: Yes deferred Skin: Rashes: no rashes Wounds: no wounds Neuro: General: patient oriented x3, CN's II-XI intact bilaterally and Unable to assess gait Cranial nerves: Yes CN's II-XII intact bilaterally and Yes Equal, round and reactive pupils present Cognition (Neuro): normal cognition Speech: normal speech Gait exam (Neuro): Unable to assess gait Motor exam (neuro): 5/5 motor strength present throughout Sensory Exam: No Sensory deficit (Neuro) Extrem: General: normal to inspection, full ROM, no joint enlargement and no pedal edema Discharge Plan Discharge Attending physician on discharge: Carlitos Cox Consulting providers: Tequila Hale Discharging Clinician: Carlitos Cox Patient Disposition: Home, Self-Care Activity: as tolerated Diet: as tolerated Patient Instructions: Antibiotic Form, Fall Prevention (DC) Stand Alone Forms: General Discharge Information Follow-up/Referrals: Quoc Johansen MD [Primary Care Pro
== END 2023-02-13 13:03 | disposition home health service (06) ==
LOC: ANHED 18:42 → ANH3MEDSUR 23:19
PROVIDERS: Admitting Provider Internal Medicine; Emergency Provider Physician Assistant; PCP Family Medicine; Visit Provider Chiropractor
DX: M54.9 Dorsalgia, unspecified (principal); M79.671 Pain in right foot; W06.XXXA Fall from bed, initial encounter; D32.0 Benign neoplasm of cerebral meninges; I48.20 Chronic atrial fibrillation, unspecified; G93.6 Cerebral edema; I10 Essential (primary) hypertension; M47.812 Spondylosis without myelopathy or radiculopathy, cervical region; M47.815 Spondylosis without myelopathy or radiculopathy, thoracolumbar region; I77.819 Aortic ectasia, unspecified site; M19.071 Primary osteoarthritis, right ankle and foot; R94.31 Abnormal electrocardiogram [ECG] [EKG]; E78.5 Hyperlipidemia, unspecified; E03.9 Hypothyroidism, unspecified; I47.1 Supraventricular tachycardia; M79.10 Myalgia, unspecified site; M81.0 Age-related osteoporosis without current pathological fracture; Z79.01 Long term (current) use of anticoagulants; Z79.899 Other long term (current) drug therapy
CPT/HCPCS: 36415; 70450; 71046; 72125; 72128; 72131; 73630; 80053; 81001; 82550; 85025; 93005; 96374; 96376; 97110; 97116; 97161; 97165; 99285; A9270; G0378; J1100

== ENCOUNTER 2023-02-26 19:21 | Emergency (ER) | payer MEDICARE, SELFPAY ==
[2023-02-26] VITALS (60 sets, daily range): BP systolic 110–178; BP diastolic 83–120; PULSE 100–129; RESP 14–23; TEMP 37; O2SAT 100
--- NOTE | ~2023-02-26 | CT_ITS ---
EXAMINATION: CT brain wo con DATE: 02/26/2023 20:17 INDICATION: Contusion to the head. Head injury. TECHNIQUE: Computed tomography (CT) of the head was performed without intravenous contrast. The dose- length product was 681.00 mGy-cm. Automated exposure control and iterative reconstruction technique w ere employed. COMPARISON: CT dated 02/11/2023 FINDINGS: Large mass right sylvian fissure measuring approximately 2.9 cm, unchanged. Large amount of vasogenic edema in the right cerebral hemisphere. There is effacement of the overlying cortical sulc i with midline shift to the left. There is right-sided uncal herniation. No acute hemorrhage. Paranas al sinuses and mastoids are pneumatized. No depressed skull fractures. IMPRESSION: 1. No acute intracranial abnormality. Stable large mass measuring 2.9 cm centered in the right blake n fissure. Extensive right hemispheric vasogenic edema with effacement of the overlying sulci and mid line shift to the left measuring approximately 10 mm. There is right uncal herniation. Findings not s ignificantly changed from prior study. Reviewed, dictated and finalized at location A. IMPRESSION: 1. No acute intracranial abnormality. Stable large mass measuring 2.9 cm center ed in the right sylvian fissure. Extensive right hemispheric vasogenic edema wi th effacement of the overlying sulci and midline shift to the left measuring ap proximately 10 mm. There is right uncal herniation. Findings not significantly changed from prior study.
--- NOTE | ~2023-02-26 | XR_ITS ---
XR chest ET placement 02/26/2023 19:48 Indication: Endotracheal tube placement. Respiratory distress. Procedure: Portable chest Comparison: Comparison to multiple prior studies sequentially, with oldest reviewed study dated 10/29. Findings: Endotracheal tube tip 4 cm above the ellen. Borderline heart size. There is atherosclerosi s and ectasia of the aorta. No focal air space disease, pulmonary edema, pleural effusion or suspecte d pneumothorax. No acute osseous abnormality. Impression: 1: Endotracheal tube tip 4 cm above the ellen. 2: No acute cardiopulmonary disease. Reviewed, dictated and finalized at location A. Impression: 1: Endotracheal tube tip 4 cm above the ellen. 2: No acute cardiopulmonary disease.
--- NOTE | ~2023-02-26 | CT_ITS ---
EXAMINATION: CT cervical spine wo con DATE: 02/26/2023 20:20 INDICATION: Trauma. TECHNIQUE: Computed tomography (CT) of the was performed without intravenous contrast. The dose-lengt h product was 363.99 mGy-cm. Automated exposure control and iterative reconstruction technique were e mployed. COMPARISON: None FINDINGS: No acute fracture or traumatic malalignment. Vertebral body heights are maintained. There i s degenerative anterolisthesis at C4-5 and C5-6. No evidence for perched facet. Odontoid process is n ormal. Craniovertebral junction is normal. There are coarse peripheral interstitial changes in the melissa ng apices which may reflect mild edema. There is apical pleural thickening/scarring. IMPRESSION: 1. No acute fracture. Reviewed, dictated and finalized at location A. IMPRESSION: 1. No acute fracture.
--- NOTE | ~2023-02-26 | CT_ITS ---
EXAMINATION: CT chst ab pel stephanie bahena w DATE: 02/26/2023 20:26 INDICATION: Polytrauma. TECHNIQUE: Computed tomography (CT) of the chest, abdomen, pelvis, thoracic spine, lumbar spine with 100 cc Omnipaque 350 was performed without intravenous contrast. The dose-length product was 1391.19 mGy-cm. Automated exposure control and iterative reconstruction technique were employed. COMPARISON: CT chest and lumbar spine dated 02/11/2023 FINDINGS: There is ectasia of the ascending thoracic aorta measuring 4.9 cm. There is atherosclerosis . Heart size normal. There is interlobular septal thickening bilaterally which may reflect interstiti al edema. No endobronchial lesions. No pneumothorax. Gallbladder is moderately distended. Kimbrough catheter present in the bladder. No free air or free fluid . No acute abnormality of the abdomen or pelvis. No significant vascular abnormality. No lymphadenopa thy. There is an acute superior endplate compression fracture of L2 with approximately 15% loss of vertebr al body height. There is disc narrowing at L3-4 through L5-S1. There is mild levocurvature of the tho racic spine with kyphosis. Mild chronic anterior wedging of T6, T7 and T9. There is a hemangioma in T 5. There is disc height narrowing at T5-6 and T6-7. There is multilevel facet arthritis. IMPRESSION: 1. Acute mild superior endplate compression fracture of L2. 2: Stable ascending thoracic aortic aneurysm measuring 4.9 cm. 3: Mild bilateral interlobular septal thickening, suspicious for mild edema. Reviewed, dictated and finalized at location A.
[2023-02-26 19:29] LABS: Glucose Point of Care 176 mg/dl (65-105)
--- NOTE | 2023-02-26 19:29 | PC.NURSE ---
1930 20 mg etomidate IVP given vorb erp levi 1931 100 mg rocuronium given ivp vorb erp levi pt. intubated by erp Levi w/ 7.5 ET tube measuring 22 at the lip. positive color change noted on CO@ detector as well as bilat. breath sounds heard by erp. equal chest rise and fall noted as well.
[2023-02-26] MEDS: PROPOFOL IV EMULSION 100 ML 2.25 MG IV CONT (19:30)
--- NOTE | 2023-02-26 19:38 | ECG_ITS ---
Measurements Intervals [place] Rate: 122 P: -18 TN: 222 QRS: 19 QRSD: 90 T: 113 QT: 290 QTc: 414 Interpretive Statements SINUS TACHYCARDIA WITH FIRST DEGREE AV BLOCK LEFT VENTRICULAR HYPERTROPHY WITH ST-T CHANGE CONSIDER INFERIOR INFARCT, AGE INDETERMINATE ST-T WAVE ABNORMALITY IN HIGH LATERAL LEADS- CONSIDER ISCHEMIA ABNORMAL ECG COMPARED TO ECG 02/11/2023 17:26:18 SINUS TACHYCARDIA NOW PRESENT FIRST DEGREE AV BLOCK NOW PRESENT Electronically Signed On 02-26-2023 21:16:43 CDT by Black Zeng D.O.
--- NOTE | 2023-02-26 19:46 | PC.NURSE ---
1920 1.5 g keppra given iv hung to gravity 1929 keppra infused.
[2023-02-26] MEDS: SODIUM CHLORIDE 0.9% IV 1,000 ML 999 ML IV CONT (19:51)
[2023-02-26 19:56] LABS: Hemoglobin 14.8 g/dL (12.0-15.0); Mean Corpuscular HGB Conc 31.5 g/dl (32-36); Mean Corpuscular Hemoglobin 31.2 pg (26-34); Mean Corpuscular Volume 98.9 fl (80-100); Mean Platelet Volume 9.7 fl (7.4-10.4); Platelet Count Result 308 k/mm3 (150-375); Red Blood Count 4.75 M/mm3 (4.2-5.4); Red Cell Distribution Width 14.5 % (11.5-14.5); White Blood Count 24.6 K/mm3 (4.5-10.0)
[2023-02-26 20:08] LABS: INR 1.2; Prothrombin Time 16.3 Seconds (11.1-14.7)
[2023-02-26 20:09] LABS: Acetaminophen < 10 ug/mL (10-30); Salicylate < 1.0 mg/dL (2-20)
[2023-02-26 20:24] LABS: Band Neutrophils Percent 1 % (0-6); Hypochromasia 1+ (NORMAL); Lymphocytes Absolute Manual 0.98 K/mm3 (1.1-4.5); Monocytes Absolute Manual 1.96 K/mm3 (0.1-0.90); Monocytes Percent Manual 8 % (3-9); Neutrophils Absolute Manual 21.64 K/mm3 (1.7-7.2); Neutrophils Percent Manual 87 % (46-73); Platelet Estimate Adequate (Adequate); Schistocytes None Seen (NORMAL); Total Cells Counted 100
--- NOTE | 2023-02-26 20:25 | ED.FALL ---
HPI - Fall General Chief Complaint: Fall Stated Complaint: stroke symptoms History of Present Illness HPI Narrative: This is a 72-year-old female with prior history of brain aneurysm, aortic aneurysm on Xarelto, who is brought in by EMS from home after being found down. EMS reports family members, found the patient wedged between the bed and the wall. At the time she was alert and oriented x3 and complained of left-sided pain. In route the patient began seizing. EMS reports patient's blood sugar was in the 170s. Vital signs are otherwise within normal limits in route. Related Data Home Medications Medication Instructions Recorded Confirmed rivaroxaban 20 mg tablet (Xarelto) 20 mg PO DAILY 03/10/20 02/17/23 lisinopril 20 mg tablet 20 mg PO DAILY 03/30/21 02/17/23 atorvastatin 20 mg tablet 20 mg PO QHS 10/30/22 02/17/23 cholecalciferol (vitamin D3) 50 50 mcg PO DAILY 10/30/22 02/17/23 mcg (2,000 unit) capsule metoprolol tartrate 100 mg tablet 100 mg PO BID 10/30/22 02/17/23 vitamin E mixed 1,000 unit capsule 1,000 unit PO DAILY 10/30/22 02/17/23 xngywvav-[id number]-[id number] 8 mg-folic 400 1 tablet PO DAILY 01/01/23 02/17/23 mcg-K 50 mcg-lutein 300 mcg tablet (Centrum Silver Women) Allergies Allergy/AdvReac Type Severity Reaction Status Date / Time No Known Allergies Allergy Verified 02/17/23 13:21 Review of Systems Review of Systems: Unable obtain review of systems due to patient's altered mental status [facility] Past Medical History Medical History Age-related osteoporosis without current pathological fracture Atrial fibrillation with rapid ventricular response Atrial fibrillation, chronic Elbow fracture, left (~05/2021) Essential hypertension Fall Hyperlipidemia, unspecified Hypothyroidism, unspecified Meningioma, cerebral Positive colorectal cancer screening using Cologuard test S/P angiogram of extremity Right femoral area SVT (supraventricular tachycardia) Surgical History Surgical History H/O: hysterectomy History of cardiac radiofrequency ablation (~03/2021) for SVT History of elbow surgery (~05/2021) ORIF left elbow fracture Family History Family History Mother Family history of malignant neoplasm of breast Other Family history of cardiovascular disease Hypertension Social History Social History Social History: The patient is . She has 2 children a son and a daughter. She does not have a durable power senior trial attorney but would appoint her daughter as the power senior trial attorney. The patient denies any alcohol, marijuana, or illicit drugs. 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 Smoking status: Never smoker Second hand tobacco smoke exposure: No Alcohol intake: never Substance use: never Substance use type: does not use Lack of Transportation: No Lack of Food: Never True Current Housing: I Have Housing Concerned About Future Housing: No Difficulty Paying Gas/Electric Bills: No Difficulty Paying for Meds: No Currently Unemployed: No Education: High School Diploma/GED Difficulty w/ Childcare or Family Care: No Gender identity (if verbalized by the patient): Female Sexual Orientation (if Verbalized by the Patient): Straight or Heterosexual Spiritual care concerns: No Exam Narrative: GENERAL: Well-developed, well-nourished, actively seizing HEAD: Normocephalic, ecchymosis noted to the superior left orbit EYES: PERRLA, 2 mm with right gaze preference ENT: Nares clear, no rhinorrhea or epistaxis. Mucous membranes dry. NECK: Supple. No adenopathy or masses. No JVD CHEST: Clear to auscultation. Sonorous breathing pattern. no wheezes rales or rhonchi HEART: Tachycardic with regular rhythm. No murmur
--- NOTE | 2023-02-26 20:27 | PC.NURSE ---
Micky/ notified on trop 0.205 and La 14.0
[2023-02-26 20:30] LABS: Albumin Level 4.8 g/dL (3.5-5.1); Alkaline Phosphatase 70 U/L (38-126); Anion Gap 25 mmol/L (8-16); Aspartate Amino Transferase 60 U/L (14-36); Bilirubin,Total 0.5 mg/dL (0.2-1.3); Blood Urea Nitrogen 23 mg/dL (7-17); Calcium 9.6 mg/dL (8.4-10.2); Carbon Dioxide 15 mmol/L (22-30); Chloride 102 mmol/L (98-107); Estimated CRCL calculation 45 ml/min; Estimated Glomerular Filt Rate > 60; Glucose 210 mg/dL (65-110); Magnesium 2.4 mg/dL (1.6-2.3); Potassium 3.5 mmol/L (3.4-5.0); Sodium 142 mmol/L (137-145); Troponin I 0.205 ng/mL (0.000-0.034)
[2023-02-26 20:32] LABS: Alanine Aminotransferase 50 U/L (6-35)
[2023-02-26 20:39] LABS: Creatine Kinase 1358 U/L (30-135)
[2023-02-26] MEDS: FENTANYL 2,500MCG/NS250ML(*CRX 2,500 MCG/250 ML BAG IV CONT (20:40)
[2023-02-26 20:41] LABS: Triglycerides 117 mg/dL (<150)
[2023-02-26 20:44] LABS: Appearance Urine Clear (Clear); Bacteria Urine None Seen /hpf; Bilirubin Urine Negative (Negative); Blood Urine 3+ (Negative); Color Urine Yellow (Yellow); Glucose Urine UA Trace mg/dL (Negative); Ketones Urine Negative (Negative); Leukocyte Esterase Ur Negative LEU/UL (Negative); Nitrate Urine Negative (Negative); Protein Urine Negative (Negative); RBC Urine 0-2 /hpf (0-2); Squamous Epithelial Cell Urine None seen /hpf (Few); Urobilinogen Urine 0.2 mg/dL (<2.0); WBC Urine 0-5 /hpf; pH Urine 5.5 (5.0-9.0)
[2023-02-26 20:46] LABS: Specific Grav Ur 1.042 (1.001-1.035)
[2023-02-26 20:47] LABS: Add Urine Microscopic? YES
[2023-02-26 21:11] LABS: Amphetamine Screen Urine Negative (Negative); Barbiturate Screen Urine Negative (Negative); Benzodiazepines Screen Urine Positive (Negative); Cannabinoid Screen Urine Negative (Negative); Cocaine Screen Urine Negative (Negative); Methadone Screen Urine Negative (Negative); Opiate Screen Urine Negative (Negative); Phencyclidine Screen Urine Negative (Negative)
[2023-02-26] MEDS: CEFEPIME 2 GM/NS 50 ML 2 GM/50 ML BAG IVPB (21:11)
[2023-02-26] MEDS: levETIRAcetam 1000MG/NACL100ML 1,000 MG/100 ML BAG 400 MG IVPB (21:34)
--- NOTE | 2023-02-26 21:34 | PC.NURSE ---
wiliam w/ Michaela at [facility] transfer center. gave pt. triage info. states no icu beds at this time, pt. is possibly first on the list to be accepted.
--- NOTE | 2023-02-26 21:47 | PC.NURSE ---
Patient's blood pressure was dropping down to 110s/80s. Per Dr. Sims EDP discontinue Fentanyl and Propofol and begin Versed drip on patient
[2023-02-26] MEDS: MIDAZOLAM 100MG/NS 100ML(*CRX) 100 MG/100 ML BAG IV CONT (22:03)
[2023-02-26 22:53] LABS: Reflex Lactic Acid Yes or No Add Lactic
--- NOTE | 2023-02-26 23:00 | PC.NURSE ---
verbal consent via phone w/ pt. daughter Frida it is okay to transfer pt. to [facility]
== END 2023-02-26 23:45 | disposition short-term general hospital (02) ==
PROVIDERS: Emergency Provider Preventive Medicine Aerospace Medicine; PCP Family Medicine
DX: S32.010A Wedge compression fracture of first lumbar vertebra, initial encounter for closed fracture (principal); R56.9 Unspecified convulsions; G93.6 Cerebral edema; R22.0 Localized swelling, mass and lump, head; I10 Essential (primary) hypertension; I48.91 Unspecified atrial fibrillation; E03.9 Hypothyroidism, unspecified; W19.XXXA Unspecified fall, initial encounter
CPT/HCPCS: 31500; 36415; 70450; 71260; 72125; 72129; 72132; 74177; 80053; 80307; 81001; 82550; 82948; 83605; 83735; 84478; 84484; 85025; 85610; 93005; 96361; 96365; 96366; 96367; 96375; 99285; J0692; J1100; J1953; J2250; J2704; J3010; J3370; J7030; L0140; Q9967

== ENCOUNTER 2023-04-22 11:55 | Inpatient (IN) | payer MEDICARE, SELFPAY ==
[2023-04-22] VITALS (15 sets, daily range): BP systolic 94–136; BP diastolic 69–99; PULSE 102–130; RESP 16–33; TEMP 38.3; O2SAT 94–100
--- NOTE | ~2023-04-22 | CT_ITS ---
EXAMINATION: CT abdomen pelvis w con INDICATION: Pain after fall TECHNIQUE: Computed tomographic images of the abdomen and pelvis were obtained after the administrati on of 100 cc of Omnipaque 350 intravenous contrast. The dose-length product (DLP) was 964.40 mGy-cm. Automated exposure control and iterative reconstruction technique were employed. COMPARISON: 02/26/2023 FINDINGS: Minimal dependent atelectasis is present in the lung bases. The heart size is normal. There are multiple healing left-sided rib fractures. There is a small sliding hiatal hernia. The liver, sp altaf, pancreas, and adrenal glands are normal. There is chronic mild distention of the gallbladder. H ypoattenuating lesions in the kidneys, measuring up to 4 mm on the left, are too small to characteriz e but likely represent cysts. The bladder is decompressed by Kimbrough catheter. No pathologically enlarg ed abdominal or pelvic lymph nodes are identified. There is calcified atherosclerosis of the aorta an d many of the other arteries. No free intraperitoneal gas or evidence of bowel obstruction. The appen ryder is normal. A compression fracture of L2 demonstrates slight interval worsening. There is mild br uising of the left anterolateral abdominal wall. IMPRESSION: 1. Multiple healing left-sided rib fractures. 2. Mild bruising of the left anterolateral abdominal wall. 3. Mild interval worsening of an L2 compression fracture. Reviewed, dictated and finalized at location L.
--- NOTE | ~2023-04-22 | CT_ITS ---
Noncontrast CT scan of the cervical spine Technique: Multiple contiguous axial [address] images of the cervical spine were obtained and rec onstructed in 2D sagittal and coronal planes on the acquisition scanner. Dose reduction technique was used on this scan by utilizing automated exposure control, adjustment of the mA and/or kV according to patient size. The dose-length product (DLP) was 271.76 mGy-cm. Clinical History: Pain COMPARISON: 02/26/2023 Findings: No fractures or dislocations. There are mild to moderate facet joint degenerative changes throughout the cervical spine. The intervertebral disc spaces are preserved. No prevertebral soft ti ssue swelling. Impression: No fracture or subluxation of the cervical spine. Reviewed, dictated and finalized at location . Impression: No fracture or subluxation of the cervical spine.
--- NOTE | ~2023-04-22 | XR_ITS ---
Portable chest x-ray Comparison: 02/26/2023 Clinical History: Fever Findings: There is probable central congestive change bilaterally. No pleural effusion or pneumothor ax. Cardiomediastinal silhouette is stable. Bones and soft tissues are unremarkable. Impression: Probable central congestive change bilaterally, left worse than right. Correlate clinically for atypi maureen infection. Reviewed, dictated and finalized at location . Impression: Probable central congestive change bilaterally, left worse than right. Correlat e clinically for atypical infection.
--- NOTE | ~2023-04-22 | CT_ITS ---
EXAMINATION: CT brain wo con DATE: 04/22/2023 13:59 INDICATION: Confusion post and witnessed fall TECHNIQUE: Computed tomography (CT) of the head was performed without intravenous contrast. Sagittal and coronal reconstructions were performed. The mA was adjusted according to patient size. Iterative reconstruction technique was employed. The dose-length product was 681.00 mGy-cm. COMPARISON: head CT dated 02/26/2023 FINDINGS: Left parietal scalp hematoma. No fracture. No acute intracranial hemorrhage, acute infarction or abno rmal extra axial fluid collection. No significant change in a 2.8 x 2.6 x 2.3 cm extra-axial mass elo ng the greater wing of the sphenoid and anterior aspect of the right sylvian fissure. Also without si gnificant interval change is a large region of vasogenic edema extending throughout the majority of t he right cerebral hemisphere. The associated mass effect results in asymmetric effacement of the apollo rity of the fissures at the right cerebral hemisphere and significant asymmetric decreased size of th e right lateral ventricle which is unchanged. There is also unchanged subfalcine and mild right uncal herniation with approximately 9 mm right to left midline shift at the level of the foramen of Shah . Small old infarct at the right cerebellar hemisphere. Mild mucosal thickening in the bilateral ethm oid sinuses. The orbits and mastoid air cells are normal. IMPRESSION: 1. No fracture or acute intracranial process. 2. No significant change in a 2.8 cm extra-axial mass at the anterior right sylvian fissure most like ly representing a meningioma. 3. No significant change in extensive right-sided cerebral vasogenic edema with right-sided uncal her niation and subfalcine herniation with 9 mm right to left midline shift. Reviewed, dictated and finalized at location A. IMPRESSION: 1. No fracture or acute intracranial process. 2. No significant change in a 2.8 cm extra-axial mass at the anterior right madhu vian fissure most likely representing a meningioma. 3. No significant change in extensive right-sided cerebral vasogenic edema with right-sided uncal herniation and subfalcine herniation with 9 mm right to left midline shift.
--- NOTE | 2023-04-22 12:23 | ECG_ITS ---
Measurements Intervals [place] Rate: 121 P: -1 MA: 131 QRS: 11 QRSD: 89 T: 84 QT: 366 QTc: 521 Interpretive Statements SINUS TACHYCARDIA NONSPECIFIC ST & T-WAVE ABNORMALITY- HIGH LATERAL LEADS ABNORMAL ECG COMPARED TO ECG 02/26/2023 19:54:07 NO SIGNIFICANT CHANGES Electronically Signed On 04-22-2023 12:59:36 CDT by Black Zeng D.O.
[2023-04-22] MEDS: SODIUM CHLORIDE 0.9% IV 1,000 ML 999 ML (12:36)
[2023-04-22 12:53] LABS: Basophils Percent Auto 0.2 % (0.2-1.2); Eosinophils Percent Auto 0.1 % (0-4.4); Hematocrit 41.1 % (37.0-47.0); Hemoglobin 13.2 g/dL (12.0-15.0); Immature Granulocyte Absolute 0.13 K/mm3 (0.00-0.031); Immature Granulocyte Percent A 0.8 % (0-0.5); Lymphocytes Absolute Auto 0.85 K/mm3 (0.9-3.2); Lymphocytes Percent Auto 5.3 % (18.3-44.2); Mean Corpuscular HGB Conc 32.1 g/dl (32-36); Mean Corpuscular Hemoglobin 30.7 pg (26-34); Mean Corpuscular Volume 95.6 fl (80-100); Mean Platelet Volume 9.1 fl (7.4-10.4); Monocytes Absolute Auto 1.2 K/mm3 (0.1-0.6); Monocytes Percent Auto 7.6 % (2.6-8.5); Neutrophils Absolute Auto 13.9 K/mm3 (1.3-6.7); Platelet Count Result 208 k/mm3 (150-375); Red Cell Distribution Width 15.1 % (11.5-14.5); White Blood Count 16.1 K/mm3 (4.5-10.0)
[2023-04-22 13:03] LABS: Alanine Aminotransferase 28 U/L (6-35); Albumin Level 3.4 g/dL (3.5-5.1); Alkaline Phosphatase 64 U/L (38-126); Anion Gap 8 mmol/L (8-16); Aspartate Amino Transferase 40 U/L (14-36); Bilirubin,Total 1.1 mg/dL (0.2-1.3); Blood Urea Nitrogen 20 mg/dL (7-17); Calcium 8.4 mg/dL (8.4-10.2); Carbon Dioxide 29 mmol/L (22-30); Chloride 100 mmol/L (98-107); Estimated Glomerular Filt Rate > 60; Glucose 140 mg/dL (65-110); Potassium 3.3 mmol/L (3.4-5.0); Sodium 137 mmol/L (137-145)
[2023-04-22 13:40] LABS: Appearance Urine Cloudy (Clear); Bacteria Urine None Seen /hpf; Bilirubin Urine 2+ (Negative); Blood Urine Negative (Negative); Color Urine Dark Yellow (Yellow); Glucose Urine UA Negative (Negative); Ketones Urine 2+ mg/dL (Negative); Leukocyte Esterase Ur Negative LEU/UL (Negative); Nitrate Urine Negative (Negative); Non Pathogenic Casts 0-2; Protein Urine 1+ mg/dL (Negative); Specific Grav Ur 1.024 (1.001-1.035); Squamous Epithelial Cell Urine None seen /hpf (Few); WBC Urine 0-5 /hpf; pH Urine 6.5 (5.0-9.0)
[2023-04-22 13:44] LABS: Lactic Acid Reflex 1.4 mmol/L (0.7-2.0)
[2023-04-22 13:47] LABS: INR 1.1; Prothrombin Time 14.4 Seconds (11.1-14.7)
[2023-04-22 13:48] LABS: Partial Thromboplastin Time 27.3 SECONDS (22.3-36.8)
[2023-04-22 14:06] LABS: Add Urine Microscopic? YES
[2023-04-22 14:10] LABS: Influenza A QL RT-PCR Negative (Negative); Influenza B QL RT-PCR Negative (Negative); SARS-CoV-2 RNA PCR Negative (Negative)
[2023-04-22 14:13] LABS: CRP 7.3 mg/dL (<1.0); Creatine Kinase 295 U/L (30-135)
[2023-04-22] MEDS: ACETAMINOPHEN 500 MG TABLET 1000 MG PO (14:22)
--- NOTE | 2023-04-22 14:29 | ED.FALL ---
HPI - Fall General Chief Complaint: Fall Stated Complaint: fall - rapid heart rate Time Seen by Provider: 04/22/23 12:07 Source: patient, EMS, RN notes reviewed and old records reviewed Mode of arrival: EMS Limitations: clinical condition History of Present Illness HPI Narrative: This is a 72 year old female with history of brain aneurysm, brain mass, chronic vasogenic edema and herniation who presents from home for evaluation of a fall. IT is reported that patient was last seen on , and today her funeral home associate found patient on the floor . PAtient's clothes were soiled . Patient is oriented to person, place. Patient reports that she did not fall and her feet were on the ground. She does appear confused at times. Nursing reports they cleaned patient and she had abrasion to her shoulder. She denies chest pain, shortnes of breath, nausea, vomiting, dizziness, headache. Related Data Home Medications Medication Instructions Recorded Confirmed rivaroxaban 20 mg tablet (Xarelto) 20 mg PO DAILY 03/10/20 02/17/23 lisinopril 20 mg tablet 20 mg PO DAILY 03/30/21 02/17/23 atorvastatin 20 mg tablet 20 mg PO QHS 10/30/22 02/17/23 cholecalciferol (vitamin D3) 50 50 mcg PO DAILY 10/30/22 02/17/23 mcg (2,000 unit) capsule metoprolol tartrate 100 mg tablet 100 mg PO BID 10/30/22 02/17/23 vitamin E mixed 1,000 unit capsule 1,000 unit PO DAILY 10/30/22 02/17/23 jrgnykeh-oish-tjoh 8 mg-folic 400 1 tablet PO DAILY 01/01/23 02/17/23 mcg-K 50 mcg-lutein 300 mcg tablet (Centrum Silver Women) Allergies Allergy/AdvReac Type Severity Reaction Status Date / Time No Known Allergies Allergy Verified 04/22/23 12:22 Review of Systems Review of Systems: ROS unobtainable: Yes unobtainable due to medical condition PMFSH Past Medical History Medical History Age-related osteoporosis without current pathological fracture Atrial fibrillation with rapid ventricular response Atrial fibrillation, chronic Elbow fracture, left (~05/2021) Essential hypertension Fall Hyperlipidemia, unspecified Hypothyroidism, unspecified Meningioma, cerebral Positive colorectal cancer screening using Cologuard test S/P angiogram of extremity Right femoral area SVT (supraventricular tachycardia) Surgical History Surgical History H/O: hysterectomy History of cardiac radiofrequency ablation (~03/2021) for SVT History of elbow surgery (~05/2021) ORIF left elbow fracture Family History Family History Mother Family history of malignant neoplasm of breast Other Family history of cardiovascular disease Hypertension Social History Social History Social History: The patient is . She has 2 children a son and a daughter. She does not have a durable power bankruptcy attorney but would appoint her daughter as the power bankruptcy attorney. The patient denies any alcohol, marijuana, or illicit drugs. 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 Smoking status: Never smoker Second hand tobacco smoke exposure: No Alcohol intake: never Substance use: never Substance use type: does not use Lack of Transportation: No Lack of Food: Never True Current Housing: I Have Housing Concerned About Future Housing: No Difficulty Paying Gas/Electric Bills: No Difficulty Paying for Meds: No Currently Unemployed: No Education: High School Diploma/GED Difficulty w/ Childcare or Family Care: No Gender identity (if verbalized by the patient): Female Sexual Orientation (if Verbalized by the Patient): Straight or Heterosexual Spiritual care concerns: No Exam Const: General: alert Nutritional Appearance: well nourished Orientation/consciousness: patient oriented x3 HENMT: Head: normal to inspection Mouth
[2023-04-22] MEDS: CEFEPIME 1 GM/NS 50 ML 1 GM/50 ML BAG IVPB (14:44)
[2023-04-22 15:27] LABS: Alveolar/Arterial O2 Gradient 81.7 mmHg; Base Excess ABG 3.2 mEq/l (+/-2.0); Carboxyhemoglobin 1.5 % THb (0-2.0); Fractional Inspired Oxygen 30 %; HCO3 ABG 25.5 mEq/l (22.0-26.0); Methemoglobin ABG 0.2 %THb (0-1.5); Oxygen Content ABG 17.1 %vol (16.0-22.0); Oxygen Saturation ABG 97.9 % (95.0-100.0); Oxyhemoglobin 95.7 % THb (90.0-100.0); PCO2 ABG 31.9 mmHg (35.0-45.0); PO2 ABG 94.7 mmHg (80.0-100.0); PO2 FiO2 Ratio Arterial Blood 3.16 %; Reduced Hemoglobin 2.6 %THb (0-5.0); Total Hemoglobin 12.6 g/dL (12.0-18.0)
[2023-04-22 15:28] LABS: Device NASAL CANNULA; Liters per Minute 2.5 LPM; Modified Allen's Test Pass; Site Drawn RIGHT RADIAL; pH ABG 7.521 (7.350-7.450)
[2023-04-22] MEDS: VANCOMYCIN 1,250 MG/NS 250 ML 1,250 MG/250 ML BAG 166.67 MG IVPB (15:47)
[2023-04-22] MEDS: VALPROIC ACID INJ 500 MG in DEXTROSE 5% 100 ML 100 MG IVPB (17:52)
[2023-04-22 18:26] LABS: Amphetamine Screen Urine Negative (Negative); Barbiturate Screen Urine Negative (Negative); Benzodiazepines Screen Urine Negative (Negative); Cannabinoid Screen Urine Negative (Negative); Cocaine Screen Urine Negative (Negative); Methadone Screen Urine Negative (Negative); Opiate Screen Urine Negative (Negative); Phencyclidine Screen Urine Negative (Negative)
[2023-04-22 18:32] LABS: Valproic Acid 10.2 ug/mL (50-120)
[2023-04-22 18:34] LABS: Magnesium 2.3 mg/dL (1.6-2.3)
[2023-04-22 18:45] LABS: Ethanol < 10 mg/dL (<10)
[2023-04-22] MEDS: levETIRAcetam IV 3,000 MG in DEXTROSE 5% 100 ML 780 MG IVPB (19:31)
[2023-04-23] VITALS (36 sets, daily range): BP systolic 65–122; BP diastolic 50–86; PULSE 81–117; RESP 16–29; TEMP 36.2–38.1; O2SAT 24–100
[2023-04-23] MEDS: DIVALPROEX SODIUM DR 250 MG TABEC PO ×4 (00:23→22:17)
[2023-04-23] MEDS: ACETAMINOPHEN 500 MG TABLET 1000 MG PO (05:28)
[2023-04-23] MEDS: HYDROmorphone HCL INJ (*CRX) 1 MG/ML SYR 0.5 MG IV PUSH (06:13)
[2023-04-23 07:10] LABS: Estimated CRCL calculation 89 ml/min; Estimated Glomerular Filt Rate > 60
--- NOTE | 2023-04-23 07:47 | PC.NURSE ---
[employer] [employer] Technician called [facility] at [phone] and checked status of transfer, still no bed available.
[2023-04-23] MEDS: VANCOMYCIN 1,250 MG/NS 250 ML 1,250 MG/250 ML BAG 166.67 MG IVPB (08:59)
--- NOTE | 2023-04-23 10:44 | PC.NURSE ---
Attempted to readjust patient at 1040 and patient denied said she wants to stay in current position, sitting up, because it hurts to lay in a different position.
--- NOTE | 2023-04-23 11:14 | PC.NURSE ---
Called nutrition at 1114 and ordered a tray
--- NOTE | 2023-04-23 14:21 | PC.NURSE ---
Pt was repositioned and pillow was placed under the right hip. Placed a Mediplex over buttocks.
[2023-04-23] MEDS: ACETAMINOPHEN 325 MG TABLET 650 MG PO ×2 (16:06→22:06)
--- NOTE | 2023-04-23 16:12 | ADMGEN ---
This patient, Jane Pereyar, was admitted to [facility] Surg Room 325-01. Patient/family oriented to hospital policies and general routines including ID bracelet, bed and alarms, visiting hours, pain management, procedures, bathroom and other care routines, personal items, smoking policy, room service/diet, and visiting hours. Information on how to activate the Rapid Response Team has been discussed. Patient/Family are encouraged to report perceived risks to care and to ask questions if they do not understand what they are told or what they should do.
--- NOTE | 2023-04-23 17:49 | PM.IMHP ---
H&P: HPI History of Present Illness Date/Time: 04/23/23 17:10 Chief Complaint: Unwitnessed fall. Narrative: This is a pleasant 72-year-old female with history of seizures, brain aneurysm, brain mass with chronic vasogenic edema and herniation, paroxysmal atrial fibrillation on chronic anticoagulation, coronary artery disease, hypertension, and hypothyroidism who presented to the emergency department yesterday afternoon via EMS from home for evaluation after a fall. The patient provides the following history. She lives in her own home and has a friend Amanda who comes to help out. She was last seen normal on . Yesterday her home health aide visited and found the patient on the floor in soiled clothing. She was unable to state how she ended up on the ground but she reports that she falls frequently due to balance issues. She does have a walker at home that she uses. She was noted to have an abrasion on her left posterior shoulder but no other significant injuries. Head CT done on arrival showed no significant change in a 2.8 cm extra-axial mass at the anterior right sylvian fissure most likely representing meningioma with no significant change in extensive right-sided cerebral vasogenic edema with right-sided uncal herniation and subfalcine herniation with 9 mm right to left midline shift. Chest x-ray showed probable central congestive changes bilaterally, left greater than right though atypical infection is a possibility. CT of the abdomen pelvis showed multiple healing left-sided rib fractures, mild interval worsening of an L2 compression fracture, and mild bruising of the left anterolateral abdominal wall. Transfer was initiated to tertiary care given her brain CT findings. She was accepted [facility] however bed has not yet become available and she is being admitted to the medical floor in this setting, pending bed availability. Since arrival to the ER she has developed a low-grade fever. Labs were significant for a WBC count of 16.1, sodium 137, potassium 3.3, BUN 20, creatinine 0.60, CRP 7.3. Urinalysis was positive for 1+ protein, 2+ ketones, 2+ bilirubin, 3 to 5 RBC, 0 to 5 WBC. He tested negative for influenza and COVID. At the time my evaluation she is resting comfortably. She complains of some mild discomfort in her left side and shoulder area. She has a bit of a cough however it is nonproductive. She does not feel feverish. She denies chills, sweats, headache, sinus congestion, sore throat, nausea, vomiting, diarrhea, and dysuria. Review of Systems Review of Systems: Twelve systems were reviewed and are negative except for as per HPI. [facility] Past Medical History Medical History (Updated 04/27/23 @ 13:15 by Marlee Bender PA-C) Age-related osteoporosis without current pathological fracture Atrial fibrillation, chronic Chronic atrial fibrillation Elbow fracture, left (~05/2021) Essential hypertension Fall Hyperlipidemia, unspecified Hypothyroidism, unspecified Meningioma, cerebral Seizure disorder Supraventricular tachycardia Surgical History Surgical History (Updated 04/27/23 @ 13:15 by Marlee Bender PA-C) History of cardiac radiofrequency ablation (03/2021) for SVT History of elbow surgery (05/2021) ORIF left elbow fracture History of hysterectomy S/P angiogram of extremity Right lower extremity. Family History Family History Mother Family history of malignant neoplasm of breast Other Family history of cardiovascular disease Hypertension Social History Social History (Updated 04/27/23 @ 13:16 by Marlee Bender PA-C) Social History: Surrogate medical decision maker: Frida Pereyra, daughter. Code status: Full code. Smoking status: Former smoker Second hand tobacco smoke exposure: No Additional smoking assessment comments: smoked for 6 months at age 14 Alcohol intake: never Substance use: never Substance use type: does not
[2023-04-23] MEDS: LACTATED RINGERS 500 ML 999 ML IV CONT (18:07)
[2023-04-23] MEDS: RIVAROXABAN 20 MG TABLET PO (18:09)
[2023-04-23 18:19] LABS: Basophils Percent Auto 0.2 % (0.2-1.2); Eosinophils Absolute Auto 0.1 K/mm3 (0-0.3); Eosinophils Percent Auto 0.8 % (0-4.4); Hematocrit 33.7 % (37.0-47.0); Hemoglobin 10.9 g/dL (12.0-15.0); Immature Granulocyte Absolute 0.14 K/mm3 (0.00-0.031); Immature Granulocyte Percent A 0.9 % (0-0.5); Lymphocytes Absolute Auto 1.48 K/mm3 (0.9-3.2); Lymphocytes Percent Auto 9.2 % (18.3-44.2); Mean Corpuscular HGB Conc 32.3 g/dl (32-36); Mean Corpuscular Hemoglobin 31.2 pg (26-34); Mean Corpuscular Volume 96.6 fl (80-100); Mean Platelet Volume 9.4 fl (7.4-10.4); Monocytes Absolute Auto 1.3 K/mm3 (0.1-0.6); Monocytes Percent Auto 8.2 % (2.6-8.5); Neutrophils Percent Auto 80.7 % (45.5-73.1); Platelet Count Result 177 k/mm3 (150-375); Red Blood Count 3.49 M/mm3 (4.2-5.4); White Blood Count 16.1 K/mm3 (4.5-10.0)
[2023-04-23 18:40] LABS: NT Pro B Type Natriuretic Pept 1070 pg/mL (19.9-100)
[2023-04-23 18:50] LABS: Alanine Aminotransferase 35 U/L (6-35); Albumin Level 2.7 g/dL (3.5-5.1); Alkaline Phosphatase 58 U/L (38-126); Anion Gap 4 mmol/L (8-16); Aspartate Amino Transferase 53 U/L (14-36); Bilirubin,Total 0.6 mg/dL (0.2-1.3); Blood Urea Nitrogen 25 mg/dL (7-17); Calcium 7.7 mg/dL (8.4-10.2); Carbon Dioxide 27 mmol/L (22-30); Chloride 96 mmol/L (98-107); Estimated CRCL calculation 75 ml/min; Estimated Glomerular Filt Rate > 60; Glucose 114 mg/dL (65-110); Magnesium 2.2 mg/dL (1.6-2.3); Potassium 3.4 mmol/L (3.4-5.0); Sodium 127 mmol/L (137-145)
[2023-04-23 19:07] LABS: CRP 15.1 mg/dL (<1.0)
[2023-04-23 19:13] LABS: Procalcitonin 0.1 ng/mL
[2023-04-23] MEDS: VANCOMYCIN 1,250 MG/NS 250 ML 1,250 MG/250 ML BAG 166 MG IVPB (20:13)
[2023-04-23] MEDS: ATORVASTATIN 20 MG TABLET PO (20:23)
[2023-04-23] MEDS: METOPROLOL TARTRATE 25 MG TABLET PO (20:24)
[2023-04-24] VITALS (14 sets, daily range): BP systolic 113–1220; BP diastolic 74–94; PULSE 75–118; RESP 16–18; TEMP 36.1–37.6; O2SAT 91–97; BMI 33.5
[2023-04-24] MEDS: AZITHROMYCIN 250 MG TABLET 500 MG PO (01:16)
[2023-04-24 02:02] LABS: Anion Gap 2 mmol/L (8-16); Blood Urea Nitrogen 16 mg/dL (7-17); Calcium 7.9 mg/dL (8.4-10.2); Carbon Dioxide 31 mmol/L (22-30); Chloride 93 mmol/L (98-107); Estimated CRCL calculation 89 ml/min; Estimated Glomerular Filt Rate > 60; Glucose 116 mg/dL (65-110); Potassium 3.2 mmol/L (3.4-5.0); Sodium 126 mmol/L (137-145)
[2023-04-24 03:31] LABS: Creatinine Urine 24.9 mg/dL; Urea Random Urine 403 MG/DL
[2023-04-24 03:54] LABS: Sodium Urine Random < 5 meq/L
[2023-04-24] MEDS: DIVALPROEX SODIUM DR 250 MG TABEC PO ×3 (06:24→22:22)
[2023-04-24] MEDS: LEVOTHYROXINE SODIUM 75 MCG TABLET PO (06:24)
[2023-04-24 07:39] LABS: Estimated CRCL calculation 95 ml/min; Estimated Glomerular Filt Rate > 60
[2023-04-24 07:46] LABS: Vancomycin Trough 13.2 ug/mL (10.0-20.0)
[2023-04-24] MEDS: METOPROLOL TARTRATE 25 MG TABLET PO ×2 (08:16→20:22)
[2023-04-24] MEDS: FUROSEMIDE 40 MG TABLET PO (08:16)
[2023-04-24] MEDS: VITAMIN E 1,000 UNIT CAPSULE 1000 UNIT PO (08:16)
[2023-04-24] MEDS: DEXAMETHASONE 2 MG TABLET PO (08:19)
[2023-04-24] MEDS: MULTIVITAMINS /C LUTEIN (CENTRUM SILVER) TABLET *BKC 1 TAB PO (08:19)
[2023-04-24] MEDS: CHOLECALCIFEROL 1,000 UNITS TABLET 2000 UNITS PO (08:19)
[2023-04-24] MEDS: PANTOPRAZOLE 40 MG TABLET PO (08:50)
[2023-04-24] MEDS: VANCOMYCIN 1,250 MG/NS 250 ML 1,250 MG/250 ML BAG 166.67 MG IVPB ×2 (08:50→20:14)
--- NOTE | 2023-04-24 10:04 | WPDNEURCNPN ---
Assessment and Plan Assessment and plan (1) Unwitnessed fall: Code(s): R29.6 - Repeated falls Status: Acute (2) Seizure disorder: Code(s): G40.909 - Epilepsy, unspecified, not intractable, without status epilepticus Status: Acute (3) Vasogenic brain edema: Code(s): G93.6 - Cerebral edema Status: Acute (4) Pneumonia: Code(s): J18.9 - Pneumonia, unspecified organism Status: Acute Plan Jane Pereyra is a 72 year old female with a history of meningioma with vasogenic edema and seizures, atrial fibrillation, hypothyroidism, hyperlipidemia, hypertension presenting after being found down. Suspect breakthrough seizure, in the setting of medication non-compliance. Would not increase medications. Awaiting transfer. Consult date: 04/24/23 Reason for consult: Seizure HPI: Jane Pereyra is a 72 year old female with a history of meningioma with vasogenic edema and seizures, atrial fibrillation, hypothyroidism, hyperlipidemia, hypertension presenting after being found down. Patient was found down on day of presentation by her aide. Her clothes were soiled. Patient had no recollection of falling, but she does have a history of falls. When she presented to [place] ED she appeared to be confused, which raised concern for possible unwitnessed seizure. CT head showed 2.8cm meningioma in the anterior R sylvian fissure, and extensive right sided vasogenic edema with evidence of uncal hernation, subfalcine hernation, and 9mm midline shift (all unchanged from last CT from 02/26/23). The case was discussed by the ED with [facility] Neurosurgery and patient was accepted for transfer but bed was not available. ER discussed case with Dr. Shen who agreed to consultation while patient is admitted at [place] pending transfer. Patient received Keppra 3 gram load and VPA 500mg. Her home medications lists her anti-seizure medications as Keppra 750mg BID and VPA 125mg QID. There was report that patient had been out of her medications. She was also started on Dexamethasone 2mg daily for the edema. She had low grade temperature on admission and CXR raised concern for pneumonia, so she is also on antibiotics currently. Review of Systems Review of Systems: ROS unobtainable: Yes unobtainable due to medical condition and unobtainable due to mental status PMFSH Past Medical History Medical History Age-related osteoporosis without current pathological fracture Atrial fibrillation, chronic Chronic atrial fibrillation Elbow fracture, left (~05/2021) Essential hypertension Fall Hyperlipidemia, unspecified Hypothyroidism, unspecified Meningioma, cerebral S/P angiogram of extremity Right femoral area Seizure disorder Supraventricular tachycardia Surgical History Surgical History History of cardiac radiofrequency ablation (03/2021) for SVT History of elbow surgery (05/2021) ORIF left elbow fracture History of hysterectomy Family History Family History Mother Family history of malignant neoplasm of breast Other Family history of cardiovascular disease Hypertension Social History Social History Social History: Surrogate medical decision maker: Code status: Full code. Smoking status: Former smoker Second hand tobacco smoke exposure: No Additional smoking assessment comments: smoked for 6 months at age 14 Alcohol intake: never Substance use: never Substance use type: does not use Lack of Transportation: No Lack of Food: Never True Current Housing: I Have Housing Concerned About Future Housing: No Difficulty Paying Gas/Electric Bills: No Difficulty Paying for Meds: No Currently Unemployed: No Education: High School Diploma/GED Difficulty w/ Childcare or Family Care: No [place]
[2023-04-24] MEDS: SILVERGEL (ELTA) 45 ML 1 APPLIC TOPICAL (10:08)
[2023-04-24 17:04] LABS: Levetiracetam Keppra <2.0 mcg/mL (6.0-46.0)
--- NOTE | 2023-04-24 18:10 | PM.IMPN ---
Progress Note: A&P Assessment and Plan (1) Unwitnessed fall: Code(s): R29.6 - Repeated falls Status: Acute (2) Seizure disorder: Code(s): G40.909 - Epilepsy, unspecified, not intractable, without status epilepticus Status: Acute (3) Vasogenic brain edema: Code(s): G93.6 - Cerebral edema Status: Acute (4) Meningioma: Code(s): D32.9 - Benign neoplasm of meninges, unspecified Status: Acute (5) Pneumonia: Code(s): J18.9 - Pneumonia, unspecified organism Status: Acute Plan The patient presented to the emergency department via EMS from home after she was found down on the ground by her home health aide. Patient does not recall falling. She was confused on arrival to the ED. suspected seizure activity. Workup in the ER with CT head showing left parietal scalp hematoma. No fracture or acute intracranial process. There is 2.8 cm extra-axial mass at the anterior S right sylvian fissure most likely representing a meningioma which has not significantly changed. There is also extensive right-sided cerebral vasogenic edema with right-sided uncal herniation and subfalcine herniation with 9 [id number] midline shift which has significantly changed. Small old infarct at the right cerebellar hemisphere. His been loaded with 3 g Keppra IV PF 500 mg. By usual home medication is Keppra 750 mg b.i.d. BP a 125 mg q.i.d.. Neurology has been consulted. Cervical CT with no fracture or subluxation of the cervical spine Chest x-ray with probable congestive central changes bilaterally left worse than right correlate clinically for atypical infection CT abdomen with multiple healing left-sided rib fractures mild bruising of the left anterolateral abdominal wall. Mild interval worsening of the L2 compression fracture Leukocytosis with WBC 16 kg, respiratory alkalosis 7.52/31/94/25. UA is negative for infection. Hyponatremia with sodium of 127 stable today. Serum osmolality pending. BNP elevated at 1070. TSH is normal. Urine sodium less than 5 Mildly hypokalemic at 3.2 which will be replaced Transfer initiated to [facility] though bed not available Intracranial bases any edema Decadron started Left parietal scalp hematoma Mild fever with elevated WBC count and elevated CRP negative for influenza and COVID. Chest is with congestive changes possible pneumonia started on ceftriaxone azithromycin. Also on vancomycin Ascending thoracic her anxiety 4.9 cm similar size and 2020 Anticoagulation on hold Subjective Date/time seen: 04/24/23 18:10 Interval history: No overnight events reported. Patient feels tired conversant and answering questions. Review of Systems Review of Systems: All systems reviewed & are unremarkable except as noted in HPI and below Exam Narrative: General: Chronically ill-appearing female sitting up in bed in no acute distress somnolent HEENT: Small amount of swelling over the left parietal area. Small laceration measuring approximately 1 in just below the left pre-auricular area. PERRL, EOMI. Sclera anicteric. Tacky mucous membranes. Neck: Supple. No midline vertebral tenderness. Respiratory: Respirations are nonlabored. Occasional wet cough. Faint crackles at the bases. Cardiovascular: Irregularly irregular rate and rhythm. Gastrointestinal: Abdomen is soft, nontender, and nondistended with positive bowel sounds. Skin: Warm and dry. There is some erythema and maceration of the buttocks with a shallow ulcer. Irregularly shaped superficial abrasion on the left superior scapula. Extremities: No cyanosis or clubbing. Chronic, firm edema of the lower legs bilaterally. Peripheral pulses palpable. Neurological: Alert and oriented x4. Cranial nerves 2-12 are grossly intact. Speech is garbled but easy to understand. 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 Psychiatric: Pleasant and cooperative. Appropriate mood and affect. Objective Data Vital Signs Vital Signs: Vit
[2023-04-24] MEDS: ATORVASTATIN 20 MG TABLET PO (20:21)
[2023-04-25] VITALS: PULSE 108
[2023-04-25] MEDS: ACETAMINOPHEN 325 MG TABLET 650 MG PO (00:10)
[2023-04-25 03:35] VITALS: PULSE 108; RESP 16; O2SAT 91
[2023-04-25 04:00] VITALS: PULSE 108
[2023-04-25 04:53] VITALS: BP 127/93; PULSE 88; RESP 18; TEMP 36.1; O2SAT 95
[2023-04-25] MEDS: DIVALPROEX SODIUM DR 250 MG TABEC PO (06:16)
[2023-04-25] MEDS: LEVOTHYROXINE SODIUM 75 MCG TABLET PO (06:17)
[2023-04-25 07:46] LABS: Estimated CRCL calculation 115 ml/min; Estimated Glomerular Filt Rate > 60
[2023-04-25] MEDS: MULTIVITAMINS /C LUTEIN (CENTRUM SILVER) TABLET *BKC 1 TAB PO (08:39)
[2023-04-25] MEDS: PANTOPRAZOLE 40 MG TABLET PO (08:39)
[2023-04-25] MEDS: VITAMIN E 1,000 UNIT CAPSULE 1000 UNIT PO (08:39)
[2023-04-25] MEDS: METOPROLOL TARTRATE 25 MG TABLET PO (08:39)
[2023-04-25] MEDS: FUROSEMIDE 40 MG TABLET PO (08:39)
[2023-04-25] MEDS: CHOLECALCIFEROL 1,000 UNITS TABLET 2000 UNITS PO (08:39)
[2023-04-25] MEDS: DEXAMETHASONE 2 MG TABLET PO (08:39)
[2023-04-25] MEDS: SILVERGEL (ELTA) 45 ML 1 APPLIC TOPICAL (08:40)
[2023-04-25] MEDS: AZITHROMYCIN 250 MG TABLET PO (08:40)
[2023-04-25] MEDS: VANCOMYCIN 1,250 MG/NS 250 ML 1,250 MG/250 ML BAG 166.6 MG IVPB (08:42)
[2023-04-25 08:55] VITALS: O2SAT 93
--- NOTE | 2023-04-25 11:04 | PM.TDS ---
Transfer Discharge Sum: Prov Provider Date of admission: 04/24/23 18:23 Primary care physician: Candido Johansen MD Admitting clinician: Carlitos Cox MD Consults: 04/23/23 15:00 Consult to Physician Routine Comment: Spoke to 04/23/23 @ [phone] (,) Consulting Provider: Omi Shen will call order clerk/MD group to consult: jane Reason for consultation: vasogenic edema, seizure Has provider been notified: Yes DS: Admitting Diagnosis Discharge Date 04/26/2023 Admitting Diagnosis Altered mental status DS: Discharge Diagnosis Discharge Diagnosis (1) Unwitnessed fall: Code(s): R29.6 - Repeated falls Status: Acute (2) Seizure disorder: Code(s): G40.909 - Epilepsy, unspecified, not intractable, without status epilepticus Status: Acute (3) Vasogenic brain edema: Code(s): G93.6 - Cerebral edema Status: Acute (4) Meningioma: Code(s): D32.9 - Benign neoplasm of meninges, unspecified Status: Acute (5) Pneumonia: Code(s): J18.9 - Pneumonia, unspecified organism Status: Acute Transfer Discharge Sum: Med Medications Active and Home Medications: Home Medications atorvastatin 20 mg tablet 20 mg PO QHS 10/30/22 [History Confirmed 04/23/23] cholecalciferol (vitamin D3) 50 mcg (2,000 unit) capsule 50 mcg PO DAILY 10/30/22 [History Confirmed 04/23/23] metoprolol tartrate 100 mg tablet 25 mg PO BID 10/30/22 [History Confirmed 04/23/23] vitamin E mixed 1,000 unit capsule 1,000 unit PO DAILY 10/30/22 [History Confirmed 04/23/23] hizuocgw-kewj-flap 8 mg-folic 400 mcg-K 50 mcg-lutein 300 mcg tablet (Centrum Silver Women) 1 tablet PO DAILY 01/01/23 [History Confirmed 04/23/23] levothyroxine 75 mcg tablet 75 mcg PO DAILY #90 tabs 02/17/23 [Rx Confirmed 04/23/23] dexamethasone 2 mg tablet 2 mg PO DAILY 04/23/23 [History Confirmed 04/23/23] divalproex 125 mg capsule,delayed release sprinkle 125 mg PO Q8H 04/23/23 [History Confirmed 04/23/23] furosemide 40 mg tablet 40 mg PO DAILY 04/23/23 [History Confirmed 04/23/23] levetiracetam 750 mg tablet 750 mg PO BID 04/23/23 [History Confirmed 04/23/23] pantoprazole 40 mg tablet,delayed release See Rx Instructions .Route .COMPLEX 04/23/23 [History Confirmed 04/23/23] rivaroxaban 20 mg tablet (Xarelto) 20 mg PO DAILY 04/23/23 [History Confirmed 04/23/23] Active Medications Acetaminophen (Acetaminophen 325 Mg Tablet) 650 mg PO Q6H PRN PRN Reason: Mild Pain (1-3) or Fever Last Admin: 04/25/23 00:10 Dose: 650 mg Hydrocodone Bitart/Acetaminophen (Hydrocodone/Acetaminophen (*Crx) 5-325 Mg Tablet) 1 tab PO Q4H PRN PRN Reason: Pain Rated 4-6 Atorvastatin Calcium (Atorvastatin 20 Mg Tablet) 20 mg PO QHS [facility] Last Admin: 04/24/23 20:21 Dose: 20 mg Azithromycin (Azithromycin 250 Mg Tablet) 250 mg PO DAILY [facility] Stop: 04/28/23 09:01 Last Admin: 04/25/23 08:40 Dose: 250 mg Dexamethasone (Dexamethasone 2 Mg Tablet) 2 mg PO DAILY [facility] Last Admin: 04/25/23 08:39 Dose: 2 mg Divalproex Sodium (Divalproex Sodium Dr 250 Mg Tabec) 250 mg PO Q8HR [facility] Last Admin: 04/25/23 06:16 Dose: 250 mg Furosemide (Furosemide 40 Mg Tablet) 40 mg PO DAILY [facility] Last Admin: 04/25/23 08:39 Dose: 40 mg Hydromorphone HCl (Hydromorphone Hcl Inj (*Crx) 1 Mg/Ml Syr) 0.5 mg IV PUSH Q4H PRN PRN Reason: Pain Rated 7-10 Levetiracetam 1,500 mg/ (Dextrose) 115 mls @ 460 mls/hr IVPB Q12HR [facility] Last Infusion: 04/25/23 09:00 Dose: Infused Vancomycin HCl (Vancomycin 1,250 Mg/Ns 250 Ml) 1,250 mg in 250 mls @ 166.667 mls/hr IVPB Q12H [facility] Last Admin: 09/22/23 08:42 Dose: 166.6 mls/hr Ceftriaxone Sodium (Rocephin 1 Gm/Ns 50 Ml) 1 gm in 50 mls @ 100 mls/hr IVPB Q24H [facility] Last Infusion: 04/25/23 01:31 Dose: Infused Levetiracetam (Levetiracetam 250 Mg Tablet) 750 mg PO BID [facility] Levothyroxine Sodium (Levothyroxine Sodium 75 Mcg Tablet) 75 mcg PO DAILY@0630 [facility] Last Admin: 04/25/23 06:17 Dose: 75 mcg Metoprolol Tartrate (Metop
[2023-04-27 11:15] LABS: Pneumococcal Antigen Urine Not Detected (Not Detected)
[2023-04-28 06:14] LABS: Legionella pneumophila Ag Ur Not Detected (Not Detected)
[2023-04-28 21:14] LABS: Osmolality, Urine 206 mOsm/kg (50-1200)
[2023-04-29 14:44] LABS: Mycoplasma IgM Antibody Titer 49 U/mL (<770)
== END 2023-04-25 11:39 | disposition short-term general hospital (02) | DRG 80 ==
LOC: ANHED 04-23 03:27 → ANH3MEDSUR 04-23 15:50
PROVIDERS: General Practice; Physician Assistant; Admitting Provider Chiropractor; Emergency Provider Emergency Medicine; PCP Family Medicine; Visit Provider Internal Medicine
DX: G93.6 Cerebral edema (principal); G93.5 Compression of brain; J18.9 Pneumonia, unspecified organism; S32.028A Other fracture of second lumbar vertebra, initial encounter for closed fracture; I48.20 Chronic atrial fibrillation, unspecified; E87.1 Hypo-osmolality and hyponatremia; D32.0 Benign neoplasm of cerebral meninges; S40.212A Abrasion of left shoulder, initial encounter; S00.03XA Contusion of scalp, initial encounter; W19.XXXA Unspecified fall, initial encounter; E03.9 Hypothyroidism, unspecified; E87.6 Hypokalemia; E78.5 Hyperlipidemia, unspecified; G40.909 Epilepsy, unspecified, not intractable, without status epilepticus; I10 Essential (primary) hypertension; I25.10 Atherosclerotic heart disease of native coronary artery without angina pectoris; M81.0 Age-related osteoporosis without current pathological fracture; Z90.710 Acquired absence of both cervix and uterus; Z79.01 Long term (current) use of anticoagulants; Z87.891 Personal history of nicotine dependence; Z91.148 Patient's other noncompliance with medication regimen for other reason; Z86.73 Personal history of transient ischemic attack (TIA), and cerebral infarction without residual deficits; Z20.822 Contact with and (suspected) exposure to COVID-19
CPT/HCPCS: 36415; 36600; 70450; 71045; 72125; 74177; 80048; 80053; 80164; 80177; 80202; 80307; 81001; 82375; 82550; 82565; 82570; 82805; 83050; 83605; 83735; 83880; 83930; 83935; 84145; 84300; 84443; 84540; 85025; 85610; 85730; 86140; 86738; 87040; 87449; 87636; 87899; 93005; 96361; 96365; 96366; 96367; 96376; 99285; A9270; G0378; J0692; J0696; J1170; J1953; J3370; J7030; J7120; J8540; Q9967

== ENCOUNTER 2023-05-02 10:05 | Emergency (ER) | payer MEDICARE, SELFPAY ==
[2023-05-02] VITALS (10 sets, daily range): BP systolic 108–154; BP diastolic 80–101; PULSE 89–110; RESP 15–27; TEMP 36.4–36.7; O2SAT 96–100
--- NOTE | ~2023-05-02 | XR_ITS ---
EXAMINATION: XR chest 1V portable 05/02/2023 10:53 INDICATION: Chest pain and irregular heartbeat PROCEDURE: AP portable chest COMPARISON: Comparison to multiple prior studies sequentially, with oldest reviewed study dated 01/01. FINDINGS: The lungs are clear. The cardiomediastinal silhouette is within normal limits. There are no pleural effusions. There is no pneumothorax suspected. IMPRESSION: 1: NO ACUTE CARDIOPULMONARY DISEASE. Reviewed, dictated and finalized at location B.
--- NOTE | 2023-05-02 10:13 | ECG_ITS ---
Measurements Intervals [place] Rate: 105 P: 88 DE: 179 QRS: 8 QRSD: 89 T: 71 QT: 368 QTc: 487 Interpretive Statements SINUS TACHYCARDIA ATRIAL PREMATURE COMPLEXES NONSPECIFIC ST & T-WAVE ABNORMALITY- LAT/HIGH LAT LEADS ABNORMAL ECG COMPARED TO ECG 04/22/2023 12:28:01 NO SIGNIFICANT CHANGES Electronically Signed On 05-02-2023 10:25:03 CDT by Black Zeng D.O.
[2023-05-02 10:41] LABS: Basophils Absolute Auto 0.1 K/mm3 (0.0-0.1); Basophils Percent Auto 0.7 % (0.2-1.2); Eosinophils Absolute Auto 0.2 K/mm3 (0-0.3); Hematocrit 39.5 % (37.0-47.0); Hemoglobin 12.7 g/dL (12.0-15.0); Immature Granulocyte Absolute 0.38 K/mm3 (0.00-0.031); Immature Granulocyte Percent A 3.1 % (0-0.5); Lymphocytes Absolute Auto 1.62 K/mm3 (0.9-3.2); Lymphocytes Percent Auto 13.3 % (18.3-44.2); Mean Corpuscular HGB Conc 32.2 g/dl (32-36); Mean Corpuscular Volume 96.3 fl (80-100); Mean Platelet Volume 8.5 fl (7.4-10.4); Monocytes Absolute Auto 1.1 K/mm3 (0.1-0.6); Neutrophils Absolute Auto 8.7 K/mm3 (1.3-6.7); Neutrophils Percent Auto 71.9 % (45.5-73.1); Platelet Count Result 375 k/mm3 (150-375); White Blood Count 12.1 K/mm3 (4.5-10.0)
[2023-05-02 10:52] LABS: INR 1.2; Prothrombin Time 15.7 Seconds (11.1-14.7)
[2023-05-02 10:53] LABS: Alanine Aminotransferase 40 U/L (6-35); Albumin Level 3.2 g/dL (3.5-5.1); Alkaline Phosphatase 62 U/L (38-126); Anion Gap 1 mmol/L (8-16); Aspartate Amino Transferase 29 U/L (14-36); Bilirubin,Total 0.5 mg/dL (0.2-1.3); Blood Urea Nitrogen 11 mg/dL (7-17); Calcium 8.6 mg/dL (8.4-10.2); Carbon Dioxide 35 mmol/L (22-30); Chloride 98 mmol/L (98-107); Estimated Glomerular Filt Rate > 60; Glucose 124 mg/dL (65-110); Lipase 161 U/L (23-300); Partial Thromboplastin Time 25.7 SECONDS (22.3-36.8); Potassium 3.6 mmol/L (3.4-5.0); Sodium 134 mmol/L (137-145)
[2023-05-02 11:02] LABS: Troponin I 0.013 ng/mL (0.000-0.034)
--- NOTE | 2023-05-02 11:42 | ED.CHESTPAIN ---
HPI - Chest Pain General Chief Complaint: Chest Pain Stated Complaint: cp Time Seen by Provider: 05/02/23 11:41 Source: patient and EMS Mode of arrival: EMS Limitations: no limitations History of Present Illness HPI narrative: Patient 72 years old white female came from [facility]assisted living by ambulance because was feeling funny feeling at the left chest 1 hour prior to arrival, currently denying any symptoms and would like to go back home. Patient is awake, alert, oriented x4, denying any pain or any complaint. She denies any fever, chills, chills, nausea, vomiting, back pain, abdominal pain, shortness of breath, or headache currently patient on Xarelto. History of seizure, vasogenic brain edema, pneumonia, multiple falls Related Data Home Medications Medication Instructions Recorded Confirmed atorvastatin 20 mg tablet 20 mg PO QHS 10/30/22 04/23/23 cholecalciferol (vitamin D3) 50 50 mcg PO DAILY 10/30/22 04/23/23 mcg (2,000 unit) capsule metoprolol tartrate 100 mg tablet 25 mg PO BID 10/30/22 04/23/23 vitamin E mixed 1,000 unit capsule 1,000 unit PO DAILY 10/30/22 04/23/23 pzvjxrab-hewf-dsmn 8 mg-folic 400 1 tablet PO DAILY 01/01/23 04/23/23 mcg-K 50 mcg-lutein 300 mcg tablet (Centrum Silver Women) dexamethasone 2 mg tablet 2 mg PO DAILY 04/23/23 04/23/23 divalproex 125 mg capsule,delayed 125 mg PO Q8H 04/23/23 04/23/23 release sprinkle furosemide 40 mg tablet 40 mg PO DAILY 04/23/23 04/23/23 levetiracetam 750 mg tablet 750 mg PO BID 04/23/23 04/23/23 pantoprazole 40 mg tablet,delayed See Rx Instructions .Route .COMPLEX 04/23/23 04/23/23 release rivaroxaban 20 mg tablet (Xarelto) 20 mg PO DAILY 04/23/23 04/23/23 Allergies Allergy/AdvReac Type Severity Reaction Status Date / Time flecainide Allergy Unknown Verified 05/02/23 10:18 sotalol Allergy Unknown Verified 05/02/23 10:19 Review of Systems Review of Systems: All systems reviewed & are unremarkable except as noted in HPI and below PMFSH Past Medical History Medical History Age-related osteoporosis without current pathological fracture Atrial fibrillation, chronic Chronic atrial fibrillation Elbow fracture, left (~05/2021) Essential hypertension Fall Hyperlipidemia, unspecified Hypothyroidism, unspecified Meningioma, cerebral Seizure disorder Supraventricular tachycardia Surgical History Surgical History History of cardiac radiofrequency ablation (03/2021) for SVT History of elbow surgery (05/2021) ORIF left elbow fracture History of hysterectomy S/P angiogram of extremity Right lower extremity. Family History Family History Mother Family history of malignant neoplasm of breast Other Family history of cardiovascular disease Hypertension Social History Social History Social History: Surrogate medical decision maker: Frida Pereyra, daughter. Code status: Full code. Smoking status: Former smoker Second hand tobacco smoke exposure: No Additional smoking assessment comments: smoked for 6 months at age 14 Alcohol intake: never Substance use: never Substance use type: does not use Lack of Transportation: No Lack of Food: Never True Current Housing: I Have Housing Concerned About Future Housing: No Difficulty Paying Gas/Electric Bills: No Difficulty Paying for Meds: No Currently Unemployed: No Education: High School Diploma/GED Difficulty w/ Childcare or Family Care: No Additional living arrangements comments: . She has 2 sons, 1 son and 1 daughter. 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 Spiritual care concerns: No Exam Narrative: General appearance: Well-developed, well-nourished Skin: Bruises at the right upper back, healing wound on the lef
[2023-05-02 13:54] LABS: Troponin I < 0.012 ng/mL (0.000-0.034)
--- NOTE | 2023-05-02 14:02 | PC.NURSE ---
[facility] nurse called for update. Staff will f/u later also.
== END 2023-05-02 17:04 ==
PROVIDERS: Emergency Provider Emergency Medicine; PCP Family Medicine
DX: R07.9 Chest pain, unspecified (principal); I48.20 Chronic atrial fibrillation, unspecified; I10 Essential (primary) hypertension; G40.909 Epilepsy, unspecified, not intractable, without status epilepticus; G93.6 Cerebral edema; D32.9 Benign neoplasm of meninges, unspecified; E78.5 Hyperlipidemia, unspecified; E03.9 Hypothyroidism, unspecified; M81.0 Age-related osteoporosis without current pathological fracture; Z90.710 Acquired absence of both cervix and uterus; Z87.01 Personal history of pneumonia (recurrent); Z87.891 Personal history of nicotine dependence; Z79.01 Long term (current) use of anticoagulants; R00.0 Tachycardia, unspecified; I49.1 Atrial premature depolarization; R94.31 Abnormal electrocardiogram [ECG] [EKG]
CPT/HCPCS: 36415; 71045; 80053; 83690; 84484; 85025; 85610; 85730; 93005; 99284

== ENCOUNTER 2023-06-29 19:10 | Emergency (ER) | payer MEDICARE, SELFPAY ==
[2023-06-29] VITALS (11 sets, daily range): BP systolic 121–126; BP diastolic 89–101; PULSE 78–94; RESP 12–116; TEMP 36.6; O2SAT 100
--- NOTE | ~2023-06-29 | CT_ITS ---
EXAMINATION: CT cervical spine wo con DATE: 06/29/2023 20:57 INDICATION: trauma TECHNIQUE: Computed tomography (CT) of the cervical spine was performed without intravenous contrast. Automated exposure control and iterative reconstruction technique were employed. The dose-length pro duct was 265.11 mGy-cm. COMPARISON: 04/21/2023. FINDINGS: Vertebral Body Alignment: Intact. Craniocervical and atlantoaxial alignment: Moderate degenerative change. Alignment intact. Osseous structures/fracture: No evidence of a lytic or blastic process in the visualized spine. No e vidence of acute fracture. Cervical soft tissues: The paraspinal soft tissues planes are maintained. Endotracheal tube terminate s in the thoracic trachea. Incompletely visualized NG tube. Scattered tree-in-bud opacities in the up per lungs. Degenerative changes: Degenerative changes, without severe neural foraminal or central canal narrowin g. IMPRESSION: No acute fracture or traumatic malalignment in the cervical spine. Tree-in-bud opacities as can be seen with atypical infection (MAC, TB, fungal), ABPA, airways disease (CF, bronchiectasis), and aspiration. Reviewed, dictated and finalized at location K. FURNACE OPERATOR
--- NOTE | ~2023-06-29 | XR_ITS ---
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 RESULT: Lines, tubes, and devices: Endotracheal tube terminating 2 cm above the ellen. Subdiaphragmatic NG tube terminates out of the [id number]. Lungs and pleura: Moderate diffuse reticular opacities. Cardiomediastinal silhouette: Stable. Other: No acute osseous or upper abdominal finding. IMPRESSION: Low positioned endotracheal tube, consider retracting 2 cm. Subdiaphragmatic NG tube. Moderate interstitial edema. Reviewed, dictated and finalized at location K. [employer] MARKETING MANAGER
--- NOTE | ~2023-06-29 | CT_ITS ---
EXAMINATION: CT brain wo con DATE: 06/29/2023 20:57 INDICATION: mental status change . TECHNIQUE: Computed tomography (CT) of the head was performed without intravenous contrast. The mA wa s adjusted according to patient size. Iterative reconstruction technique was employed. The dose-lengt h product was 756.67 mGy-cm. COMPARISON: 04/22/2023. FINDINGS: No acute intracranial hemorrhage or extra-axial fluid collection. Increased mild dilation of the lateral ventricle. Similar 8-9 mm subfalcine herniation. Grossly stabl e size of the 2.8 cm right middle cranial fossa mass. Similar vasogenic edema, right hemispheric sulc al effacement, and uncal herniation. No acute ischemic infarct. Unremarkable dural venous sinus attenuation. No acute osseous abnormality. Left frontal, left ethmoid, and sphenoid mucosal thickening, the remaining aerated spaces are clear. Partially visualized endotracheal and nasogastric tubes. Moderate atrophy and chronic white matter ch alin. Atherosclerotic intracranial calcification. Bilateral lens replacements. 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 IMPRESSION: Slightly increased interval dilation of the left lateral ventricle. Unchanged 2.8 cm middle cranial fossa mass. Similar degree of extensive right hemispheric isotonic edema, right hemispheric sulcal effacement, an d subfalcine and uncal herniation. Reviewed, dictated and finalized at location K. GAGE LOAN OFFICER IMPRESSION: Slightly increased interval dilation of the left lateral ventricle. Unchanged 2.8 cm middle cranial fossa mass. Similar degree of extensive right hemispheric isotonic edema, right hemispheric sulcal effacement, and subfalcine and uncal herniation.
--- NOTE | 2023-06-29 19:46 | ECG_ITS ---
Measurements Intervals [place] Rate: 95 P: IN: 0 QRS: 17 QRSD: 91 T: 73 QT: 392 QTc: 494 Interpretive Statements SINUS RHYTHM BORDERLINE ST-T WAVE ABNORMALITY- ANTEROLATERAL LEADS BASELINE ARTIFACT- I, II, III, AVR, AVL, AVF, V1-V6 BORDERLINE ECG COMPARED TO ECG 05/02/2023 10:11:21 SINUS RHYTHM NOW PRESENT Electronically Signed On 06-29-2023 20:27:51 [employer] by Black Zeng D.O.
--- NOTE | 2023-06-29 19:50 | ED.GENADULT ---
HPI - General Adult General Chief complaint: Shortness of Breath/Dyspnea Stated complaint: SEIZURE X 35 MIN, BEING BAGGED, NPA Time Seen by Provider: 06/29/23 19:44 History of Present Illness HPI narrative: Patient is a 72 year old female with reported history seizure disorder and recent COVID diagnosis here with seizure. EMS was called by her facility after a seizure that lasted approximately 25 minutes before EMS arrival. She reportedly takes keppra. On EMS arrival they gave 2mg of versed, seizure like activity temporarily resolved for about 30 seconds and then restarted. A second dose of 2mg versed was given. Initial BP for EMS was in the 130s but was 90s after versed so 10 micrograms of epinephrine was given. Blood sugar normal for EMS. Patient provides no history, actively seizing. Related Data Home Medications Medication Instructions Recorded Confirmed atorvastatin 20 mg tablet 20 mg PO QHS 10/30/22 04/23/23 cholecalciferol (vitamin D3) 50 50 mcg PO DAILY 10/30/22 04/23/23 mcg (2,000 unit) capsule metoprolol tartrate 100 mg tablet 25 mg PO BID 10/30/22 04/23/23 vitamin E mixed 1,000 unit capsule 1,000 unit PO DAILY 10/30/22 04/23/23 vaspdmjm-mesh-bwhs 8 mg-folic 400 1 tablet PO DAILY 01/01/23 04/23/23 mcg-K 50 mcg-lutein 300 mcg tablet (Centrum Silver Women) dexamethasone 2 mg tablet 2 mg PO DAILY 04/23/23 04/23/23 divalproex 125 mg capsule,delayed 125 mg PO Q8H 04/23/23 04/23/23 release sprinkle furosemide 40 mg tablet 40 mg PO DAILY 04/23/23 04/23/23 levetiracetam 750 mg tablet 750 mg PO BID 04/23/23 04/23/23 pantoprazole 40 mg tablet,delayed See Rx Instructions .Route .COMPLEX 04/23/23 04/23/23 release rivaroxaban 20 mg tablet (Xarelto) 20 mg PO DAILY 04/23/23 04/23/23 Allergies Allergy/AdvReac Type Severity Reaction Status Date / Time flecainide Allergy Unknown Verified 05/02/23 10:18 sotalol Allergy Unknown Verified 05/02/23 10:19 Review of Systems Review of Systems: ROS unobtainable: Yes unobtainable due to medical condition [facility] Past Medical History Medical History Age-related osteoporosis without current pathological fracture Atrial fibrillation, chronic Chronic atrial fibrillation Elbow fracture, left (~05/2021) Essential hypertension Fall Hyperlipidemia, unspecified Hypothyroidism, unspecified Meningioma, cerebral Seizure disorder Supraventricular tachycardia Surgical History Surgical History History of cardiac radiofrequency ablation (03/2021) for SVT History of elbow surgery (05/2021) ORIF left elbow fracture History of hysterectomy S/P angiogram of extremity Right lower extremity. Family History Family History Mother Family history of malignant neoplasm of breast Other Family history of cardiovascular disease Hypertension Social History Social History Social History: Surrogate medical decision maker: Frida Pereyra, daughter. Code status: Full code. Smoking status: Former smoker Second hand tobacco smoke exposure: No Additional smoking assessment comments: smoked for 6 months at age 14 Alcohol intake: never Substance use: never Substance use type: does not use Lack of Transportation: No Lack of Food: Never True Current Housing: I Have Housing Concerned About Future Housing: No Difficulty Paying Gas/Electric Bills: No Difficulty Paying for Meds: No Currently Unemployed: No Education: High School Diploma/GED Difficulty w/ Childcare or Family Care: No Additional living arrangements comments: . She has 2 sons, 1 son and 1 daughter. 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 Spiritual care concerns: No Exam Narrative: GENERAL: unresponsive HEAD: Normocephalic, atraumatic. EYES: PERRLA an
--- NOTE | 2023-06-29 19:52 | PC.NURSE ---
1920 4.5 g of Keppra administered IVPB over 10 minutes per EDP verbal order. 192 5 mg versed administered IV push per EDP verbal order. 193 20 mg etomidate administered IV push per EDP verbal order. 193 100 mg rocuronium administered IV push per EDP verbal order. 193 Pt successfully intubated by Dr. Key. 7.5 ETT, 25 at the gum. Equal chest rise and fall, positive color change.
[2023-06-29 20:05] LABS: Glucose Point of Care 104 mg/dl (65-105)
[2023-06-29] MEDS: SODIUM CHLORIDE 0.9% IV 1,000 ML 999 ML IV CONT ×2 (20:21→23:24)
[2023-06-29] MEDS: PROPOFOL IV EMULSION 100 ML 2.32 MG IV CONT (20:22)
[2023-06-29 21:41] LABS: Basophils Percent Auto 0.2 % (0.2-1.2); Eosinophils Percent Auto 0.2 % (0-4.4); Hematocrit 35.2 % (37.0-47.0); Hemoglobin 11.4 g/dL (12.0-15.0); Immature Granulocyte Absolute 0.07 K/mm3 (0.00-0.031); Immature Granulocyte Percent A 1.2 % (0-0.5); Lymphocytes Absolute Auto 1.47 K/mm3 (0.9-3.2); Lymphocytes Percent Auto 25.8 % (18.3-44.2); Mean Corpuscular HGB Conc 32.4 g/dl (32-36); Mean Corpuscular Hemoglobin 29.2 pg (26-34); Monocytes Absolute Auto 0.4 K/mm3 (0.1-0.6); Monocytes Percent Auto 6.7 % (2.6-8.5); Neutrophils Absolute Auto 3.8 K/mm3 (1.3-6.7); Neutrophils Percent Auto 65.9 % (45.5-73.1); Platelet Count Result 163 k/mm3 (150-375); Red Blood Count 3.91 M/mm3 (4.2-5.4); Red Cell Distribution Width 14.3 % (11.5-14.5); White Blood Count 5.7 K/mm3 (4.5-10.0)
[2023-06-29 21:50] LABS: Appearance Urine Cloudy (Clear); Bacteria Urine 4+ /hpf; Bilirubin Urine Negative (Negative); Color Urine Yellow (Yellow); Glucose Urine UA Negative (Negative); Ketones Urine Negative (Negative); Leukocyte Esterase Ur 3+ LEU/UL (Negative); Need Manual Microscopic Reviewed; Nitrate Urine Positive (Negative); Protein Urine Negative (Negative); RBC Urine 0-2 /hpf (0-2); Specific Grav Ur 1.011 (1.001-1.035); Squamous Epithelial Cell Urine None seen /hpf (Few); WBC Urine >100 /hpf; pH Urine 6.5 (5.0-9.0)
[2023-06-29 21:51] LABS: Ethanol < 10 mg/dL (<10)
[2023-06-29 21:53] LABS: Alanine Aminotransferase 10 U/L (6-35); Albumin Level 2.9 g/dL (3.5-5.1); Alkaline Phosphatase 52 U/L (38-126); Anion Gap 11 mmol/L (8-16); Aspartate Amino Transferase 20 U/L (14-36); Bilirubin,Total 0.8 mg/dL (0.2-1.3); Blood Urea Nitrogen 9 mg/dL (7-17); Carbon Dioxide 23 mmol/L (22-30); Chloride 101 mmol/L (98-107); Creatine Kinase < 20 U/L (30-135); Estimated CRCL calculation 92 ml/min; Estimated Glomerular Filt Rate > 60; Glucose 102 mg/dL (65-110); Magnesium 1.7 mg/dL (1.6-2.3); Potassium 3.4 mmol/L (3.4-5.0); Sodium 135 mmol/L (137-145)
[2023-06-29 21:54] LABS: Add Urine Microscopic? YES
[2023-06-29 21:55] LABS: INR 2.8
[2023-06-29 21:56] LABS: Lactic Acid Reflex 1.3 mmol/L (0.7-2.0); Partial Thromboplastin Time 40.6 SECONDS (22.3-36.8)
[2023-06-29 22:04] LABS: Troponin I < 0.012 ng/mL (0.000-0.034)
[2023-06-29 22:04] LABS: Influenza A QL RT-PCR Negative (Negative); Influenza B QL RT-PCR Negative (Negative); RSV RNA, RT-PCR Negative (Negative); SARS-CoV-2 RNA PCR Positive (Negative)
[2023-06-29] MEDS: MIDAZOLAM 100MG/NS 100ML(*CRX) 100 MG/100 ML BAG IV CONT (22:32)
[2023-06-29] MEDS: cefTRIAXone 2 GM/NS 100 ML 2 GM/100 ML BAG IVPB (22:34)
[2023-06-30 00:46] VITALS: BP 131/96; PULSE 72; RESP 16; O2SAT 100
[2023-06-30 00:51] VITALS: PULSE 87; O2SAT 100
[2023-06-30 01:43] VITALS: PULSE 75; RESP 16
[2023-06-30 01:58] VITALS: BP 111/90; PULSE 79; RESP 16; O2SAT 100
[2023-06-30 02:32] VITALS: PULSE 79; RESP 14
[2023-06-30 03:17] VITALS: BP 100/80; PULSE 77; RESP 15; TEMP 36.2; O2SAT 100
== END 2023-06-30 03:59 | disposition short-term general hospital (02) ==
PROVIDERS: Emergency Provider Student in an Organized Health Care Education/Training Program; PCP Internal Medicine
DX: G40.901 Epilepsy, unspecified, not intractable, with status epilepticus (principal); U07.1 COVID-19; J96.91 Respiratory failure, unspecified with hypoxia; N39.0 Urinary tract infection, site not specified; I48.20 Chronic atrial fibrillation, unspecified; I10 Essential (primary) hypertension; E78.5 Hyperlipidemia, unspecified; E03.9 Hypothyroidism, unspecified; D32.0 Benign neoplasm of cerebral meninges; M81.0 Age-related osteoporosis without current pathological fracture; Z90.710 Acquired absence of both cervix and uterus; Z79.01 Long term (current) use of anticoagulants; Z87.891 Personal history of nicotine dependence; R94.31 Abnormal electrocardiogram [ECG] [EKG]; J81.1 Chronic pulmonary edema
CPT/HCPCS: 31500; 36415; 70450; 72125; 80053; 80307; 81001; 82550; 82948; 83605; 83735; 84484; 85025; 85610; 85730; 87040; 87077; 87086; 87147; 87181; 87186; 87637; 93005; 96361; 96365; 96366; 96367; 96368; 96375; 99291; J0696; J1100; J1953; J2250; J2704; J7030